=== PATIENT | female | born 1955 | race Hispanic/Latino ===

== ENCOUNTER → 2018-11-07 | Day surgery (SDC) | payer MEDICARE, OTHER ==
[~2018-11-07] MED LIST: CYCLOBENZAPRINE10 MG PO; CYMBALTA30 MG PO; FENTANYL CITRATE/PF 100MCG/2 ML INJ ONE; LEVEMIR100 UNIT/1 SQ; LOSARTAN POTASS25 MG PO; LOSARTAN-HCTZ1 EAC1 PO; MIDAZOLAM HCL 2 MG/2 ML VIAL ONE; NOVOLOG MI100 UNIT/1 SQ; OR PHACO EYE KIT ONE; PREOP PHACO EYE KIT ONE; PROVENTIL HFA6.7 GM INH; ULTRAM 50MG50 MG PO; magnesium PO; tri PO; vitamin d3 PO
--- OUTSIDE RECORDS SUMMARY | 2018-11-07 11:51 | XMS REPORT | CCD ---
Author Author Auto Generated Organization [facility] Address Unknown Phone Unavailable Care Team Providers Care Winding Machine Operator Name Role Phone Soy Brooks RP Allergies, Adverse Reactions, Alerts Substance Reaction Status penicillin Active Problem List Condition Effective Dates Status DM - Diabetes mellitus Active HTN - Hypertension Resolved Hyperlipemia Resolved Hypothyroidism Resolved Medications Medication Instructions Start Date End Date Status pneumococcal 0.5 ml, Route: IM, Drug Form: INJ, 08/15/2013 08/15/2013 Completed 23-valent vaccine Start date: 08/15/13 9:00:00, Stop date: 08/15/13 9:00:00 glucagon 1 mg, Route: IM, Drug form: 08/15/2013 08/17/2013 Discontinued PDR/INJ, PRN, PRN Blood Glucose Results, Start date: 08/15/13 2:10:00, Duration: 30 day, Stop date: 09/14/13 1:09:00 Dextrose 50% in 50 mL, Route: IVP, Start date: 08/15/2013 08/17/2013 Discontinued Water IV 08/15/13 2:10:00, Duration: 30 day, Stop date: 09/14/13 1:09:00, PRN Blood Glucose Results NovoLog FlexPen 6 unit, 0.06 mL, Route: SUB-Q, Drug 08/15/2013 08/15/2013 Discontinued form: SOLN, Sliding Scale, PRN Blood Glucose Results, Start date: 08/15/13 2:10:00, Duration: 30 day, Stop date: 09/14/13 1:09:00Roll in palms of hands gently; Do not shake vigorously. (Same as: NovoLog)"single patient use only" Stable for 28 days at room temperature.Expires in days from Date NovoLog FlexPen 3 unit, 0.03 mL, Route: SUB-Q, Drug 08/15/2013 08/15/2013 Discontinued form: SOLN, Sliding Scale, PRN Blood Glucose Results, Start date: 08/15/13 2:10:00, Duration: 30 day, Stop date: 09/14/13 1:09:00Roll in palms of hands gently; Do not shake vigorously. (Same as: NovoLog)"single patient use only" Stable for 28 days at room temperature.Expires in days from Date NovoLog FlexPen 2 unit, 0.02 mL, Route: SUB-Q, Drug 08/15/2013 08/15/2013 Discontinued form: SOLN, Sliding Scale, PRN Blood Glucose Results, Start date: 08/15/13 2:10:00, Duration: 30 day, Stop date: 09/14/13 1:09:00Roll in palms of hands gently; Do not shake vigorously. (Same as: NovoLog)"single patient use only" Stable for 28 days at room temperature.Expires in days from Date NovoLog FlexPen 5 unit, 0.05 mL, Route: SUB-Q, Drug 08/15/2013 08/15/2013 Discontinued form: SOLN, Sliding Scale, PRN Blood Glucose Results, Start date: 08/15/13 2:10:00, Duration: 30 day, Stop date: 09/14/13 1:09:00Roll in palms of hands gently; Do not shake vigorously. (Same as: NovoLog)"single patient use only" Stable for 28 days at room temperature.Expires in days from Date NovoLog FlexPen 4 unit, 0.04 mL, Route: SUB-Q, Drug 08/15/2013 08/15/2013 Discontinued form: SOLN, Sliding Scale, PRN Blood Glucose Results, Start date: 08/15/13 2:10:00, Duration: 30 day, Stop date: 09/14/13 1:09:00Roll in palms of hands gently; Do not shake vigorously. (Same as: NovoLog)"single patient use only" Stable for 28 days at room temperature.Expires in days from Date glucagon 1 mg, Route: IM, PRN, Dosing Weight 08/15/2013 08/15/2013 Deleted 70.455, kg, PRN Blood Glucose Results, Start date: 08/15/13 8:46:00, Duration: 30 day, Stop date: 09/14/13 7:45:00 insulin aspart 2 unit, 0.02 mL, Route: SUB-Q, Drug 08/15/2013 08/17/2013 Discontinued form: SOLN, TID-Before Meals, Dosing Weight 70.455, kg, PRN Blood Glucose Results, Start date: 08/15/13 8:46:00, Duration: 30 day, Stop date: 09/14/13 8:45:00Roll in palms of hands gently; Do not shake vigorously. (Same as: NovoLog)"single patient use only" Stable for 28 days at room temperature.Expires in days from Date insulin aspart 4 unit, 0.04 mL, Route: SUB-Q, Drug 08/15/2013 08/17/2013 Discontinued form: SOLN, Bedtime, Dosing Weight 70.455, kg, PRN Blood Glucose Results, Start date: 08/15/13 8:46:00, Duration: 30 day, Stop date: 09/14/13 8:45:00Roll in palms of hands gently; Do not shake vigorously. (Same as: NovoLog)"single patient use only" Stable for 28 days at room temperature.Expires in days from Date insulin aspart 3 unit, 0.03 mL, Route: SUB-Q, Drug 08/15/2013 08/17/2013 Discontinued form: SOLN, Bedtime, Dosing Weight 70.455, kg, PRN Blood Glucose Results, Start date: 08/15/13 8:46:00, Duration: 30 day, Stop date: 09/14/13 8:45:00Roll in palms of hands gently; Do not shake vigorously. (Same as: NovoLog)"single patient use only" Stable for 28 days at room temperature.Expires in days from Date insulin aspart 2 unit, 0.02 mL, Route: SUB-Q, Drug 08/15/2013 08/17/2013 Discontinued form: SOLN, Bedtime, Dosing Weight 70.455, kg, PRN Blood Glucose Results, Start date: 08/15/13 8:46:00, Duration: 30 day, Stop date: 09/14/13 8:45:00Roll in palms of hands gently; Do not shake vigorously. (Same as: NovoLog)"single patient use only" Stable for 28 days at room temperature.Expires in days from Date insulin aspart 1 unit, 0.01 mL, Route: SUB-Q, Drug 08/15/2013 08/17/2013 Discontinued form: SOLN, Bedtime, Dosing Weight 70.455, kg, PRN Blood Glucose Results, Start date: 08/15/13 8:46:00, Duration: 30 day, Stop date: 09/14/13 8:45:00Roll in palms of hands gently; Do not shake vigorously. (Same as: NovoLog)"single patient use only" Stable for 28 days at room temperature.Expires in days from Date Dextrose 50% Syringe 25 mL, Route: IVP, Dosing Weight 08/15/2013 08/15/2013 Deleted 70.455, kg, PRN, PRN Blood Glucose Results, Start date: 08/15/13 8:46:00, Duration: 30 day, Stop date: 09/14/13 7:45:00 Dextrose 50% Syringe 50 mL, Route: IVP, Dosing Weight 08/15/2013 08/15/2013 Deleted 70.455, kg, PRN, PRN Blood Glucose Results, Start date: 08/15/13 8:46:00, Duration: 30 day, Stop date: 09/14/13 7:45:00 insulin aspart 4 unit, 0.04 mL, Route: SUB-Q, Drug 08/15/2013 08/17/2013 Discontinued form: SOLN, TID-Before Meals, Dosing Weight 70.455, kg, PRN Blood Glucose Results, Start date: 08/15/13 8:46:00, Duration: 30 day, Stop date: 09/14/13 8:45:00Roll in palms of hands gently; Do not shake vigorously. (Same as: NovoLog)"single patient use only" Stable for 28 days at room temperature.Expires in days from Date insulin aspart 8 unit, 0.08 mL, Route: SUB-Q, Drug 08/15/2013 08/17/2013 Discontinued form: SOLN, TID-Before Meals, Dosing Weight 70.455, kg, PRN Blood Glucose Results, Start date: 08/15/13 8:46:00, Duration: 30 day, Stop date: 09/14/13 8:45:00Roll in palms of hands gently; Do not shake vigorously. (Same as: NovoLog)"single patient use only" Stable for 28 days at room temperature.Expires in days from Date insulin aspart 6 unit, 0.06 mL, Route: SUB-Q, Drug 08/15/2013 08/17/2013 Discontinued form: SOLN, TID-Before Meals, Dosing Weight 70.455, kg, PRN Blood Glucose Results, Start date: 08/15/13 8:46:00, Duration: 30 day, Stop date: 09/14/13 8:45:00Roll in palms of hands gently; Do not shake vigorously. (Same as: NovoLog)"single patient use only" Stable for 28 days at room temperature.Expires in days from Date insulin aspart 10 unit, 0.1 mL, Route: SUB-Q, Drug 08/15/2013 08/17/2013 Discontinued form: SOLN, TID-Before Meals, Dosing Weight 70.455, kg, PRN Blood Glucose Results, Start date: 08/15/13 8:46:00, Duration: 30 day, Stop date: 09/14/13 8:45:00Roll in palms of hands gently; Do not shake vigorously. (Same as: NovoLog)"single patient use only" Stable for 28 days at room temperature.Expires in days from Date NovoLog FlexPen 1 unit, 0.01 mL, Route: SUB-Q, Drug 08/15/2013 08/15/2013 Discontinued form: SOLN, Sliding Scale, PRN Blood Glucose Results, Start date: 08/15/13 2:10:00, Duration: 30 day, Stop date: 09/14/13 1:09:00Roll in palms of hands gently; Do not shake vigorously. (Same as: NovoLog)"single patient use only" Stable for 28 days at room temperature.Expires in days from Date NovoLog FlexPen 4 unit, 0.04 mL, Route: SUB-Q, Drug 08/15/2013 08/15/2013 Discontinued form: SOLN, Sliding Scale, PRN Blood Glucose Results, Start date: 08/15/13 2:09:00, Duration: 30 day, Stop date: 09/14/13 1:08:00Roll in palms of hands gently; Do not shake vigorously. (Same as: NovoLog)"single patient use only" Stable for 28 days at room temperature.Expires in days from Date NovoLog FlexPen 3 unit, 0.03 mL, Route: SUB-Q, Drug 08/15/2013 08/15/2013 Discontinued form: SOLN, Sliding Scale, PRN Blood Glucose Results, Start date: 08/15/13 2:09:00, Duration: 30 day, Stop date: 09/14/13 1:08:00Roll in palms of hands gently; Do not shake vigorously. (Same as: NovoLog)"single patient use only" Stable for 28 days at room temperature.Expires in days from Date NovoLog FlexPen 2 unit, 0.02 mL, Route: SUB-Q, Drug 08/15/2013 08/15/2013 Discontinued form: SOLN, Sliding Scale, PRN Blood Glucose Results, Start date: 08/15/13 2:09:00, Duration: 30 day, Stop date: 09/14/13 1:08:00Roll in palms of hands gently; Do not shake vigorously. (Same as: NovoLog)"single patient use only" Stable for 28 days at room temperature.Expires in days from Date NovoLog FlexPen 1 unit, 0.01 mL, Route: SUB-Q, Drug 08/15/2013 08/15/2013 Discontinued form: SOLN, Sliding Scale, PRN Blood Glucose Results, Start date: 08/15/13 2:09:00, Duration: 30 day, Stop date: 09/14/13 1:08:00Roll in palms of hands gently; Do not shake vigorously. (Same as: NovoLog)"single patient use only" Stable for 28 days at room temperature.Expires in days from Date pneumococcal 0.5 ml, Route: IM, Drug Form: INJ, 08/15/2013 08/15/2013 Completed 23-valent vaccine Daily, Start date: 08/15/13 9:00:00, Duration: 1 doses or times, Stop date: 08/15/13 9:00:00(Same as: Pneumovax 23) Refrigerate citalopram 20 mg 20 mg, 1 tab, PO, Daily, 30 tab, 08/16/2013 Ordered oral tablet Substitution Allowed, TAB levothyroxine 25 mcg 25 microgram, 1 tab, PO, Q630AM, 30 08/16/2013 Ordered (0.025 mg) oral tab, Substitution Allowed, TAB tablet omeprazole 40 mg 40 mg, 1 cap, PO, Daily, 30 cap, 08/16/2013 Ordered oral delayed release Substitution Allowed, DRC capsule atorvastatin 10 mg, 1 tab, Route: PO, Drug form: 08/16/2013 08/17/2013 Discontinued TAB, Daily, Dosing Weight 70.455, kg, Start date: 08/16/13 9:00:00, Duration: 30 day, Stop date: 09/14/13 9:00:00(Same As: Lipitor) SoluMedrol 40 mg, 1 mL, Route: IV, Drug form: 08/14/2013 08/14/2013 Completed INJ, ONCE, Dosing Weight 70.455, kg, Priority: STAT, Start date: 08/14/13 19:31:00, Stop date: 08/14/13 19:31:00(Same as:Solu-Medrol, A-Methapred) Protonix 40 mg, 1 tab, Route: PO, Drug form: 08/15/2013 08/17/2013 Discontinued ECTAB, Q12H, Start date: 08/15/13 21:00:00, Duration: 30 day, Stop date: 09/14/13 9:00:00Tablet should not be chewed or crushed.(Same as: Protonix) Benadryl 50 mg, 1 mL, Route: IV, Drug form: 08/14/2013 08/14/2013 Completed INJ, ONCE, Dosing Weight 70.455, kg, Priority: STAT, Start date: 08/14/13 19:31:00, Stop date: 08/14/13 19:31:00(Same as: Benadryl) nitroglycerin 0.4 mg 0.4 mg, 1 tab, Route: SL, Drug 08/14/2013 08/17/2013 Discontinued sublingual tablet form: TAB, Q5Min, PRN Chest Pain, Start date: 08/14/13 16:04:00, Duration: 30 day, Stop date: 09/13/13 15:03:00(Same as:Nitroquick, Nitrostat)"Do Not Crush" Sublingual tablet atropine 0.5 mg, 5 mL, Route: IVP, Drug 08/14/2013 08/17/2013 Discontinued form: INJ, PRN, PRN Bradycardia, Start date: 08/14/13 16:03:00, Duration: 30 day, Stop date: 09/13/13 15:02:00 atorvastatin 10 mg 10 mg, 1 tab, PO, Daily, 30 tab, 08/14/2013 Ordered oral tablet Substitution Allowed, TAB Zofran 4 mg, 2 mL, Route: IVP, Drug form: 08/14/2013 08/17/2013 Discontinued INJ, Q6H, PRN Nausea & Vomiting, Start date: 08/14/13 16:03:00, Duration: 30 day, Stop date: 09/13/13 16:02:00(Same as: Zofran) metFORmin 1,000 mg, PO, Daily, Substitution 08/14/2013 08/17/2013 Discontinued Allowed Protonix 40 mg, Route: IVP, Drug form: INJ, 08/14/2013 08/15/2013 Discontinued Q12H, Start date: 08/14/13 21:00:00, Duration: 30 day, Stop date: 09/13/13 9:00:00For IV push reconstitute with 10 ml 0.9% sodium chloride and push over 2 minutes. (Same as: Protonix) Sodium Chloride 0.9% 1,000 mL, Rate: 25 ml/hr, Infuse 08/16/2013 08/16/2013 Discontinued IV 1,000 mL over: 40 hr, Route: IV, Dosing Weight 70.455 kg, Total Volume: 1,000, Start date: 08/16/13 11:25:00, Duration: 1 day, Stop date: 08/17/13 11:24:00 Levothroid 25 microgram, 1 tab, Route: PO, 08/15/2013 08/17/2013 Discontinued Drug form: TAB, Q630AM, Start date: 08/15/13 14:00:00, Duration: 30 day, Stop date: 09/14/13 6:30:00Take 1 hour before or 2 hours after meal; Enteral feeds may interefere with the absorption of this medication. (Same as:Levothroid) NS 1,000 mL 1,000 mL, Rate: 125 ml/hr, Infuse 08/14/2013 08/17/2013 Discontinued over: 8 hr, Route: IV, Dosing Weight 70.455 kg, Total Volume: 1,000, Start date: 08/14/13 21:05:00, Duration: 30 day, Stop date: 09/13/13 21:04:00 Celexa 20 mg, 1 tab, Route: PO, Drug form: 08/15/2013 08/17/2013 Discontinued TAB, Daily, Start date: 08/15/13 14:00:00, Duration: 30 day, Stop date: 09/14/13 9:00:00(Same As: Celexa) Tylenol 650 mg, 2 tab, Route: PO, Drug 08/14/2013 08/17/2013 Discontinued form: TAB, Q4H, Dosing Weight 70.455, kg, PRN Pain, Start date: 08/14/13 21:05:00, Duration: 30 day, Stop date: 09/13/13 21:04:00Do not exceed 4 gm/day. (Same as: Tylenol) pneumococcal 0.5 ml, Route: IM, Drug Form: INJ, 12/19/2006 12/19/2006 Completed 23-valent vaccine ONCE, Start date: 12/19/06 7:20:00, Stop date: 12/19/06 7:20:00LOT#: Mfg: (Same as: Pneumovax 23) Immunizations Vaccine Date Status pneumococcal 23-valent vaccine 12/19/2006 Auth (Verified) pneumococcal 23-valent vaccine 08/15/2013 Auth (Verified) Vital Signs Most recent to oldest [Reference Range]: 1 2 3 Height 165.1 cm (08/14/2013 15:49:00) Temperature Oral [96.4-99.1 DegF] 97.7 DegF (08/17/2013 12:00:00) 98.0 DegF (08/17/2013 08:00:00) 97.9 DegF (08/17/2013 04:47:00) Systolic Blood Pressure [90-140 mmHg] 128 mmHg (08/17/2013 12:00:00) 118 mmHg (08/17/2013 08:00:00) 106 mmHg (08/17/2013 04:47:00) Diastolic Blood Pressure [60-90 mmHg] 77 mmHg (08/17/2013 12:00:00) 68 mmHg (08/17/2013 08:00:00) 66 mmHg (08/17/2013 04:47:00) Respiratory Rate [14-20 BRMIN] 16 BRMIN (08/17/2013 12:00:00) 16 BRMIN (08/17/2013 08:00:00) 15 BRMIN (08/17/2013 04:47:00) Peripheral Pulse Rate [60-100 bpm] 71 bpm (08/17/2013 12:00:00) 69 bpm (08/17/2013 08:00:00) 73 bpm (08/17/2013 04:47:00) Weight 70.455 kg (08/14/2013 15:49:00) Results BEDSIDE GLUCOSE TESTING Most recent to oldest [Reference Range]: 1 2 3 Glucose POC [70-99 mg/dL] 254 mg/dL 1 *HI* (08/17/2013 10:57:00) 185 mg/dL 2 *HI* (08/17/2013 06:21:00) 237 mg/dL 3 *HI* (08/16/2013 21:14:00) Gluc POC Comment 1 Notified RN/MD *NA* (08/17/2013 10:57:00) Notified RN/MD *NA* (08/15/2013 12:04:00) Notified RN/MD *NA* (08/15/2013 06:01:00) 1Interpretive Data: Upper Reportable Limit: 200 mg/dL. 2Interpretive Data: Upper Reportable Limit: 200 mg/dL. 3Interpretive Data: Upper Reportable Limit: 200 mg/dL. URINALYSIS Most recent to oldest [Reference Range]: 1 2 3 UA Turbidity [Clear] Clear (08/14/2013 19:44:00) UA Color Ltyellow *NA* (08/14/2013 19:44:00) UA pH [5.0-8.0] 5.0 (08/14/2013 19:44:00) UA Spec Grav [<=1.030] 1.031 *HI* (08/14/2013 19:44:00) UA Glucose [Negative mg/dL] Negative mg/dL *NA* (08/14/2013 19:44:00) UA Blood [Negative] Negative (08/14/2013 19:44:00) UA Ketones [Negative mg/dL] Negative mg/dL *NA* (08/14/2013 19:44:00) UA Protein [Negative mg/dL] Negative mg/dL (08/14/2013 19:44:00) UA Urobilinogen [0.1-1.0 mg/dL] <=1.0 mg/dL *NA* (08/14/2013 19:44:00) UA Bili [Negative] Negative *NA* (08/14/2013 19:44:00) UA Leuk Est [Negative] Negative (08/14/2013 19:44:00) UA Nitrite [Negative] Negative (08/14/2013 19:44:00) UA WBC [0-5 /HPF] 1 /HPF (08/14/2013 19:44:00) UA RBC [0-2 /HPF] 1 /HPF (08/14/2013 19:44:00) UA Bacteria [None Seen /HPF] Occasional /HPF *NA* (08/14/2013 19:44:00) UA Sq Epi [Few /LPF] Occasional /LPF *NA* (08/14/2013 19:44:00) CHEMISTRY Most recent to oldest [Reference Range]: 1 2 3 Sodium Lvl [135-145 mEq/L] 144 mEq/L (08/16/2013 04:29:00) 135 mEq/L (08/14/2013 16:00:00) Potassium Lvl [3.5-5.1 mEq/L] 4.0 mEq/L (08/16/2013 04:29:00) 3.6 mEq/L (08/14/2013 16:00:00) Chloride Lvl [95-109 mEq/L] 108 mEq/L (08/16/2013 04:29:00) 100 mEq/L (08/14/2013 16:00:00) CO2 [24-32 mEq/L] 29 mEq/L (08/16/2013 04:29:00) 26 mEq/L (08/14/2013 16:00:00) AGAP [10.0-20.0 mEq/L] 11.0 mEq/L (08/16/2013:29:00) 12.6 mEq/L (08/14/2013 16:00:00) Creatinine Lvl [0.5-1.4 mg/dL] 0.7 mg/dL (08/16/2013:29:00) 0.7 mg/dL (08/14/2013 16:00:00) eGFR 95 mL/min/1.73m2 4 *NA* (08/16/2013 04:29:00) 95 mL/min/1.73m2 5 *NA* (08/14/2013 16:00:00) BUN [7-22 mg/dL] 11 mg/dL (08/16/2013 04:29:00) 13 mg/dL (08/14/2013 16:00:00) B/C Ratio [6-25] 19 (08/14/2013 16:00:00) Glucose Lvl [70-99 mg/dL] 166 mg/dL 6 *HI* (08/16/2013 04:29:00) 216 mg/dL 7 *HI* (08/14/2013 16:00:00) Total Protein [6.4-8.4 g/dL] 8.1 g/dL (08/14/2013 16:00:00) Albumin Lvl [3.5-5.0 g/dL] 4.1 g/dL (08/14/2013 16:00:00) Globulin [2.0-4.0 g/dL] 4.0 g/dL (08/14/2013 16:00:00) A/G Ratio [0.7-1.6] 1.0 (08/14/2013 16:00:00) Calcium Lvl [8.5-10.5 mg/dL] 8.0 mg/dL *LOW* (08/16/2013 04:29:00) 9.3 mg/dL (08/14/2013 16:00:00) ALT [0-65 unit/L] 40 unit/L (08/14/2013 16:00:00) AST [0-37 unit/L] 14 unit/L (08/14/2013 16:00:00) Alk Phos [39-136 unit/L] 101 unit/L (08/14/2013 16:00:00) Bili Total [0.2-1.3 mg/dL] 0.9 mg/dL (08/14/2013 16:00:00) Amylase Lvl [25-115 unit/L] 23 unit/L *LOW* (08/14/2013 16:00:00) Lipase Lvl [73-393 unit/L] 100 unit/L (08/14/2013 16:00:00) Total CK [12-191 unit/L] 46 unit/L (08/17/2013 10:28:00) 65 unit/L (08/14/2013 16:00:00) CK MB [0.5-3.6 ng/mL] <0.5 ng/mL (08/14/2013 16:00:00) CK MB Index [0.0-2.5] <0.8 (08/14/2013 16:00:00) Troponin-I [0.00-0.40 ng/mL] <0.02 ng/mL (08/17/2013 10:28:00) <0.02 ng/mL (08/14/2013 16:00:00) 4Result Comment: The eGFR is calculated using the CKD-EPI formula. In most young, healthy individuals the eGFR will be >90 mL/min/1.73m2. The eGFR declines with age. An eGFR of 60-89 may be normal in some populations, particularly the elderly, for whom the CKD-EPI formula has not been extensively validated. Use of the eGFR is not recommended in the following populations: Individuals with unstable creatinine concentrations, including patients and those with serious co-morbid conditions. Patients with extremes in muscle mass or diet. The data above are obtained from the National [employer] Education Program ( [employer]) which additionally recommends that when the eGFR is used in patients with extremes of body mass index for purposes of drug dosing, the eGFR should be mul tiplied by the estimated BMI. 5Result Comment: The eGFR is calculated using the CKD-EPI formula. In most young, healthy individuals the eGFR will be >90 mL/min/1.73m2. The eGFR declines with age. An eGFR of 60-89 may be normal in some populations, particularly the elderly, for whom the CKD-EPI formula has not been extensively validated. Use of the eGFR is not recommended in the following populations: Individuals with unstable creatinine concentrations, including patients and those with serious co-morbid conditions. Patients with extremes in muscle mass or diet. The data above are obtained from the National Kid[employer] Education Program ( NKDEP) which additionally recommends that when the eGFR is used in patients with extremes of body mass index for purposes of drug dosing, the eGFR should be mul tiplied by the estimated BMI. 6Interpretive Data: Adult reference range values reflect the clinical guidelines of the [place] [employer]. 7Interpretive Data: Adult reference range values reflect the clinical guidelines of the [place] [employer]. HEMATOLOGY Most recent to oldest [Reference Range]: 1 2 3 WBC [3.7-10.4 K/CMM] 10.2 K/CMM (08/14/2013 16:00:00) RBC [4.20-5.40 M/CMM] 4.50 M/CMM (08/14/2013 16:00:00) Hgb [12.0-16.0 g/dL] 13.9 g/dL (08/14/2013 16:00:00) Hct [36.0-48.0 %] 40.9 % (08/14/2013 16:00:00) MCV [81.0-99.0 fL] 90.9 fL (08/14/2013 16:00:00) MCH [27.0-31.0 pg] 30.8 pg (08/14/2013 16:00:00) MCHC [32.0-36.0 g/dL] 33.9 g/dL (08/14/2013 16:00:00) RDW [11.5-14.5 %] 12.4 % (08/14/2013 16:00:00) Platelet [133-450 K/CMM] 241 K/CMM (08/14/2013 16:00:00) MPV [7.4-10.4 fL] 9.2 fL (08/14/2013 16:00:00) Segs [45.0-75.0 %] 59.0 % (08/14/2013 16:00:00) Lymphocytes [20.0-40.0 %] 31.5 % (08/14/2013 16:00:00) Monocytes [2.0-12.0 %] 7.8 % (08/14/2013 16:00:00) Eosinophils [0.0-4.0 %] 1.3 % (08/14/2013 16:00:00) Basophils [0.0-1.0 %] 0.4 % (08/14/2013 16:00:00) Segs-Bands # [1.5-8.1 K/CMM] 6.0 K/CMM (08/14/2013 16:00:00) Lymphocytes # [1.0-5.5 K/CMM] 3.2 K/CMM (08/14/2013 16:00:00) Monocytes # [0.0-0.8 K/CMM] 0.8 K/CMM (08/14/2013 16:00:00) Eosinophils # [0.0-0.5 K/CMM] 0.1 K/CMM (08/14/2013 16:00:00) Basophils # [0.0-0.2 K/CMM] 0.0 K/CMM (08/14/2013 16:00:00) PT [12.0-14.7 seconds] 12.6 seconds (08/14/2013 16:00:00) INR [0.85-1.17] 0.95 8 (08/14/2013 16:00:00) D-Dimer 0.22 ug/mL FEU 9 *NA* (08/14/2013 16:00:00) PTT [22.9-35.8 seconds] 29.0 seconds 10 (08/14/2013 16:00:00) 8Interpretive Data: RECOMMENDED RANGES FOR PROTIME INR: 2.0-3.0 for most medical and surgical thromboembolic states. 2.5-3.5 for artificial heart valves and recurrent embolism. INR SHOULD BE USED ONLY FOR PATIENTS ON STABLE ANTICOAGULANT THERAPY. 9Interpretive Data: In DIC, quantitative D-Dimer is generally greater than 0.66 ug/mL FEU. Values of quantitative D-Dimer less than 0.40 ug/mL FEU have been reported to be associated with a low probability of deep vein thrombosis/pulmonary embolism. This test alone should not be used to rule out DVT/PE. 10Interpretive Data: Heparin Therapeutic Range: 57 - 92 Seconds Procedures Procedures Date Related Diagnosis Cholecystectomy Hysterectomy
--- OUTSIDE RECORDS SUMMARY | 2018-11-07 11:51 | XMS REPORT | Continuity of Care Document ---
Author Author Taiwo [facility] Interface Address Unknown Phone Unavailable Problems Problem Status Onset Date Classification Date Reported Comments Source PAIN Active 09/07/2018 [facility] HEADACHE/BODY PAIN Active 08/08/2018 [facility] Dehydration 11/26/2017 02/28/2018 [facility] Acute bronchitis due to other specified organisms 11/23/2017 02/23/2018 [facility] FLU Active 11/21/2017 [facility] Acute bronchitis, viral 11/17/2017 02/23/2018 [facility] Myalgia 11/17/2017 02/23/2018 [facility] FLU LIKE SYMPTOMS Active 11/17/2017 [facility] Discharge Diagnosis: Acute pyelonephritis 06/22/2017 06/25/2017 [facility] Discharge Diagnosis: Noncompliance with diabetes treatment 06/22/2017 06/25/2017 [facility] Discharge Diagnosis: Fall from ground level 06/22/2017 06/25/2017 [facility] Discharge Diagnosis: Acute left-sided low back pain without sciatica 06/22/2017 06/25/2017 [facility] Discharge Diagnosis: Type 2 diabetes mellitus with hyperglycemia, with long-term current use of insulin 06/22/2017 06/25/2017 [facility] FALL Active 06/22/2017 [facility] Discharge Diagnosis: Low back pain 02/07/2016 02/10/2016 [facility] Discharge Diagnosis: Hematuria, unspecified 02/07/2016 02/10/2016 [facility] BACK PAIN Active 02/03/2016 [facility] ROUTINE Active 11/10/2015 [facility] Discharge Diagnosis: Acute URI 10/14/2015 10/17/2015 [facility] SCREENING Active 05/21/2015 [facility] Discharge Diagnosis: Hyperglycemia 05/05/2015 05/08/2015 [facility] Discharge Diagnosis: Bartholin's gland abscess 05/05/2015 05/08/2015 [facility] VAGINAL PAIN Active 05/05/2015 [facility] UNK Active 05/15/2014 [facility] ICD 782.2 / CPT 17900 Active 05/15/2014 [facility] CHEST PAIN Active 11/08/2013 [facility] NAUSEA, VOMITING Active 08/14/2013 [facility] ABD PAIN Active 02/20/2013 [facility] DM - Diabetes mellitus Active Problem 02/22/2013 [facility] DM - Diabetes mellitus Active Problem 02/28/2018 [facility] HTN - Hypertension Resolved Problem 08/23/2013 [facility] Hyperlipemia Active Problem 11/22/2015 [facility] Hypothyroidism Active Problem 02/28/2018 [facility] HTN - Hypertension Resolved Problem 11/12/2013 [facility] Hyperlipemia Resolved Problem 11/12/2013 [facility] Depression Active Problem 02/28/2018 [facility] Hyperlipemia Active Problem 02/28/2018 [facility] Type 2 diabetes mellitus without complications 02/28/2018 [facility] Major depressive disorder, single episode, unspecified 02/23/2018 [facility] Hyperlipidemia, unspecified 02/23/2018 [facility] Nicotine dependence, cigarettes, uncomplicated 02/23/2018 [facility] Influenza due to other identified influenza virus with other respiratory manifestations 02/28/2018 [facility] Anorexia 02/28/2018 [facility] Hypothyroidism, unspecified 02/28/2018 [facility] Pure hypercholesterolemia, unspecified 02/28/2018 [facility] vermin exterminator use of insulin 02/28/2018 [facility] Gastroesophageal reflux disease without esophagitis Active Problem 10/18/2018 Enayet Rahim Hypothyroidism, unspecified type Active Problem 10/18/2018 Enayet Rahim Uncontrolled hypertension Active Problem 10/18/2018 Enayet Rahim Uncontrolled type 2 diabetes mellitus without complication, without long-term current use of insulin Active Problem 10/18/2018 Enmonaet Rahim Severe episode of recurrent major depressive disorder, without psychotic features Active Problem 10/18/2018 Enayet Rahim Pure hypercholesterolemia Active Problem 10/18/2018 Enayet Rahim Influenza A Active Diagnosis 03/16/2018 Mauricio Olearyhim Acute bronchitis, unspecified organism Active Diagnosis 12/01/2017 Enaymartha Rahim Arthritis Active Problem 10/18/2018 Enmonaet Rahim Viral syndrome Active Diagnosis 08/16/2018 Mauricio Parkm Encounter to establish care Active Diagnosis 12/16/2016 Mauricio Parkm Acute non intractable tension-type headache Active Diagnosis 12/16/2016 Mauricio aPrkm Bilateral incipient cataracts Active Problem 10/18/2018 Enayet Rahim SLE Active Problem 10/18/2018 Mauricio Johns Preoperative general physical examination Active Diagnosis 10/18/2018 Mauricio Johns Diabetes mellitus without mention of complication, type II or unspecified type, uncontrolled Active Diagnosis 12/18/2016 Mauricio Johns LOCAL SUPRFICIAL SWELLNG Active [facility] ENCNTR SCREEN MAMMOGRAM FOR MALIGNANT NE Active [facility] LUMBAR DD Active [facility] Medications Medication Details Route Status Patient Instructions Ordering Provider Order Date Source Duloxetine HCl 1 capsule Orally Active 30 MG Orally Once a day [facility] 09/11/2018 Mauricio Johns Humalog KwikPen 5 units Subcutaneous Active 200 UNIT/ML Subcutaneous tid [facility] 09/11/2018 Mauricio Johns Levemir Flex touch 30 units intradermal Active 100 units intradermal bid [facility] 08/14/2018 Mauricio Johns NovoLog Flexpen 5 units Subcutaneous Active 100 UNIT/ML Subcutaneous tid [facility] 08/14/2018 Mauricio Johns Albuterol Sulfate HFA 2 puffs as needed Inhalation Active 108 (90 Base) MCG/ACT Inhalation every 4 hrs as needed [facility] 11/25/2017 Mauricio Johns PredniSONE 1 tablet Orally Active 20 mg Orally Once a day [facility] 11/25/2017 Mauricio Johns Promethazine-Codeine 5 ml as needed Orally Active 6.25-10 MG/5ML Orally every 8 hrs as needed [facility] 11/25/2017 Mauricio Johns Tessalon Perles 1 capsule as needed Orally Active 100 mg Orally Three times a day [facility] 11/23/2017 Mauricio Johns azithromycin 250 mg oral tablet See Instructions, Take 2 tablets by mouth the first day then 1 tablet by mouth daily on days 2-5., X 5 day, # 6 tab, 0 Refill(s), other No Longer Active 11/22/2017 [facility] predniSONE 20 mg oral tablet 40 mg=2 tab, PO, Daily, 0 Refill(s) Active 11/22/2017 [facility] oseltamivir 75 mg oral capsule 75 mg=1 cap, PO, [id number], 0 Refill(s) Active 11/22/2017 [facility] Prednisone 40 mg, 2 tab, Route: PO, Drug form: TAB, Daily, Dosing Weight 65.909, kg, Start date: 11/22/17 9:00:00 [employer], Duration: 30 day, Stop date: 12/21/17 9:00:00 CSTNotes: Take with food. Inactive 11/22/2017 [facility] Sodium Chloride 0.9% IV 1,000 mL 1,000 mL, Rate: 75 ml/hr, Infuse over: 13.3 hr, Route: IV, Dosing Weight 67 kg, Total Volume: 1,000, Start date: 11/22/17 8:43:00 [employer], Duration: 30 day, Stop date: 12/22/17 8:42:00 [employer], 1.76, m2 Inactive 11/22/2017 [facility] Robitussin 200 mg, 10 mL, Route: PO, Drug Form: LIQ, Dosing Weight 67, kg, Q6H, PRN Cough, Start date: 11/21/17 21:49:00 [employer], Duration: 30 day, Stop date: 12/21/17 21:48:00 CSTNotes: (Same as: Robitussin) No Longer Active 11/22/2017 [facility] atorvastatin 80 mg oral tablet 40 mg=0.5 tab, PO, Daily, 0 Refill(s) Active 11/22/2017 [facility] Sertraline 50 mg, PO, Daily, 0 Refill(s) Active 11/22/2017 [facility] losartan 25 mg oral tablet 25 mg=1 tab, PO, Daily, 0 Refill(s) Active 11/22/2017 [facility] insulin detemir 10 unit, SUB-Q, BID, 0 Refill(s) Active 11/22/2017 [facility] Aspirin 81 mg, PO, Daily, 0 Refill(s) Active 11/22/2017 [facility] Glipizide 5 MG Oral Tablet 5 mg=1 tab, PO, BID, 0 Refill(s) Active 11/22/2017 [facility] Azithromycin 500 mg, Route: IVPB, [id number], Dosing Weight 65.909, kg, Start date: 11/21/17 19:00:00 [employer], Duration: 5 day, Stop date: 11/25/17 19:00:00 [employer], ABX Indication: Non-PNA Respiratory Tract InfectionNotes: (Same As: Zithromax IV) No Longer Active 11/22/2017 [facility] Tamiflu 75 mg, 1 cap, Route: PO, Drug form: CAP, [id number], Dosing Weight 65.909, kg, CrCl > 60 ml/min, Start date: 11/21/17 19:00:00 [employer], Duration: 5 day, Stop date: 11/26/17 7:00:00 CSTNotes: Take with food. Same as: Tamiflu) No Longer Active 11/22/2017 [facility] Enoxaparin 40 mg, 0.4 mL, Route: SUB-Q, Drug form: INJ, [id number], Dosing Weight 65.909, kg, Start date: 11/21/17 19:00:00 [employer], Stop date: 12/20/17 19:00:00 CSTNotes: (Same as: Lovenox) No Longer Active 11/22/2017 [facility] Insulin Lispro 3 unit, 0.03 mL, Route: SUB-Q, Drug form: SOLN, Bedtime, Dosing Weight 65.909, kg, PRN Blood Glucose Results, Start date: 11/21/17 18:42:00 [employer], Duration: 30 day, Stop date: 12/21/17 18:41:00 CSTNotes: Roll in palms of hands gently; Do not shake `vigorously. (Same as: Humalog ) "Single Patient Use Only " WASTE: F/P - Black; E - Municipal Trash Bin Stable for 28 days at room temperature. Expires in days from Date No Longer Active 11/22/2017 [facility] Dextrose 50% Syringe 12.5 gm, 25 mL, Route: IVP, Drug Form: INJ, Dosing Weight 65.909, kg, PRN, PRN Blood Glucose Results, Start date: 11/21/17 18:42:00 [employer], Duration: 30 day, Stop date: 12/21/17 18:41:00 [employer] No Longer Active 11/22/2017 [facility] Glucagon 1 mg, Route: IM, Drug form: PDR/INJ, PRN, Dosing Weight 65.909, kg, PRN Blood Glucose Results, Start date: 11/21/17 18:42:00 [employer], Duration: 30 day, Stop date: 12/21/17 18:41:00 [employer] No Longer Active 11/22/2017 [facility] Acetaminophen 650 mg, 2 tab, Route: PO, Drug form: TAB, Q4H, Dosing Weight 65.909, kg, PRN Pain 1-3/Temp > 100.4 F, Start date: 11/21/17 18:40:00 [employer], Duration: 30 day, Stop date: 12/21/17 18:39:00 CSTNotes: Do not exceed 4 gm/day. (Same as: Tylenol) No Longer Active 11/22/2017 [facility] Ondansetron 4 mg, 2 mL, Route: IVP, Drug form: INJ, Q6H, Dosing Weight 65.909, kg, PRN Nausea & Vomiting, Start date: 11/21/17 18:40:00 [employer], Duration: 30 day, Stop date: 12/21/17 18:39:00 CSTNotes: (Same as: Zofran) MEDICATION WASTE Product Size: 4 mg Product Wasted: ___ mg No Longer Active 11/22/2017 [facility] Saline Flush 0.9% 10 ml, Route: IVP, Drug Form: INJ, Dosing Weight 65.909, kg, PRN, PRN Line Flush, Start date: 11/21/17 18:40:00 [employer], Duration: 30 day, Stop date: 12/21/17 18:39:00 CSTNotes: (Same as: BD Posiflush) No Longer Active 11/22/2017 [facility] Sodium Chloride 0.9% IV 1,000 mL 1,000 mL, Rate: 125 ml/hr, Infuse over: 8 hr, Route: IV, Dosing Weight 65.909 kg, Total Volume: 1,000, Start date: 11/21/17 18:40:00 [employer], Duration: 30 day, Stop date: 12/21/17 18:39:00 [employer], 1.74, m2 No Longer Active 11/22/2017 [facility] Azithromycin 2 tablets on the first day, then 1 tablet daily for 4 days Orally Active 250 MG Orally Once a day [facility] 11/22/2017 Mauricio Johns Sodium Chloride 0.9% (Bolus) IV 1,000 mL, Infuse Over: 1 hr, Route: IV, ONCE, Priority: STAT, Dosing Weight 65.909 kg, Start date: 11/17/17 2:45:00 [employer], Stop date: 11/17/17 2:45:00 [employer] Inactive 11/17/2017 [facility] Cephalexin 500 MG Oral Capsule [Keflex] 500 mg=1 cap, PO, TID, X 10 day, # 30 cap, 0 Refill(s) Active 06/23/2017 [facility] ibuprofen 600 mg oral tablet 600 mg=1 tab, PO, Q6H, PRN Pain, take with food, X 7 day, # 28 tab, 0 Refill(s) Active 06/23/2017 [facility] 3 ML Insulin, Aspart Protamine, Human 70 UNT/ML / Insulin, Aspart, Human 30 UNT/ML Prefilled Syringe [NovoLog Mix 70/30] 15 unit, SUB-Q, BID, # 1 pen(s), 0 Refill(s) Active 06/23/2017 [facility] Insulin regular 10 unit, 0.1 mL, Route: SUB-Q, Drug form: INJ, ONCE, Dosing Weight 70, kg, Priority: STAT, Start date: 06/22/17 16:27:00 CDT, Stop date: 06/22/17 16:27:00 CDTNotes: (Same as: Humulin R and NovoLIN R) WASTE: F/P - Black; E - [place] Trash Bin (Do not shake) Inactive 06/22/2017 [facility] Flexeril 10 mg, 1 tab, Route: PO, Drug form: TAB, ONCE, Dosing Weight 70, kg, Priority: STAT, Start date: 06/22/17 16:26:00 CDT, Stop date: 06/22/17 16:26:00 CDTNotes: (Same As: Flexeril) Inactive 06/22/2017 [facility] Acetaminophen 325 MG / Hydrocodone Bitartrate 10 MG Oral Tablet [Vance 10/325] 1 tab, Route: PO, Drug Form: TAB, Dosing Weight 70, kg, ONCE, Start date: 06/22/17 16:26:00 CDT, Stop date: 06/22/17 16:26:00 CDTNotes: Do not exceed 4gm/day of acetaminophen. (Same as: Vance 325/10) Inactive 06/22/2017 [facility] Ketorolac 60 mg, 2 mL, Route: IM, Drug form: INJ, ONCE, Dosing Weight 70, kg, Priority: STAT, Start date: 06/22/17 16:26:00 CDT, Stop date: 06/22/17 16:26:00 CDTNotes: (Same as:Toradol) IV bolus must be given >15 seconds. Give IM administration slowly and deeply into the muscle. Not for use > 4 days MEDICATION WASTE Product Size: 60 mg Product Wasted: ___ mg Inactive 06/22/2017 [facility] Januvia 1 tablet Orally Active 50 MG Orally Once a day [facility] 12/17/2016 Enayet Ramtallie Lisinopril 1 tablet Orally Active 10 MG Orally Once a day [facility] 7 unit, 0.07 mL, Route: IVP, Drug form: INJ, ONCE, Dosing Weight 70, kg, Priority: STAT, Start date: 02/07/16 12:18:00 CDT, Stop date: 02/07/16 12:18:00 CDTNotes: (Same as: Humulin R and NovoLIN R) WASTE: F/P - Black; E - Municipal Trash Bin (Do not shake) Inactive 02/07/2016 [facility] Sodium Chloride 0.154 MEQ/ML Injectable Solution 1,000 mL, 1,000 ml/hr, Infuse Over: 1 hr, Route: IV, 1,000, Drug form: INJ, ONCE, Priority: STAT, Dosing Weight 70 kg, Start date: 02/07/16 12:18:00 CDT, Duration: 1 doses or times, Stop date: 02/07/16 12:18:00 CDT Inactive 02/07/2016 [facility] Morphine 4 mg, 2 mL, Route: IVP, Drug form: INJ, ONCE, Dosing Weight 68.182, kg, Priority: STAT, Start date: 02/07/16 12:00:00 CDT, Stop date: 02/07/16 12:00:00 CDTNotes: (Same as:MORPhine Sulfate) Inactive 02/07/2016 [facility] Ondansetron 4 mg, 2 mL, Route: IVP, Drug form: INJ, ONCE, Dosing Weight 68.182, kg, Priority: STAT, Start date: 02/07/16 12:00:00 CDT, Stop date: 02/07/16 12:00:00 CDTNotes: (Same as: Zofran) MEDICATION WASTE Product Size: 4 mg Product Wasted: ___ mg Inactive 02/07/2016 [facility] Saline Flush 0.9% 10 mL, Route: IVP, Drug Form: INJ, Dosing Weight 68.182, kg, PRN, PRN Line Flush, Start date: 02/07/16 12:00:00 CDT, Duration: 30 day, Stop date: 03/08/16 11:59:00 CDTNotes: (Same as: BD Posiflush) Inactive 02/07/2016 [facility] Sodium Chloride 0.154 MEQ/ML Injectable Solution 1,000 mL, 1000 ml/hr, Infuse Over: 1 hr, Route: IV, 1,000, Drug form: INJ, ONCE, Priority: STAT, Dosing Weight 68.182 kg, Start date: 02/07/16 12:00:00 CDT, Duration: 1 doses or times, Stop date: 02/07/16 12:00:00 CDT Inactive 02/07/2016 [facility] Acetaminophen 300 MG / Codeine Phosphate 30 MG Oral Tablet [Tylenol with Codeine #3] 1 - 2 tab, PO, Q4H, PRN Pain, X 5 day, # 24 tab, 0 Refill(s) Active 02/03/2016 [facility] Naproxen 500 MG Oral Tablet [Naprosyn] 500 mg=1 tab, PO, BID, PRN Pain, # 28 tab, 0 Refill(s) Active 02/03/2016 [facility] Cyclobenzaprine hydrochloride 10 MG Oral Tablet [Flexeril] 10 mg, PO, TID, PRN Muscle Spasm, X 5 day, # 20 tab, 0 Refill(s) Active 02/03/2016 [facility] Dexamethasone 10 mg, 1 mL, Route: IM, Drug form: INJ, ONCE, Dosing Weight 68.182, kg, Priority: STAT, Start date: 02/03/16 18:31:00 CDT, Stop date: 02/03/16 18:31:00 CDTNotes: MEDICATION WASTE Product Size: 10 mg Product Wasted: ___ mg Inactive 02/03/2016 [facility] Ketorolac 60 mg, 2 mL, Route: IM, Drug form: INJ, ONCE, Dosing Weight 68.182, kg, Priority: STAT, Start date: 02/03/16 18:31:00 CDT, Stop date: 02/03/16 18:31:00 CDTNotes: (Same as:Toradol) IV bolus must be given >15 seconds. Give IM administration slowly and deeply into the muscle. Not for use > 4 days MEDICATION WASTE Product Size: 60 mg Product Wasted: ___ mg Inactive 02/03/2016 [facility] Flexeril 10 mg, 1 tab, Route: PO, Drug form: TAB, ONCE, Dosing Weight 68.182, kg, Priority: STAT, Start date: 02/03/16 18:31:00 CDT, Stop date: 02/03/16 18:31:00 CDTNotes: (Same As: Flexeril) Inactive 02/03/2016 [facility] Zofran ODT 4 mg, 1 tab, Route: PO, Drug form: TABDIS, ONCE, Dosing Weight 68.182, kg, Priority: STAT, Start date: 02/03/16 18:31:00 CDT, Stop date: 02/03/16 18:31:00 CDTNotes: (Same as: Zofran ODT) Inactive 02/03/2016 [facility] Morphine 4 mg, 2 mL, Route: IVP, Drug form: INJ, ONCE, Dosing Weight 68.182, kg, Start date: 02/03/16 18:31:00 CDT, Stop date: 02/03/16 18:31:00 CDTNotes: (Same as:MORPhine Sulfate) Inactive 02/03/2016 [facility] Guiatussin with Codeine 10 mL, Route: PO, Drug Form: LIQ, Dosing Weight 67.273, kg, Q4H, Start date: 10/14/15 4:00:00, Duration: 1 doses or times, Stop date: 10/14/15 4:00:00Notes: (Same As: Robitussin AC) Inactive 10/14/2015 [facility] Codeine Phosphate 2 MG/ML / Guaifenesin 20 MG/ML Oral Solution 5 mL, PO, Q6H, # 100 mL, 0 Refill(s) Active 10/14/2015 [facility] acetaminophen 325 mg oral tablet 650 mg, Route: PO, Drug form: TAB, ONCE, Dosing Weight 67.273, kg, Priority: STAT, Start date: 10/14/15 3:11:00, Stop date: 10/14/15 3:11:00 Inactive 10/14/2015 [facility] Albuterol 0.833 MG/ML / Ipratropium [place] 0.167 MG/ML Inhalant Solution [DuoNeb] 3 ml, Route: NEB, Drug Form: SOLN, Dosing Weight 67.273, kg, ONCE, PRN Respiratory Protocol, Start date: 10/14/15 1:13:00, Stop date: 11/13/15 1:12:00 Inactive 10/14/2015 [facility] tramadol hydrochloride 50 MG Oral Tablet 50 mg, Route: PO, Drug form: TAB, ONCE, Dosing Weight 67.727, kg, Priority: STAT, Start date: 05/05/15 10:05:00, Stop date: 05/05/15 10:05:00 Inactive 05/05/2015 [facility] Insulin regular 3 unit, Route: SUB-Q, ONCE, Dosing Weight 67.727, kg, Priority: STAT, Start date: 05/05/15 9:56:00, Stop date: 05/05/15 9:56:00 Inactive 05/05/2015 [facility] Sulfamethoxazole 800 MG / Trimethoprim 160 MG Oral Tablet [Bactrim] 1 tab, PO, BID, X 7 day, # 14 tab, 0 Refill(s) Active 05/05/2015 [facility] tramadol hydrochloride 50 MG Oral Tablet [Ultram] 50 mg=1 tab, PO, Q4H, PRN pain, X 3 day, # 20 tab, 0 Refill(s) Active 05/05/2015 [facility] Westcort 1 application to affected area Externally Active 0.2 % Externally Once a day [facility] 04/02/2015 Mauricio Johns Wellbutrin 1 tablet Orally Active 100 mg Orally Twice a day [facility] 03/19/2015 Mauricio Johns Nexium 1 capsule Orally Active 20 MG Orally Once a day [facility] 03/19/2015 Mauricio Johns Synthroid 1 tablet Orally Active 50 MCG Orally Once a day [facility] 10/02/2014 Mauricio Johns GlipiZIDE 1 tablet Orally Active 10 MG Orally twice a day (bid) [facility] 08/14/2014 Mauricio Johns Lipitor 1 tablet Orally Active 40 MG Orally Once a day [facility] 08/14/2014 Mauricio Johns GlipiZIDE 1 tablet Orally Active 5 MG Orally twice a day (bid) [facility] 08/14/2014 Mauricio oJhns Synthroid 1 tablet on an empty stomach in the morning Orally Active 25 MCG Orally Once a day [facility] 05/29/2014 Mauricio Johns Ondansetron 4 mg, Route: IVP, ONCE, Dosing Weight 70.455, kg, PRN Nausea & Vomiting, Start date: 05/23/14 10:39:00 Inactive 05/23/2014 [facility] Acetaminophen 325 MG / Hydrocodone Bitartrate 10 MG Oral Tablet [Vance 10/325] 1 tab, Route: PO, Drug Form: TAB, Dosing Weight 70.455, kg, Q4H, PRN Pain, Start date: 05/23/14 10:39:00, Duration: 30 day, Stop date: 06/22/14 10:38:00 Inactive 05/23/2014 [facility] Ofirmev 1,000 mg, Route: IV, Drug form: INJ, ONCE, Dosing Weight 70.455, kg, PRN Pain, for > or=50 kg, Start date: 05/23/14 10:39:00 Inactive 05/23/2014 [facility] Meperidine 12.5 mg, Route: IVP, Q30Min, Dosing Weight 70.455, kg, PRN Other -See Comment, For shivering, Start date: 05/23/14 10:39:00, Duration: 2 doses or times, Stop date: Limited # of times Inactive 05/23/2014 [facility] Flumazenil 0.2 mg, Route: IVP, PRN, Dosing Weight 70.455, kg, PRN Benzodiazepine Reversal, Initial dose, Start date: 05/23/14 10:39:00, Duration: 30 day, Stop date: 06/22/14 10:38:00 Inactive 05/23/2014 [facility] Hydromorphone 0.5 mg, Route: IVP, Q5Min, Dosing Weight 70.455, kg, PRN Pain Score 7-10, Start date: 05/23/14 10:39:00, Duration: 4 doses or times, Stop date: Limited # of times Inactive 05/23/2014 [facility] Fentanyl 25 microgram, Route: IVP, Q5Min, Dosing Weight 70.455, kg, PRN Pain Score 4-6, Start date: 05/23/14 10:39:00, Duration: 4 doses or times, Stop date: Limited # of times Inactive 05/23/2014 [facility] Naloxone 0.04 mg, Route: IVP, Q2MIN, Dosing Weight 70.455, kg, PRN Narcotic Reversal, Start date: 05/23/14 10:39:00, Duration: 8 doses or times, Stop date: Limited # of times Inactive 05/23/2014 [facility] Oxycodone 5 mg, Route: PO, Drug form: TAB, Q4H, Dosing Weight 70.455, kg, PRN Pain Score 4-6, Start date: 05/23/14 10:39:00, Duration: 30 day, Stop date: 06/22/14 10:38:00 Inactive 05/23/2014 [facility] Acetaminophen 325 MG / Hydrocodone Bitartrate 5 MG Oral Tablet 1 tab, PO, Q6H, # 15 tab, 0 Refill(s) Active 05/23/2014 [facility] Insulin, Regular, Pork 4 unit, Route: IVP, PRE OP, Dosing Weight 70.455, kg, Start date: 05/23/14 9:00:00, Duration: 30 day, Stop date: 06/22/14 8:59:00 Inactive 05/23/2014 [facility] Clindamycin 600 mg, Route: IVPB, ONCE, Dosing Weight 70.455, kg, Start date: 05/23/14 8:53:00, Stop date: 05/23/14 8:53:00 Inactive 05/23/2014 [facility] Calcium Chloride 0.0014 MEQ/ML / Potassium Chloride 0.004 MEQ/ML / Sodium Chloride 0.103 MEQ/ML / Sodium Lactate 0.028 MEQ/ML Injectable Solution 1,000 mL, Rate: 25 ml/hr, Infuse over: 40 hr, Route: IV, Dosing Weight 70.455 kg, Total Volume: 1,000, Start date: 05/23/14 8:27:00, Duration: 30 day, Stop date: 06/22/14 8:26:00 Inactive 05/23/2014 [facility] Zantac 150 150 mg, PO, PRN, 0 Refill(s) Active 05/21/2014 [facility] citalopram 20 mg oral tablet 20 mg, 1 tab, PO, Daily, 30 tab, Substitution Allowed, TAB Active [facility] 08/16/2013 [facility] levothyroxine 25 mcg (0.025 mg) oral tablet 25 microgram, 1 tab, PO, Q630AM, 30 tab, Substitution Allowed, TAB Active [facility] 08/16/2013 [facility] omeprazole 40 mg oral delayed release capsule 40 mg, 1 cap, PO, Daily, 30 cap, Substitution Allowed, DRC Active [facility] 08/16/2013 [facility] Sodium Chloride 0.9% IV 1,000 mL 1,000 mL, Rate: 25 ml/hr, Infuse over: 40 hr, Route: IV, Dosing Weight 70.455 kg, Total Volume: 1,000, Start date: 08/16/13 11:25:00, Duration: 1 day, Stop date: 08/17/13 11:24:00 Inactive [facility] 08/16/2013 [facility] atorvastatin 10 mg, 1 tab, Route: PO, Drug form: TAB, Daily, Dosing Weight 70.455, kg, Start date: 08/16/13 9:00:00, Duration: 30 day, Stop date: 09/14/13 9:00:00(Same As: Lipitor) No Longer Active [facility] 08/16/2013 [facility] Protonix 40 mg, 1 tab, Route: PO, Drug form: ECTAB, Q12H, Start date: 08/15/13 21:00:00, Duration: 30 day, Stop date: 09/14/13 9:00:00Tablet should not be chewed or crushed. (Same as: Protonix) No Longer Active [facility] 08/16/2013 [facility] Levothroid 25 microgram, 1 tab, Route: PO, Drug form: TAB, Q630AM, Start date: 08/15/13 14:00:00, Duration: 30 day, Stop date: 09/14/13 6:30:00Take 1 hour before or 2 hours after meal; Enteral feeds may interefere with the absorption of this medication. (Same as:Levothroid) No Longer Active [facility] 08/15/2013 [facility] Celexa 20 mg, 1 tab, Route: PO, Drug form: TAB, Daily, Start date: 08/15/13 14:00:00, Duration: 30 day, Stop date: 09/14/13 9:00:00(Same As: Celexa) No Longer Active [facility] 08/15/2013 [facility] pneumococcal 23-valent vaccine 0.5 ml, Route: IM, Drug Form: INJ, Start date: 08/15/13 9:00:00, Stop date: 08/15/13 9:00:00 Inactive [facility] 08/15/2013 [facility] glucagon 1 mg, Route: IM, PRN, Dosing Weight 70.455, kg, PRN Blood Glucose Results, Start date: 08/15/13 8:46:00, Duration: 30 day, Stop date: 09/14/13 7:45:00 Inactive [facility] 08/15/2013 [facility] insulin aspart 2 unit, 0.02 mL, Route: SUB-Q, Drug form: SOLN, TID-Before Meals, Dosing Weight 70.455, kg, PRN Blood Glucose Results, Start date: 08/15/13 8:46:00, Duration: 30 day, Stop date: 09/14/13 8:45:00Roll in palms of hands gently; Do not shake vigorously. (Same as: NovoLog) "single patient use only" Stable for 28 days at room temperature. Expires in days from Date No Longer Active [facility] 08/15/2013 [facility] Dextrose 50% Syringe 25 mL, Route: IVP, Dosing Weight 70.455, kg, PRN, PRN Blood Glucose Results, Start date: 08/15/13 8:46:00, Duration: 30 day, Stop date: 09/14/13 7:45:00 Inactive [facility] 08/15/2013 [facility] glucagon 1 mg, Route: IM, Drug form: PDR/INJ, PRN, PRN Blood Glucose Results, Start date: 08/15/13 2:10:00, Duration: 30 day, Stop date: 09/14/13 1:09:00 No Longer Active [facility] 08/15/2013 [facility] Dextrose 50% in Water IV 50 mL, Route: IVP, Start date: 08/15/13 2:10:00, Duration: 30 day, Stop date: 09/14/13 1:09:00, PRN Blood Glucose Results No Longer Active [facility] 08/15/2013 [facility] NovoLog FlexPen 6 unit, 0.06 mL, Route: SUB-Q, Drug form: SOLN, Sliding Scale, PRN Blood Glucose Results, Start date: 08/15/13 2:10:00, Duration: 30 day, Stop date: 09/14/13 1:09:00Roll in palms of hands gently; Do not shake vigorously. (Same as: NovoLog) "single patient use only" Stable for 28 days at room temperature. Expires in days from Date Inactive [facility] 08/15/2013 [facility] NovoLog FlexPen 4 unit, 0.04 mL, Route: SUB-Q, Drug form: SOLN, Sliding Scale, PRN Blood Glucose Results, Start date: 08/15/13 2:09:00, Duration: 30 day, Stop date: 09/14/13 1:08:00Roll in palms of hands gently; Do not shake vigorously. (Same as: NovoLog) "single patient use only" Stable for 28 days at room temperature. Expires in days from Date Inactive [facility] 08/15/2013 [facility] NS 1,000 mL 1,000 mL, Rate: 125 ml/hr, Infuse over: 8 hr, Route: IV, Dosing Weight 70.455 kg, Total Volume: 1,000, Start date: 08/14/13 21:05:00, Duration: 30 day, Stop date: 09/13/13 21:04:00 No Longer Active [facility] 08/15/2013 [facility] Tylenol 650 mg, 2 tab, Route: PO, Drug form: TAB, Q4H, Dosing Weight 70.455, kg, PRN Pain, Start date: 08/14/13 21:05:00, Duration: 30 day, Stop date: 09/13/13 21:04:00Do not exceed 4 gm/day. (Same as: Tylenol) No Longer Active [facility] 08/15/2013 [facility] Protonix 40 mg, Route: IVP, Drug form: INJ, Q12H, Start date: 08/14/13 21:00:00, Duration: 30 day, Stop date: 09/13/13 9:00:00For IV push reconstitute with 10 ml 0.9% sodium chloride and push over 2 minutes. (Same as: Protonix) No Longer Active [facility] 08/15/2013 [facility] SoluMedrol 40 mg, 1 mL, Route: IV, Drug form: INJ, ONCE, Dosing Weight 70.455, kg, Priority: STAT, Start date: 08/14/13 19:31:00, Stop date: 08/14/13 19:31:00(Same as:Solu-Medrol, A-Methapred) Inactive [facility] 08/15/2013 [facility] Benadryl 50 mg, 1 mL, Route: IV, Drug form: INJ, ONCE, Dosing Weight 70.455, kg, Priority: STAT, Start date: 08/14/13 19:31:00, Stop date: 08/14/13 19:31:00(Same as: Benadryl) Inactive [facility] 08/15/2013 [facility] atorvastatin 10 mg oral tablet 10 mg, 1 tab, PO, Daily, 30 tab, Substitution Allowed, TAB Active [facility] 08/14/2013 [facility] metFORmin 1,000 mg, PO, Daily, Substitution Allowed No Longer Active 08/14/2013 [facility] nitroglycerin 0.4 mg sublingual tablet 0.4 mg, 1 tab, Route: SL, Drug form: TAB, Q5Min, PRN Chest Pain, Start date: 08/14/13 16:04:00, Duration: 30 day, Stop date: 09/13/13 15:03:00(Same as:Nitroquick, Nitrostat) "Do Not Crush" Sublingual tablet No Longer Active [facility] 08/14/2013 [facility] atropine 0.5 mg, 5 mL, Route: IVP, Drug form: INJ, PRN, PRN Bradycardia, Start date: 08/14/13 16:03:00, Duration: 30 day, Stop date: 09/13/13 15:02:00 No Longer Active [facility] 08/14/2013 [facility] Zofran 4 mg, 2 mL, Route: IVP, Drug form: INJ, Q6H, PRN Nausea & Vomiting, Start date: 08/14/13 16:03:00, Duration: 30 day, Stop date: 09/13/13 16:02:00(Same as: Zofran) No Longer Active [facility] 08/14/2013 [facility] pneumococcal 23-valent vaccine 0.5 ml, Route: IM, Drug Form: INJ, ONCE, Start date: 12/19/06 7:20:00, Stop date: 12/19/06 7:20:00LOT#: Mfg: (Same as: Pneumovax 23) Inactive [facility] 12/19/2006 [facility] Levemir 20-25 units Subcutaneous Active 100 UNIT/ML Subcutaneous twice a day [facility] Tamiflu 1 capsule Orally Active 75 MG Orally Twice a day [facility] Losartan Potassium 1 tablet Orally Active 25 MG Orally Once a day [facility] Guaifenesin 1 tablet as needed Orally Active 400 MG Orally every 4 hrs [facility] Benzonatate 1 capsule as needed Orally Active 100 MG Orally Three times a day as needed [facility] Magnesium not defined NA Active [facility] Vitamin D3 not defined NA Active [facility] Cyclobenzaprine HCl 1 tablet as needed Orally Active 10 MG Orally Three times a day [facility] Levemir 20-25 units Subcutaneous Active 100 UNIT/ML Subcutaneous twice a day [facility] Tri-Chlor not defined NA Active [facility] Losartan Potassium 1 tablet Orally Active 25 MG Orally Once a day [facility] Tramadol HCl 1 tablet as needed Orally Active 50 MG Orally every 8 hrs [facility] Tramadol HCl 1 tablet as needed Orally Active 50 MG Orally every 8 hrs [facility] Allergies, Adverse Reactions, Alerts Substance Category Reaction Severity Reaction type Status Date Reported Comments Source pnc Adverse Reaction rash Adverse Reaction Active 10/04/2018 Mauricio Johns penicillin Assertion Drug allergy Active [facility] Immunizations Immunization Date Given Site Status Last Updated Comments Source pneumococcal 23-valent vaccine 08/15/2013 completed Barbara [facility] pneumococcal 23-valent vaccine 08/15/2013 Right deltoid completed Barbara [facility] pneumococcal 23-valent vaccine 12/19/2006 completed Javier [facility] pneumococcal 23-valent vaccine 12/19/2006 Left Arm completed [facility] Results Order Name Results Value Reference Range Date Interpretation Comments Source Brain wo contrast CT Brain wo contrast CT Clinical Indication: Headache and fatigue. Comparison: CT head 03/01/2008. TECHNIQUE: CT images were obtained from the foramen magnum to the vertex without the use of intravenous contrast on a multidetector CT. Coronal and sagittal reconstructions were obtained. CT imaging performed at this location utilizes radiation dose optimization techniques which include one or more of the following: -Automated exposure control -Adjustment of the mA and/or kV according to patient size -Use of iterative reconstruction technique CT Radiation Dose DLP 982.82 mGy-cm FINDINGS: BRAIN PARENCHYMA: Atherosclerotic calcifications are present within the carotid siphons and distal vertebral arteries. Nonspecific basal ganglia calcifications are again seen. There is no mass effect, midline shift or edema. There are no intra-axial or extra-axial fluid collections, intraventricular or intraparenchymal hemorrhage. The ramos-white differentiation is preserved without CT evidence of acute territorial infarction. VENTRICLES: There is no evidence of hydrocephalus. The basilar cisterns are within normal limits. ORBITS, MASTOIDS AND PARANASAL SINUSES: Mild bilateral ethmoid sinus mucosal thickening is seen. The visualized orbits are unremarkable. The mastoid air cells are clear. SKULL: There are no calvarial abnormalities seen. If there is further concern for intracranial pathology or acute stroke, MRI of the brain may be performed for complete assessment. IMPRESSION: No acute intracranial hemorrhage or mass effect. No CT evidence of acute territorial infarction. SL: KPATEL-M 08/08/2018 - - Read by: Jacek Mar MD Dictated Date/time: 08/09/18 00:22 Electronically Signed by: Jacek Mar MD 08/09/18 00:31 FINAL REPORT [facility] Chest 2 views DX Chest 2 views DX Clinical Indication: - body aches cp. Comparison: None. TECHNIQUE: PA and lateral chest radiographs were performed. (2 views) FINDINGS: LUNGS: Normal lung volumes. No interstitial or airspace opacities. No pleural effusions or pneumothorax. HEART AND MEDIASTINUM: The heart size is normal. The pulmonary vasculature is normal. The mediastinal contour is normal. The trachea is midline. OSSEOUS STRUCTURES: No acute abnormality seen. IMPRESSION: 1. No acute cardiopulmonary disease. SL: ATTILA 08/08/2018 - - Read by: Olu Gloria MD Dictated Date/time: 08/08/18 22:19 Electronically Signed by: Olu Gloria MD 08/08/18 22:20 FINAL REPORT [facility] CHEM PANEL B/C Ratio 17 6 - 25 11/22/2017 [facility] Globulin 3.9 g/dL 2.7 - 4.2 11/22/2017 [facility] CHEM PANEL A/G Ratio 0.8 0.7 - 1.6 11/22/2017 [facility] CHEM PANEL AGAP 8.9 meq/L 10.0 - 20.0 11/22/2017 [facility] CHEM PANEL eGFR 97 mL/min/1.73m2 11/22/2017 Result Comment: The eGFR is calculated using the [...] from the National Kidney Disease Education Program (NKDEP) which additionally recommends that when the eGFR is used in patients with extremes of body mass index for purposes of drug dosing, the eGFR should be multiplied by the estimated BMI. [facility] CHEM PANEL Glucose Lvl 193 mg/dL 70 - 99 11/22/2017 [facility]M PANEL BUN 10 mg/dL 7 - 22 11/22/2017 [facility] CHEM PANEL Calcium Lvl 8.3 mg/dL 8.5 - 10.5 11/22/2017 [facility] CHEM PANEL Albumin Lvl 3.3 g/dL 3.5 - 5.0 11/22/2017 [facility]M PANEL Alk Phos 79 unit/L 39 - 136 11/22/2017 [facility] CHEM PANEL AST 10 unit/L 0 - 37 11/22/2017 [facility]M PANEL ALT 20 unit/L 0 - 65 11/22/2017 [facility] PANEL Chloride Lvl 104 meq/L 95 - 109 11/22/2017 [facility] CHEM PANEL CO2 29 meq/L 24 - 32 11/22/2017 [facility] CHEM PANEL Sodium Lvl 138 meq/L 135 - 145 11/22/2017 [facility] CHEM PANEL Potassium Lvl 3.9 meq/L 3.5 - 5.1 11/22/2017 [facility] CHEM PANEL Total Protein 7.2 g/dL 6.4 - 8.4 11/22/2017 [facility] CHEM PANEL Creatinine Lvl 0.59 mg/dL 0.50 - 1.40 11/22/2017 [facility] CHEM PANEL Bili Total 0.5 mg/dL 0.2 - 1.3 11/22/2017 [facility] HEMATOLOGY Lymphocytes # 2.7 K/CMM 1.0 - 5.5 11/22/2017 [facility] HEMATOLOGY Segs-Bands # 4.2 K/CMM 1.5 - 8.1 11/22/2017 [facility] HEMATOLOGY Eosinophils # 0.1 K/CMM 0.0 - 0.5 11/22/2017 [facility] HEMATOLOGY Monocytes # 0.9 K/CMM 0.0 - 0.8 11/22/2017 [facility] HEMATOLOGY Monocytes 11.5 % 2.0 - 12.0 11/22/2017 [facility] HEMATOLOGY Basophils 0.6 % 0.0 - 1.0 11/22/2017 [facility] HEMATOLOGY Eosinophils 1.0 % 0.0 - 4.0 11/22/2017 [facility] HEMATOLOGY Lymphocytes 33.9 % 20.0 - 40.0 11/22/2017 [facility] HEMATOLOGY Segs 53.0 % 45.0 - 75.0 11/22/2017 [facility] HEMATOLOGY MPV 8.6 fL 7.4 - 10.4 11/22/2017 [facility] HEMATOLOGY Platelet 242 K/CMM 133 - 450 11/22/2017 [facility] RDW 12.5 % 11.5 - 14.5 11/22/2017 [facility] HEMATOLOGY MCHC 35.3 g/dL 32.0 - 36.0 11/22/2017 [facility] MCH 30.8 pg 27.0 - 31.0 11/22/2017 [facility] HEMATOLOGY Hct 35.4 % 36.0 - 48.0 11/22/2017 [facility] Hgb 12.5 g/dL 12.0 - 16.0 11/22/2017 [facility] HEMATOLOGY MCV 87.2 fL 80.0 - 98.0 11/22/2017 [facility] HEMATOLOGY WBC 7.8 K/CMM 3.7 - 10.4 11/22/2017 [facility] HEMATOLOGY RBC 4.06 M/CMM 4.20 - 5.40 11/22/2017 [facility] SPECIAL CHEMISTRY Hgb A1C 10.3 % <=5.6 % 11/22/2017 [facility] CARDIAC ENZYMES Total CK 129 unit/L 12 - 191 11/17/2017 [facility] CARDIAC ENZYMES CK MB null 0.5 - 3.6 11/17/2017 [facility] CARDIAC ENZYMES Troponin-I null 0.00 - 0.40 11/17/2017 [facility] CARDIAC ENZYMES CK MB Index null 0.0 - 2.5 11/17/2017 [facility] CHEM PANEL Lipase Lvl 72 unit/L 73 - 393 11/17/2017 [facility] CHEM PANEL eGFR 89 mL/min/1.73m2 11/17/2017 Result Comment: The eGFR is calculated using the [...] from the National Kidney Disease Education Program (NKDEP) which additionally recommends that when the eGFR is used in patients with extremes of body mass index for purposes of drug dosing, the eGFR should be multiplied by the estimated BMI. [facility] CHEM PANEL Albumin Lvl 3.5 g/dL 3.5 - 5.0 11/17/2017 [facility] CHEM PANEL ALT 30 unit/L 0 - 65 11/17/2017 [facility] CHEM PANEL AST 17 unit/L 0 - 37 11/17/2017 [facility] CHEM PANEL Alk Phos 80 unit/L 39 - 136 11/17/2017 [facility] CHEM PANEL Bili Total 0.8 mg/dL 0.2 - 1.3 11/17/2017 [facility] CHEM PANEL AGAP 12.1 meq/L 10.0 - 20.0 11/17/2017 [facility] CHEM PANEL B/C Ratio 18 6 - 25 11/17/2017 [facility]M PANEL Globulin 3.8 g/dL 2.7 - 4.2 11/17/2017 [facility] CHEM PANEL A/G Ratio 0.9 0.7 - 1.6 11/17/2017 [facility] CHEM PANEL CO2 26 meq/L 24 - 32 11/17/2017 [facility] CHEM PANEL Calcium Lvl 8.2 mg/dL 8.5 - 10.5 11/17/2017 [facility] CHEM PANEL Total Protein 7.3 g/dL 6.4 - 8.4 11/17/2017 [facility]M PANEL Sodium Lvl 132 meq/L 135 - 145 11/17/2017 [facility]M PANEL Glucose Lvl 282 mg/dL 70 - 99 11/17/2017 [facility] CHEM PANEL Creatinine Lvl 0.72 mg/dL 0.50 - 1.40 11/17/2017 [facility] CHEM PANEL BUN 13 mg/dL 7 - 22 11/17/2017 [facility]M PANEL Potassium Lvl 4.1 meq/L 3.5 - 5.1 11/17/2017 [facility]M PANEL Chloride Lvl 98 meq/L 95 - 109 11/17/2017 [facility] HEMATOLOGY Platelet 177 K/CMM 133 - 450 11/17/2017 [facility] HEMATOLOGY RDW 12.6 % 11.5 - 14.5 11/17/2017 [facility] HEMATOLOGY MPV 9.5 fL 7.4 - 10.4 11/17/2017 [facility] HEMATOLOGY Hct 37.0 % 36.0 - 48.0 11/17/2017 [facility] HEMATOLOGY MCHC 35.2 g/dL 32.0 - 36.0 11/17/2017 [facility] HEMATOLOGY MCH 30.6 pg 27.0 - 31.0 11/17/2017 [facility] HEMATOLOGY MCV 87.0 fL 80.0 - 98.0 11/17/2017 [facility] HEMATOLOGY WBC 7.4 K/CMM 3.7 - 10.4 11/17/2017 [facility] HEMATOLOGY Hgb 13.0 g/dL 12.0 - 16.0 11/17/2017 [facility] HEMATOLOGY RBC 4.25 M/CMM 4.20 - 5.40 11/17/2017 [facility] HEMATOLOGY Lymphocytes 13.2 % 20.0 - 40.0 11/17/2017 [facility] HEMATOLOGY Eosinophils 0.1 % 0.0 - 4.0 11/17/2017 [facility] HEMATOLOGY Monocytes 13.7 % 2.0 - 12.0 11/17/2017 [facility] HEMATOLOGY Monocytes # 1.0 K/CMM 0.0 - 0.8 11/17/2017 [facility] HEMATOLOGY Segs-Bands # 5.4 K/CMM 1.5 - 8.1 11/17/2017 [facility] HEMATOLOGY Basophils 0.4 % 0.0 - 1.0 11/17/2017 [facility] HEMATOLOGY Lymphocytes # 1.0 K/CMM 1.0 - 5.5 11/17/2017 [facility] HEMATOLOGY Segs 72.6 % 45.0 - 75.0 11/17/2017 [facility] URINE AND STOOL UA Urobilinogen <=1.0 mg/dL 0.1 - 1.0 11/17/2017 [facility] URINE AND STOOL UA Glucose 500 mg/dL Negative mg/dL 11/17/2017 [facility] URINE AND STOOL UA Ketones Trace mg/dL Negative mg/dL 11/17/2017 [facility] URINE AND STOOL UA Nitrite Positive *ABN* (11/17/17 2:55 AM) Negative 11/17/2017 [facility] URINE AND STOOL UA Blood Small *ABN* (11/17/17 2:55 AM) Negative 11/17/2017 [facility] URINE AND STOOL UA Bili Negative *NA* (11/17/17 2:55 AM) Negative 11/17/2017 [facility] URINE AND STOOL UA Color Yellow *NA* (11/17/17 2:55 AM) Yellow 11/17/2017 [facility] URINE AND STOOL UA Protein Negative mg/dL Negative mg/dL 11/17/2017 [facility] URINE AND STOOL UA pH 5.0 5.0 - 8.0 11/17/2017 [facility] URINE AND STOOL UA Spec Grav 1.015 <=1.030 11/17/2017 [facility] URINE AND STOOL UA Turbidity Clear (11/17/17 2:55 AM) Clear 11/17/2017 [facility] URINE AND STOOL UA Bacteria Moderate /HPF None Seen /HPF 11/17/2017 [facility] URINE AND STOOL UA RBC 2 /HPF 0 - 2 11/17/2017 [facility] URINE AND STOOL UA Sq Epi Occasional /LPF Few /LPF 11/17/2017 [facility] URINE AND STOOL UA Leuk Est Negative (11/17/17 2:55 AM) Negative 11/17/2017 [facility] URINE AND STOOL UA WBC 4 /HPF 0 - 5 11/17/2017 [facility] VIRAL - SEROLOGY Influ A Negative (11/17/17 2:55 AM) Negative 11/17/2017 [facility] VIRAL - SEROLOGY Influ B Negative (11/17/17 2:55 AM) Negative 11/17/2017 [facility] Chest 1view DX Chest 1view DX EXAM: Chest x-ray one view (frontal) HISTORY: - weakness. COMPARISON: 10/14/2015 FINDINGS: Mediastinum: The cardiomediastinal contours are unremarkable. Lungs and pleura: No focal consolidation, pleural effusion or pneumothorax. The pulmonary vascularity is normal. The right hemidiaphragm is mildly elevated, nonspecific. No acute osseous displaced abnormality is noted. IMPRESSION: No radiographic evidence of an acute cardiopulmonary process. SL: CURT 11/17/2017 - - Read by: Cristhian Ball MD Dictated Date/time: 11/17/17 03:21 Electronically Signed by: Cristhian Ball MD 11/17/17 03:23 FINAL REPORT [facility] URINE AND STOOL UA Protein Negative mg/dL Negative mg/dL 06/22/2017 [facility] URINE AND STOOL UA Glucose 500 mg/dL Negative mg/dL 06/22/2017 [facility] URINE AND STOOL UA Blood Small *ABN* (06/22/17 6:11 PM) Negative 06/22/2017 [facility] URINE AND STOOL UA Bili Negative *NA* (06/22/17 6:11 PM) Negative 06/22/2017 [facility] URINE AND STOOL UA Ketones Negative mg/dL Negative mg/dL 06/22/2017 [facility] URINE AND STOOL UA RBC 2 /HPF 0 - 2 06/22/2017 [facility] URINE AND STOOL UA WBC 5 /HPF 0 - 5 06/22/2017 [facility] URINE AND STOOL UA Sq Epi Occasional /LPF Few /LPF 06/22/2017 [facility] URINE AND STOOL UA Bacteria Many /HPF None Seen /HPF 06/22/2017 [facility] URINE AND STOOL UA Color Ltyellow 06/22/2017 [facility] URINE AND STOOL UA Leuk Est Trace *ABN* (06/22/17 6:11 PM) Negative 06/22/2017 [facility] URINE AND STOOL UA Nitrite Positive *ABN* (06/22/17 6:11 PM) Negative 06/22/2017 [facility] URINE AND STOOL UA Urobilinogen <=1.0 mg/dL 0.1 - 1.0 06/22/2017 [facility] URINE AND STOOL UA Spec Grav 1.009 <=1.030 06/22/2017 [facility] URINE AND STOOL UA Turbidity Clear (06/22/17 6:11 PM) Clear 06/22/2017 [facility] URINE AND STOOL UA pH 5.0 5.0 - 8.0 06/22/2017 [facility] Spine lumbar 2 or 3 views DX Spine lumbar 2 or 3 views DX Patient Name: NIKOLAY MENG : 1955; Age: 61 years Female MR: [id number] Study: Spine lumbar 2 or 3 views DX 06/22/2017 4:26 PM CDT CLINICAL INDICATION: Pain, Lumbar region - r/o fx COMPARISON: None FINDINGS: Views and laterality: Lumbar spine 3 views There are 5 nonrib-bearing lumbar type vertebral bodies. The lumbar vertebral bodies are of normal height without acute fracture. Mild grade 1 anterolisthesis of L3 on L4. Mild disc space narrowing with posterior endplate spurring at L4-L5 and L5-S1. Suspect prior laminectomies at L4-L5 and L5-S1. Cholecystectomy clips. Scattered vascular calcifications. Diffuse osseous demineralization. IMPRESSION: No acute lumbar spine abnormalities. SL: [id number] 06/22/2017 - - Read by: Willy Au MD Dictated Date/time: 06/22/17 17:04 Electronically Signed by: Willy Au MD 06/22/17 17:07 FINAL REPORT [facility] CHEM PANEL Ketone Quantitative 0.16 mmol/L <=0.27 mmol/L 02/07/2016 [facility] CHEM PANEL B/C Ratio 22 6 - 25 02/07/2016 [facility] CHEM PANEL AGAP 12.9 meq/L 10.0 - 20.0 02/07/2016 [facility] CHEM PANEL A/G Ratio 1.1 0.7 - 1.6 02/07/2016 [facility] CHEM PANEL Globulin 3.4 g/dL 2.0 - 4.0 02/07/2016 [facility] CHEM PANEL eGFR 94 mL/min/1.73m2 02/07/2016 Result Comment: The eGFR is calculated using the [...] from the National Kidney Disease Education Program (NKDEP) which additionally recommends that when the eGFR is used in patients with extremes of body mass index for purposes of drug dosing, the eGFR should be multiplied by the estimated BMI. [facility] CHEM PANEL ALT 28 unit/L 0 - 65 02/07/2016 [facility] CHEM PANEL Albumin Lvl 3.9 g/dL 3.5 - 5.0 02/07/2016 [facility] CHEM PANEL Total Protein 7.3 g/dL 6.4 - 8.4 02/07/2016 [facility] CHEM PANEL AST 8 unit/L 0 - 37 02/07/2016 [facility] CHEM PANEL Alk Phos 83 unit/L 39 - 136 02/07/2016 [facility] CHEM PANEL Bili Total 0.8 mg/dL 0.2 - 1.3 02/07/2016 [facility] CHEM PANEL Chloride Lvl 99 meq/L 95 - 109 02/07/2016 [facility] CHEM PANEL Potassium Lvl 3.9 meq/L 3.5 - 5.1 02/07/2016 [facility] CHEM PANEL Calcium Lvl 8.9 mg/dL 8.5 - 10.5 02/07/2016 [facility] CHEM PANEL CO2 27 meq/L 24 - 32 02/07/2016 [facility] CHEM PANEL Sodium Lvl 135 meq/L 135 - 145 02/07/2016 [facility] CHEM PANEL Glucose Lvl 210 mg/dL 70 - 99 02/07/2016 [facility] CHEM PANEL Creatinine Lvl 0.68 mg/dL 0.50 - 1.40 02/07/2016 [facility] CHEM PANEL BUN 15 mg/dL 7 - 22 02/07/2016 [facility] HEMATOLOGY Monocytes 7.9 % 2.0 - 12.0 02/07/2016 [facility] HEMATOLOGY Eosinophils # 0.1 K/CMM 0.0 - 0.5 02/07/2016 [facility] HEMATOLOGY Monocytes # 0.8 K/CMM 0.0 - 0.8 02/07/2016 [facility] HEMATOLOGY Basophils # 0.1 K/CMM 0.0 - 0.2 02/07/2016 [facility] HEMATOLOGY Basophils 0.5 % 0.0 - 1.0 02/07/2016 [facility] HEMATOLOGY Segs-Bands # 6.2 K/CMM 1.5 - 8.1 02/07/2016 [facility] HEMATOLOGY Eosinophils 1.0 % 0.0 - 4.0 02/07/2016 [facility] HEMATOLOGY Segs 61.3 % 45.0 - 75.0 02/07/2016 [facility] Lymphocytes # 3.0 K/CMM 1.0 - 5.5 02/07/2016 [facility] Lymphocytes 29.3 % 20.0 - 40.0 02/07/2016 [facility] MPV 9.5 fL 7.4 - 10.4 02/07/2016 [facility] Platelet 245 K/CMM 133 - 450 02/07/2016 [facility] RBC 4.78 M/CMM 4.20 - 5.40 02/07/2016 [facility] WBC 10.1 K/CMM 3.7 - 10.4 02/07/2016 [facility] Hgb 14.3 g/dL 12.0 - 16.0 02/07/2016 [facility] Hct 41.9 % 36.0 - 48.0 02/07/2016 [facility] MCH 30.0 pg 27.0 - 31.0 02/07/2016 [facility] MCV 87.6 fL 80.0 - 98.0 02/07/2016 [facility] RDW 13.1 % 11.5 - 14.5 02/07/2016 [facility] MCHC 34.2 g/dL 32.0 - 36.0 02/07/2016 [facility] URINE AND STOOL UA Urobilinogen <=1.0 mg/dL 0.1 - 1.0 02/07/2016 [facility] URINE AND STOOL UA Color Ltyellow 02/07/2016 [facility] URINE AND STOOL UA RBC null 0 - 2 02/07/2016 [facility] URINE AND STOOL UA Leuk Est Negative (02/07/16 12:07 PM) Negative 02/07/2016 [facility] URINE AND STOOL UA Sq Epi Occasional /LPF Few /LPF 02/07/2016 [facility] URINE AND STOOL UA Nitrite Negative (02/07/16 12:07 PM) Negative 02/07/2016 [facility] URINE AND STOOL UA Bili Negative *NA* (02/07/16 12:07 PM) Negative 02/07/2016 [facility] URINE AND STOOL UA Blood Small *ABN* (02/07/16 12:07 PM) Negative 02/07/2016 [facility] URINE AND STOOL UA Glucose Negative mg/dL Negative mg/dL 02/07/2016 [facility] URINE AND STOOL UA Ketones Negative mg/dL Negative mg/dL 02/07/2016 [facility] URINE AND STOOL UA Protein Negative mg/dL Negative mg/dL 02/07/2016 [facility] URINE AND STOOL UA pH 6.0 5.0 - 8.0 02/07/2016 [facility] URINE AND STOOL UA Turbidity Clear (02/07/16 12:07 PM) Clear 02/07/2016 [facility] URINE AND STOOL UA Spec Grav 1.004 <=1.030 02/07/2016 [facility] Renal Stone CT Renal Stone CT CT ABDOMEN PELVIS WITHOUT CONTRAST (RENAL STONE): HISTORY: Back pain for 3 days. TECHNIQUE: Multislice axial acquisition of the abdomen and pelvis targeted to the urinary tract was done without contrast. Sagittal and coronal reconstructions were also done. FINDINGS: There is no evidence of ureteral calculus or hydronephrosis. No other significant renal abnormalities are seen. The urinary bladder is unremarkable. There is moderate diverticulosis in the sigmoid colon without evidence of diverticulitis. The appendix is normal. The uterus is not visualized. The liver, spleen, pancreas and adrenal glands show no significant abnormalities. The gallbladder is been removed. There is no evidence of biliary dilatation. There is no intra-abdominal mass or free fluid. There are no significant retroperitoneal abnormalities. There is no acute osseous abnormality. Degenerative changes in the lower lumbar spine are noted. There is no significant change compared to the previous CT on 08/14/2013. IMPRESSION: 1. No evidence of ureteral calculus or hydronephrosis. 2. No other acute CT abnormalities in the abdomen or pelvis. [id number] 02/07/2016 - - Read by: Rolando Brown MD Dictated Date/time: 02/07/16 12:57 Electronically Signed by: Rolando Brown MD 02/07/16 13:02 FINAL REPORT [facility] URINE AND STOOL UA Turbidity Clear (02/03/16 8:07 PM) Clear 02/04/2016 [facility] URINE AND STOOL UA Spec Grav 1.012 <=1.030 02/04/2016 [facility] URINE AND STOOL UA Sq Epi Occasional /LPF Few /LPF 02/04/2016 [facility] URINE AND STOOL UA RBC 3 /HPF 0 - 2 02/04/2016 [facility] URINE AND STOOL UA Blood Small *ABN* (02/03/16 8:07 PM) Negative 02/04/2016 [facility] URINE AND STOOL UA Mucus Few /LPF None Seen /LPF 02/04/2016 [facility] URINE AND STOOL UA WBC 3 /HPF 0 - 5 02/04/2016 [facility] URINE AND STOOL UA Nitrite Negative (02/03/16 8:07 PM) Negative 02/04/2016 [facility] URINE AND STOOL UA Glucose Negative mg/dL Negative mg/dL 02/04/2016 [facility] URINE AND STOOL UA Leuk Est Negative (02/03/16 8:07 PM) Negative 02/04/2016 [facility] URINE AND STOOL UA Bili Negative *NA* (02/03/16 8:07 PM) Negative 02/04/2016 [facility] URINE AND STOOL UA Ketones Negative mg/dL Negative mg/dL 02/04/2016 [facility] URINE AND STOOL UA pH 5.0 5.0 - 8.0 02/04/2016 [facility] URINE AND STOOL UA Protein Negative mg/dL Negative mg/dL 02/04/2016 [facility] URINE AND STOOL UA Urobilinogen <=1.0 mg/dL 0.1 - 1.0 02/04/2016 [facility] URINE AND STOOL UA Color Ltyellow 02/04/2016 [facility] Spine lumbar 2 or 3 views DX Spine lumbar 2 or 3 views DX Spine lumbar 2 or 3 views DX COMPARISON: CT abdomen pelvis, 08/14/2013 CLINICAL HISTORY: Pain with radiculopathy; FINDINGS/IMPRESSION: 5 nonrib-bearing lumbar-type vertebra are visualized. Postsurgical changes related to laminectomy and paralumbar bony grafts are stable from previous CT of 08/14/2013. Minimal anterolisthesis of L3 relative to L4, unchanged. There is extensive generalized osteopenia. No evidence for compression fractures. Mild degenerative change Is present at the SI joints. Pelvic phleboliths. Surgical clips in the right upper abdomen suggest previous cholecystectomy. Mild atherosclerotic disease is present in the aorta anteriorly. SL: [id number] 02/03/2016 - - Read by: Gordon Polanco MD Dictated Date/time: 02/03/16 16:53 Electronically Signed by: Gordon Polanco MD 02/03/16 16:58 FINAL REPORT [facility] Digital Mammo Screening Osei MA Digital Mammo Screening Osei MA AMENDMENT: 12/15/2015 Erin Reddy M.D. The patient's prior mammograms dated 07/03/14 - 05/01/13 are made available and are compared to the most recent examination. There is no significant change in either breast, allowing for differences in technique/positioning. No mammographic evidence of malignancy. 1 year screening exam is recommended. Amended BI-RADS: 2 Benign letter sent: Comp Normal - DIGITAL MAMMO SCREENING OSEI MA BILATERAL DIGITAL SCREENING MAMMOGRAM WITH CAD: 11/19/2015 CLINICAL: Routine. Current study was evaluated with a Computer Aided Detection (CAD) system. Exam is read without the benefit of comparison films. Patient is unsure and/or cannot remember where and/or when her prior exam(s) was performed. There are scattered fibroglandular densities in both breasts. There are benign appearing calcifications in both breasts. There also are benign appearing densities in both breasts. Additionally there are benign appearing vascular calcifications in the right breast. No significant masses, calcifications, or other findings are seen in either breast. IMPRESSION: BENIGN There is no mammographic evidence of malignancy. A 1 year screening mammogram is recommended. 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 This aids in establishing benignity. The patient should make additional efforts to locate her prior exams. An addendum will be made if additional films are provided. Erin bowman/penrad:11/19/2015 13:52:48 Robotics Specialist: Ninfa Mnoteiro, [facility] This exam was dictated and interpreted by [id number] for [facility] [place]. letter sent: Bilateral Benign Mammogram BI-RADS: 2 Benign 11/19/2015 - - Read by: Erin Reddy MD Dictated Date/time: 12/15/15 14:54 Electronically Signed by: Erin Reddy MD 12/15/15 14:54 FINAL REPORT - - Read by: Erin Redyd MD Dictated Date/time: 11/19/15 13:52 Electronically Signed by: Erin Reddy MD 11/19/15 13:52 FINAL REPORT [facility] CARDIAC ENZYMES BNP 32 pg/mL <=100 pg/mL 10/14/2015 [facility] CHEM PANEL Globulin 3.7 g/dL 2.0 - 4.0 10/14/2015 [facility] CHEM PANEL A/G Ratio 0.9 0.7 - 1.6 10/14/2015 [facility] CHEM PANEL B/C Ratio 16 6 - 25 10/14/2015 [facility] CHEM PANEL AGAP 14.3 meq/L 10.0 - 20.0 10/14/2015 [facility] CHEM PANEL eGFR 93 mL/min/1.73m2 10/14/2015 Result Comment: The eGFR is calculated using the [...] from the National Kidney Disease Education Program (NKDEP) which additionally recommends that when the eGFR is used in patients with extremes of body mass index for purposes of drug dosing, the eGFR should be multiplied by the estimated BMI. [facility] CHEM PANEL Bili Total 0.6 mg/dL 0.2 - 1.3 10/14/2015 [facility] CHEM PANEL BUN 11 mg/dL 7 - 22 10/14/2015 [facility] CHEM PANEL Glucose Lvl 146 mg/dL 70 - 99 10/14/2015 [facility] CHEM PANEL Total Protein 7.2 g/dL 6.4 - 8.4 10/14/2015 [facility] CHEM PANEL AST 11 unit/L 0 - 37 10/14/2015 [facility] CHEM PANEL Alk Phos 88 unit/L 39 - 136 10/14/2015 [facility] CHEM PANEL Albumin Lvl 3.5 g/dL 3.5 - 5.0 10/14/2015 [facility] CHEM PANEL ALT 23 unit/L 0 - 65 10/14/2015 [facility] CHEM PANEL Calcium Lvl 8.5 mg/dL 8.5 - 10.5 10/14/2015 [facility] CHEM PANEL Creatinine Lvl 0.70 mg/dL 0.50 - 1.40 10/14/2015 [facility] CHEM PANEL CO2 23 meq/L 24 - 32 10/14/2015 [facility] CHEM PANEL Chloride Lvl 104 meq/L 95 - 109 10/14/2015 [facility] CHEM PANEL Sodium Lvl 138 meq/L 135 - 145 10/14/2015 [facility] CHEM PANEL Potassium Lvl 3.3 meq/L 3.5 - 5.1 10/14/2015 [facility] HEMATOLOGY Monocytes 8.7 % 2.0 - 12.0 10/14/2015 [facility] HEMATOLOGY Segs 72.0 % 45.0 - 75.0 10/14/2015 [facility] HEMATOLOGY Lymphocytes 16.4 % 20.0 - 40.0 10/14/2015 [facility] HEMATOLOGY Eosinophils 2.1 % 0.0 - 4.0 10/14/2015 [facility] HEMATOLOGY Basophils 0.8 % 0.0 - 1.0 10/14/2015 [facility] HEMATOLOGY Lymphocytes # 2.2 K/CMM 1.0 - 5.5 10/14/2015 [facility] HEMATOLOGY Monocytes # 1.2 K/CMM 0.0 - 0.8 10/14/2015 [facility] HEMATOLOGY Segs-Bands # 9.8 K/CMM 1.5 - 8.1 10/14/2015 [facility] HEMATOLOGY Eosinophils # 0.3 K/CMM 0.0 - 0.5 10/14/2015 [facility] HEMATOLOGY Basophils # 0.1 K/CMM 0.0 - 0.2 10/14/2015 [facility] HEMATOLOGY Platelet 198 K/CMM 133 - 450 10/14/2015 [facility] HEMATOLOGY RDW 12.5 % 11.5 - 14.5 10/14/2015 [facility] HEMATOLOGY MPV 9.5 fL 7.4 - 10.4 10/14/2015 [facility] HEMATOLOGY MCV 89.0 fL 80.0 - 98.0 10/14/2015 [facility] HEMATOLOGY Hct 39.2 % 36.0 - 48.0 10/14/2015 [facility] MCH 29.0 pg 27.0 - 31.0 10/14/2015 [facility] HEMATOLOGY MCHC 32.6 g/dL 32.0 - 36.0 10/14/2015 [facility] HEMATOLOGY Hgb 12.8 g/dL 12.0 - 16.0 10/14/2015 [facility] HEMATOLOGY RBC 4.41 M/CMM 4.20 - 5.40 10/14/2015 [facility] HEMATOLOGY WBC 13.6 K/CMM 3.7 - 10.4 10/14/2015 [facility] VIRAL - SEROLOGY Influ A Negative (10/14/15 2:08 AM) Negative 10/14/2015 [facility] VIRAL - SEROLOGY Influ B Negative (10/14/15 2:08 AM) Negative 10/14/2015 [facility] Chest 2 views DX Chest 2 views DX Chest 2 views, Oct 14, 2015 01:26:39 AM CLINICAL HISTORY: Chest pain ; upper back pain; coughing TECHNIQUE: Routine PA and lateral views of the chest were obtained. COMPARISON: July 2013 FINDINGS: Lungs are hyperinflated, but clear. No pleural effusion or pneumothorax is present. Cardiomediastinal silhouette is normal. Bones are unremarkable. IMPRESSION: No acute abnormality of chest. Emphysematous changes SL: 14 10/14/2015 - - Read by: Christy Randolph MD Dictated Date/time: 10/14/15 01:32 Electronically Signed by: Christy Randolph MD 10/14/15 01:33 FINAL REPORT [facility] CHEM PANEL eGFR 94 mL/min/1.73m2 05/21/2014 1Result Comment: The eGFR is calculated using the [...] from the National Kidney Disease Education Program (NKDEP) which additionally recommends that when the eGFR is used in patients with extremes of body mass index for purposes of drug dosing, the eGFR should be multiplied by the estimated BMI. [facility] CHEM PANEL Calcium Lvl 8.6 mg/dL 8.5 - 10.5 05/21/2014 [facility] CHEM PANEL Sodium Lvl 137 meq/L 135 - 145 05/21/2014 [facility] CHEM PANEL Potassium Lvl 3.6 meq/L 3.5 - 5.1 05/21/2014 [facility] CHEM PANEL CO2 25 meq/L 24 - 32 05/21/2014 [facility] CHEM PANEL Chloride Lvl 101 meq/L 95 - 109 05/21/2014 [facility] CHEM PANEL Glucose Lvl 264 mg/dL 70 - 99 05/21/2014 2Interpretive Data: Adult reference range values reflect the clinical guidelines of the [place] [employer]. [facility] CHEM PANEL BUN 13 mg/dL 7 - 22 05/21/2014 [facility] CHEM PANEL Creatinine Lvl 0.7 mg/dL 0.5 - 1.4 05/21/2014 [facility] CHEM PANEL AGAP 14.6 meq/L 10.0 - 20.0 05/21/2014 [facility] HEMATOLOGY Hct 38.3 % 36.0 - 48.0 05/21/2014 [facility] HEMATOLOGY Hgb 13.2 g/dL 12.0 - 16.0 05/21/2014 [facility] BEDSIDE GLUCOSE TESTING Glucose POC 254 mg/dL 70 - 99 08/17/2013 [place] 1Interpretive Data: Upper Reportable Limit: 200 mg/dL. [facility] GLUCOSE TESTING Gluc POC Comment 1 Notified RN/ 08/17/2013 [facility] CHEMISTRY Troponin-I null 0.00 - 0.40 08/17/2013 Normal [facility] CHEMISTRY Total CK 46 unit/L 12 - 191 08/17/2013 Normal [facility] BEDSIDE GLUCOSE TESTING Glucose POC 185 mg/dL 70 - 99 08/17/2013 [place] 2Interpretive Data: Upper Reportable Limit: 200 mg/dL. [facility] Chest 2 views Chest 2 views HISTORY: Abnormal chest sounds. Chest one view. Lungs are clear. Heart size normal. There is no pleural effusion or pneumothorax. IMPRESSION: No acute findings SL:13 08/17/2013 - - Read by: Ki Nathan Dictated Date/time: 08/17/13 10:14 Electronically Signed by: Ki Nathan MD 08/17/13 10:14 FINAL REPORT [facility] GLUCOSE TESTING Glucose POC 237 mg/dL 70 - 99 08/17/2013 [place] 3Interpretive Data: Upper Reportable Limit: 200 mg/dL. [facility] CHEMISTRY Calcium Lvl 8.0 mg/dL 8.5 - 10.5 08/16/2013 LOW [facility] CHEMISTRY AGAP 11.0 meq/L 10.0 - 20.0 08/16/2013 Normal [facility] CHEMISTRY Glucose Lvl 166 mg/dL 70 - 99 08/16/2013 [place] 6Interpretive Data: Adult reference range values reflect the clinical guidelines of the [place] [employer]. [facility] CHEMISTRY BUN 11 mg/dL 7 - 22 08/16/2013 Normal [facility] CHEMISTRY eGFR 95 mL/min/1.73m2 08/16/2013 4Result Comment: The eGFR is calculated using [...] from the National Kidney Disease Education Program (NKDEP) which additionally recommends that when the eGFR is used in patients with extremes of body mass index for purposes of drug dosing, the eGFR should be multiplied by the estimated BMI. [facility] CHEMISTRY CO2 29 meq/L 24 - 32 08/16/2013 Normal [facility] CHEMISTRY Creatinine Lvl 0.7 mg/dL 0.5 - 1.4 08/16/2013 Normal [facility] CHEMISTRY Sodium Lvl 144 meq/L 135 - 145 08/16/2013 Normal [facility] CHEMISTRY Potassium Lvl 4.0 meq/L 3.5 - 5.1 08/16/2013 Normal [facility] CHEMISTRY Chloride Lvl 108 meq/L 95 - 109 08/16/2013 Normal [facility] BEDSIDE GLUCOSE TESTING Gluc POC Comment 1 Notified RN/MD 08/15/2013 [facility] BEDSIDE GLUCOSE TESTING Gluc POC Comment 1 Notified RN/MD 08/15/2013 [facility] URINALYSIS UA Bacteria Occasional /HPF None Seen 08/15/2013 [facility] URINALYSIS UA WBC 1 /HPF 0 - 5 08/15/2013 Normal [facility] URINALYSIS UA RBC 1 /HPF 0 - 2 08/15/2013 Normal [facility] URINALYSIS UA Color Ltyellow 08/15/2013 [facility] URINALYSIS UA Nitrite Negative (08/14/2013 19:44:00) Negative 08/15/2013 Normal [facility] URINALYSIS UA Blood Negative (08/14/2013 19:44:00) Negative 08/15/2013 Normal [facility] URINALYSIS UA Bili Negative *NA* (08/14/2013 19:44:00) Negative 08/15/2013 [facility] URINALYSIS UA Ketones Negative mg/dL Negative 08/15/2013 [facility] URINALYSIS UA Sq Epi Occasional /LPF Few 08/15/2013 [facility] URINALYSIS UA Leuk Est Negative (08/14/2013 19:44:00) Negative 08/15/2013 Normal [facility] URINALYSIS UA Urobilinogen <=1.0 mg/dL 0.1 - 1.0 08/15/2013 [facility] URINALYSIS UA Protein Negative mg/dL Negative 08/15/2013 Normal [facility] URINALYSIS UA Glucose Negative mg/dL Negative 08/15/2013 [facility] URINALYSIS UA pH 5.0 5.0 - 8.0 08/15/2013 Normal [facility] URINALYSIS UA Spec Grav 1.031 <=1.030 08/15/2013 HI [facility] URINALYSIS UA Turbidity Clear (08/14/2013 19:44:00) Clear 08/15/2013 Normal [facility] CHEMISTRY CK-MB INDEX null 0.0 - 2.5 08/14/2013 Normal [facility] CHEMISTRY Troponin-I null 0.00 - 0.40 08/14/2013 Normal [facility] CHEMISTRY Total CK 65 unit/L 12 - 191 08/14/2013 Normal [facility] CHEMISTRY CK MB null 0.5 - 3.6 08/14/2013 Normal [facility] CHEMISTRY Lipase Lvl 100 unit/L 73 - 393 08/14/2013 Normal [facility] CHEMISTRY Amylase Lvl 23 unit/L 25 - 115 08/14/2013 LOW [facility] CHEMISTRY eGFR 95 mL/min/1.73m2 08/14/2013 5Result Comment: The eGFR is calculated using [...] from the National Kidney Disease Education Program (NKDEP) which additionally recommends that when the eGFR is used in patients with extremes of body mass index for purposes of drug dosing, the eGFR should be multiplied by the estimated BMI. [facility] CHEMISTRY ASPARTATE TRANSAMINASE 14 unit/L 0 - 37 08/14/2013 Normal [facility] CHEMISTRY AGAP 12.6 meq/L 10.0 - 20.0 08/14/2013 Normal [facility] CHEMISTRY Bili Total 0.9 mg/dL 0.2 - 1.3 08/14/2013 Normal [facility] CHEMISTRY ALANINE AMINOTRANSFERASE 40 unit/L 0 - 65 08/14/2013 Normal [facility] CHEMISTRY Alk Phos 101 unit/L 39 - 136 08/14/2013 Normal [facility] CHEMISTRY Total Protein 8.1 g/dL 6.4 - 8.4 08/14/2013 Normal [facility] CHEMISTRY Albumin Lvl 4.1 g/dL 3.5 - 5.0 08/14/2013 Normal [facility] CHEMISTRY Chloride Lvl 100 meq/L 95 - 109 08/14/2013 Normal [facility] CHEMISTRY Potassium Lvl 3.6 meq/L 3.5 - 5.1 08/14/2013 Normal [facility] CHEMISTRY CO2 26 meq/L 24 - 32 08/14/2013 Normal [facility] CHEMISTRY Sodium Lvl 135 meq/L 135 - 145 08/14/2013 Normal [facility] CHEMISTRY BUN 13 mg/dL 7 - 22 08/14/2013 Normal [facility] CHEMISTRY Creatinine Lvl 0.7 mg/dL 0.5 - 1.4 08/14/2013 Normal [facility] CHEMISTRY B/C Ratio 19 6 - 25 08/14/2013 Normal [facility] CHEMISTRY Calcium Lvl 9.3 mg/dL 8.5 - 10.5 08/14/2013 Normal [facility] CHEMISTRY Glucose Lvl 216 mg/dL 70 - 99 08/14/2013 [place] 7Interpretive Data: Adult reference range values reflect the clinical guidelines of the [place] [employer]. [facility] CHEMISTRY Globulin 4.0 g/dL 2.0 - 4.0 08/14/2013 Normal [facility] CHEMISTRY A/G Ratio 1.0 0.7 - 1.6 08/14/2013 Normal [facility] HEMATOLOGY Monocytes # 0.8 K/CMM 0.0 - 0.8 08/14/2013 Normal [facility] HEMATOLOGY Lymphocytes # 3.2 K/CMM 1.0 - 5.5 08/14/2013 Normal [facility] HEMATOLOGY Eosinophils # 0.1 K/CMM 0.0 - 0.5 08/14/2013 Normal [facility] HEMATOLOGY Basophils # 0.0 K/CMM 0.0 - 0.2 08/14/2013 Normal [facility] HEMATOLOGY Segs 59.0 % 45.0 - 75.0 08/14/2013 Normal [facility] HEMATOLOGY Basophils 0.4 % 0.0 - 1.0 08/14/2013 Normal [facility] Segs-Bands # 6.0 K/CMM 1.5 - 8.1 08/14/2013 Normal [facility] Lymphocytes 31.5 % 20.0 - 40.0 08/14/2013 Normal [facility] Eosinophils 1.3 % 0.0 - 4.0 08/14/2013 Normal [facility] Monocytes 7.8 % 2.0 - 12.0 08/14/2013 Normal [facility] D-Dimer 0.22 ug/mL FEU 08/14/2013 9Interpretive Data: In DIC, quantitative D-Dimer is generally greater than 0.66 ug/mL FEU. Values of quantitative D-Dimer less than 0.40 ug/mL FEU have been reported to be associated with a low probability of deep vein thrombosis/pulmonary embolism. This test alone should not be used to rule out DVT/PE. [facility] aPTT 29.0 s 22.9 - 35.8 08/14/2013 Normal 10Interpretive Data: Heparin Therapeutic Range: 57 - 92 Seconds [facility] PROTIME 12.6 s 12.0 - 14.7 08/14/2013 Normal [facility] INR 0.95 0.85 - 1.17 08/14/2013 Normal 8Interpretive Data: RECOMMENDED RANGES FOR PROTIME INR: 2.0-3.0 for most medical and surgical thromboembolic states. 2.5-3.5 for artificial heart valves and recurrent embolism. INR SHOULD BE USED ONLY FOR PATIENTS ON STABLE ANTICOAGULANT THERAPY. [facility] RBC X 10x6 4.50 M/CMM 4.20 - 5.40 08/14/2013 Normal [facility] Hct 40.9 % 36.0 - 48.0 08/14/2013 Normal [facility] Hgb 13.9 g/dL 12.0 - 16.0 08/14/2013 Normal [facility] WBC X 10x3 10.2 K/CMM 3.7 - 10.4 08/14/2013 Normal [facility] MPV 9.2 fL 7.4 - 10.4 08/14/2013 Normal [facility] Platelet 241 K/CMM 133 - 450 08/14/2013 Normal [facility] MCHC 33.9 g/dL 32.0 - 36.0 08/14/2013 Normal [facility] RDW 12.4 % 11.5 - 14.5 08/14/2013 Normal [facility] HEMATOLOGY MCH 30.8 pg 27.0 - 31.0 08/14/2013 Normal [facility] HEMATOLOGY MCV 90.9 fL 81.0 - 99.0 08/14/2013 Normal [facility] Abdomen/Pelvis w contrast CT Abdomen/Pelvis w contrast CT EXAM: CT abdomen and pelvis HISTORY: Abdominal pain, nausea and vomiting. TECHNIQUE: Axial images obtained through the abdomen and pelvis with IV and oral contrast. Sagittal and coronal reformations obtained. FINDINGS: Abdomen and pelvis: 1. No acute findings in the abdomen and pelvis. 2. Cholecystectomy. 3. Fatty liver. 4. Nonspecific bowel pattern, no bowel obstruction. Sigmoid diverticula without diverticulitis. Normal appendix. 5. Few tiny hypodense probable cysts in both kidneys. The adrenals, spleen and pancreas are unremarkable. No mass, bulky adenopathy or free fluid is seen. Hysterectomy. Bladder is unremarkable. The visualized lungs are clear. SL:13 08/14/2013 - - Read by: Kendall Vazquez Dictated Date/time: 08/15/13 09:53 Electronically Signed by: Kendlal Vazquez MD 08/15/13 10:16 FINAL REPORT [facility] CHEMISTRY Globulin 4.1 g/dL 2.0 - 4.0 02/20/2013 HI [facility] CHEMISTRY A/G Ratio 1.0 0.7 - 1.6 02/20/2013 Normal [facility] CHEMISTRY B/C Ratio 17 6 - 25 02/20/2013 Normal [facility] CHEMISTRY AGAP 12.0 meq/L 10.0 - 20.0 02/20/2013 Normal [facility] CHEMISTRY Sodium Lvl 139 meq/L 135 - 145 02/20/2013 Normal [facility] CHEMISTRY Potassium Lvl 4.0 meq/L 3.5 - 5.1 02/20/2013 Normal [facility] CHEMISTRY Chloride Lvl 102 meq/L 95 - 109 02/20/2013 Normal [facility] CHEMISTRY eGFR 95 mL/min/1.73m2 02/20/2013 NA 2Result Comment: The eGFR is calculated using the [...] from the National Kidney Disease Education Program (NKDEP) which additionally recommends that when the eGFR is used in patients with extremes of body mass index for purposes of drug dosing, the eGFR should be multiplied by the estimated BMI. [facility] CHEMISTRY Glucose Lvl 107 mg/dL 70 - 99 02/20/2013 [place] 3Interpretive Data: Adult reference range values reflect the clinical guidelines of the [place] [employer]. [facility] CHEMISTRY Creatinine Lvl 0.7 mg/dL 0.5 - 1.4 02/20/2013 Normal [facility] CHEMISTRY BUN 12 mg/dL 7 - 22 02/20/2013 Normal [facility] CHEMISTRY CO2 29 meq/L 24 - 32 02/20/2013 Normal [facility] CHEMISTRY Calcium Lvl 9.2 mg/dL 8.5 - 10.5 02/20/2013 Normal [facility] CHEMISTRY Albumin Lvl 4.3 g/dL 3.5 - 5.0 02/20/2013 Normal [facility] CHEMISTRY Total Protein 8.4 g/dL 6.4 - 8.4 02/20/2013 Normal [facility] CHEMISTRY Alk Phos 102 unit/L 39 - 136 02/20/2013 Normal [facility] CHEMISTRY ALT 37 unit/L 0 - 65 02/20/2013 Normal [facility] CHEMISTRY Bili Total 0.6 mg/dL 0.2 - 1.3 02/20/2013 Normal [facility] CHEMISTRY AST 17 unit/L 0 - 37 02/20/2013 Normal [facility] HEMATOLOGY Platelet 241 K/CMM 133 - 450 02/20/2013 Normal [facility] HEMATOLOGY MPV 9.0 fL 7.4 - 10.4 02/20/2013 Normal [facility] HEMATOLOGY RDW 12.4 % 11.5 - 14.5 02/20/2013 Normal [facility] HEMATOLOGY MCV 91.1 fL 81.0 - 99.0 02/20/2013 Normal [facility] HEMATOLOGY MCH 30.8 pg 27.0 - 31.0 02/20/2013 Normal [facility] HEMATOLOGY MCHC 33.9 g/dL 32.0 - 36.0 02/20/2013 Normal [facility] HEMATOLOGY Hct 42.0 % 36.0 - 48.0 02/20/2013 Normal [facility] HEMATOLOGY RBC 4.62 M/CMM 4.20 - 5.40 02/20/2013 Normal [facility] HEMATOLOGY Hgb 14.2 g/dL 12.0 - 16.0 02/20/2013 Normal [facility] HEMATOLOGY WBC 12.4 K/CMM 3.7 - 10.4 02/20/2013 [facility] HEMATOLOGY Basophils # 0.1 K/CMM 0.0 - 0.2 02/20/2013 Normal [facility] HEMATOLOGY Segs-Bands # 6.9 K/CMM 1.5 - 8.1 02/20/2013 Normal [facility] HEMATOLOGY Lymphocytes # 4.2 K/CMM 1.0 - 5.5 02/20/2013 Normal [facility] HEMATOLOGY Monocytes # 1.0 K/CMM 0.0 - 0.8 02/20/2013 [facility] HEMATOLOGY Eosinophils # 0.2 K/CMM 0.0 - 0.5 02/20/2013 Normal [facility] HEMATOLOGY Basophils 0.6 % 0.0 - 1.0 02/20/2013 Normal [facility] HEMATOLOGY Lymphocytes 34.0 % 20.0 - 40.0 02/20/2013 Normal [facility] HEMATOLOGY Monocytes 7.8 % 2.0 - 12.0 02/20/2013 Normal [facility] HEMATOLOGY Eosinophils 1.6 % 0.0 - 4.0 02/20/2013 Normal [facility] HEMATOLOGY Segs 56.0 % 45.0 - 75.0 02/20/2013 Normal [facility] URINALYSIS UA Urobilinogen <=1.0 mg/dL
*NA*
(02/20/2013 18:39:00) <sup> </sup> 0.1 - 1.0 02/20/2013 NA [facility] URINALYSIS UA Color Ltyellow 02/20/2013 NA [facility] URINALYSIS UA Sq Epi Occasional /LPF *NA* (02/20/2013 18:39:00) Few 02/20/2013 NA [facility] URINALYSIS UA Leuk Est Negative (02/20/2013 18:39:00) Negative 02/20/2013 Normal [facility] URINALYSIS UA Nitrite Negative (02/20/2013 18:39:00) Negative 02/20/2013 Normal [facility] URINALYSIS UA Blood Negative (02/20/2013 18:39:00) Negative 02/20/2013 Normal [facility] URINALYSIS UA pH 5.0 5.0 - 8.0 02/20/2013 Normal [facility] URINALYSIS UA Spec Grav 1.005 <=1.030 02/20/2013 Normal [facility] URINALYSIS UA Protein Negative mg/dL (02/20/2013 18:39:00) Negative 02/20/2013 Normal [facility] URINALYSIS UA Glucose Negative mg/dL *NA* (02/20/2013 18:39:00) Negative 02/20/2013 NA [facility] URINALYSIS UA Bili Negative *NA* (02/20/2013 18:39:00) Negative 02/20/2013 NA [facility] URINALYSIS UA Ketones Negative mg/dL *NA* (02/20/2013 18:39:00) Negative 02/20/2013 NA [facility] URINALYSIS UA Turbidity Clear (02/20/2013 18:39:00) Clear 02/20/2013 Normal [facility] URINALYSIS UA WBC null 0 - 5 02/20/2013 Normal [facility] URINALYSIS UA RBC null 0 - 2 02/20/2013 Normal [facility] BEDSIDE GLUCOSE TESTING Gluc POC Lifscn 159 mg/dL 70 - 99 02/20/2013 HI 1Interpretive Data: Upper Reportable Limit: 200 mg/dL. [facility] Vital Signs Vital Sign Value Date Comments Source Weight 152 10/04/2018 Enayet Rahim Height 64 10/04/2018 Enayet Rahim Temperature Oral (F) 97.7 F 10/04/2018 Enayet Rahim Diastolic (mm Hg) 74 10/04/2018 Enayet Rahim Systolic (mm Hg) 121 10/04/2018 Enayet Rahim Weight 153 09/11/2018 Enayet Rahim Height 64 09/11/2018 Enayet Rahim Temperature Oral (F) 98.3 F 09/11/2018 Enayet Rahim Diastolic (mm Hg) 69 09/11/2018 Enayet Rahim Systolic (mm Hg) 115 09/11/2018 Enayet Rahim Weight 151 08/14/2018 Enayet Rahim Height 64 08/14/2018 Enayet Rahim Temperature Oral (F) 97.3 F 08/14/2018 Enayet Rahim Diastolic (mm Hg) 77 08/14/2018 Enayet Rahim Systolic (mm Hg) 153 08/14/2018 Enayet Rahim Weight 150 08/10/2018 Enayet Rahim Height 64 08/10/2018 Enayet Rahim Temperature Oral (F) 98.5 F 08/10/2018 Enayet Rahim Diastolic (mm Hg) 82 08/10/2018 Enayet Rahim Systolic (mm Hg) 152 08/10/2018 Enayet Rahim Weight 155 11/25/2017 Enayet Rahim Height 64 11/25/2017 Enayet Rahim Temperature Oral (F) 99.0 F 11/25/2017 Enayet Rahim Diastolic (mm Hg) 88 11/25/2017 Enayet Rahim Systolic (mm Hg) 138 11/25/2017 Enayet Rahim Respitory Rate 16 11/22/2017 [facility] Systolic (mm Hg) 120 11/22/2017 [facility] Diastolic (mm Hg) 73 11/22/2017 [facility] Heart Rate 66 11/22/2017 [facility] Temperature Oral (F) 97.9 F 11/22/2017 [facility] Respitory Rate 18 11/22/2017 [facility] Heart Rate 66 11/22/2017 [facility] Systolic (mm Hg) 125 11/22/2017 [facility] Diastolic (mm Hg) 71 11/22/2017 [facility] Temperature Oral (F) 97.9 F 11/22/2017 [facility] Respitory Rate 18 11/22/2017 [facility] Heart Rate 65 11/22/2017 [facility] Systolic (mm Hg) 117 11/22/2017 [facility] Diastolic (mm Hg) 64 11/22/2017 [facility] Temperature Oral (F) 98.6 F 11/22/2017 [facility] Weight 67 11/22/2017 [facility] BMI Calculated 25.35 11/22/2017 [facility] Height 162.56 cm 11/22/2017 [facility] Weight 147 11/21/2017 Enayet Rahim Height 64 11/21/2017 Enayet Rahim Temperature Oral (F) 98.2 F 11/21/2017 Enayet Rahim Diastolic (mm Hg) 75 11/21/2017 Enayet Rahim Systolic (mm Hg) 128 11/21/2017 Enayet Rahim Heart Rate 94 11/17/2017 [facility] Respitory Rate 22 11/17/2017 [facility] Systolic (mm Hg) 107 11/17/2017 [facility] Diastolic (mm Hg) 45 11/17/2017 [facility] Respitory Rate 20 11/17/2017 [facility] Heart Rate 105 11/17/2017 [facility] Systolic (mm Hg) 124 11/17/2017 [facility] Diastolic (mm Hg) 48 11/17/2017 [facility] Weight 65.909 11/17/2017 [facility] Temperature Oral (F) 99.4 F 11/17/2017 [facility] Respitory Rate 20 11/17/2017 [facility] Heart Rate 109 11/17/2017 [facility] Systolic (mm Hg) 126 11/17/2017 [facility] Diastolic (mm Hg) 70 11/17/2017 [facility] BMI Calculated 24.94 11/17/2017 [facility] Height 162.56 cm 11/17/2017 [facility] Temperature Oral (F) 97.9 F 06/23/2017 [facility] Heart Rate 75 06/23/2017 [facility] Respitory Rate 18 06/23/2017 [facility] Systolic (mm Hg) 106 06/23/2017 [facility] Diastolic (mm Hg) 63 06/23/2017 [facility] Temperature Oral (F) 97.8 F 06/23/2017 [facility] Heart Rate 74 06/23/2017 [facility] Respitory Rate 18 06/23/2017 [facility] Systolic (mm Hg) 126 06/23/2017 [facility] Diastolic (mm Hg) 69 06/23/2017 [facility] BMI Calculated 26.49 06/22/2017 [facility] Height 162.56 cm 06/22/2017 [facility] Weight 70 06/22/2017 [facility] Temperature Oral (F) 97.8 F 06/22/2017 [facility] Systolic (mm Hg) 158 06/22/2017 [facility] Diastolic (mm Hg) 71 06/22/2017 [facility] Respitory Rate 18 06/22/2017 [facility] Heart Rate 105 06/22/2017 [facility] Weight 147 12/14/2016 Enayet Rahim Height 64 12/14/2016 Enayet Rahi Temperature Oral (F) 96.7 F 12/14/2016 Enayet Rahim Diastolic (mm Hg) 89 12/14/2016 Enayet Rahim Systolic (mm Hg) 150 12/14/2016 Enayet Rahim Heart Rate 87 02/07/2016 [facility] Temperature Oral (F) 98.1 F 02/07/2016 [facility] Respitory Rate 20 02/07/2016 [facility] Systolic (mm Hg) 136 02/07/2016 [facility] Diastolic (mm Hg) 70 02/07/2016 [facility] Height 162.56 cm 02/07/2016 [facility] BMI Calculated 26.49 02/07/2016 [facility] Weight 70 02/07/2016 [facility] Systolic (mm Hg) 139 02/07/2016 [facility] Diastolic (mm Hg) 74 02/07/2016 [facility] Respitory Rate 18 02/07/2016 [facility] Heart Rate 96 02/07/2016 [facility] Temperature Oral (F) 98.1 F 02/07/2016 [facility] Systolic (mm Hg) 149 02/04/2016 [facility] Diastolic (mm Hg) 79 02/04/2016 [facility] Respitory Rate 18 02/04/2016 [facility] Temperature Oral (F) 98.1 F 02/04/2016 [facility] Heart Rate 99 02/04/2016 [facility] BMI Calculated 25.8 02/03/2016 [facility] Weight 68.182 02/03/2016 [facility] Height 162.56 cm 02/03/2016 [facility] Systolic (mm Hg) 180 02/03/2016 [facility] Diastolic (mm Hg) 82 02/03/2016 [facility] Heart Rate 112 02/03/2016 [facility] Respitory Rate 20 02/03/2016 [facility] Systolic (mm Hg) 96 10/14/2015 [facility] Diastolic (mm Hg) 49 10/14/2015 [facility] Heart Rate 89 10/14/2015 [facility] Respitory Rate 20 10/14/2015 [facility] Temperature Oral (F) 98.4 F 10/14/2015 [facility] Systolic (mm Hg) 126 10/14/2015 [facility] Diastolic (mm Hg) 75 10/14/2015 [facility] Respitory Rate 20 10/14/2015 [facility] Weight 67.273 10/14/2015 [facility] BMI Calculated 26.27 10/14/2015 [facility] Height 160.02 cm 10/14/2015 [facility] Temperature Oral (F) 98.2 F 10/14/2015 [facility] Respitory Rate 24 10/14/2015 [facility] Heart Rate 112 10/14/2015 [facility] Systolic (mm Hg) 173 10/14/2015 [facility] Diastolic (mm Hg) 78 10/14/2015 [facility] Temperature Oral (F) 97.7 F 05/05/2015 [facility] Heart Rate 87 05/05/2015 [facility] Respitory Rate 18 05/05/2015 [facility] Systolic (mm Hg) 125 05/05/2015 [facility] Diastolic (mm Hg) 80 05/05/2015 [facility] Temperature Oral (F) 97.7 F 05/05/2015 [facility] Heart Rate 90 05/05/2015 [facility] Respitory Rate 18 05/05/2015 [facility] Diastolic (mm Hg) 77 05/05/2015 [facility] Systolic (mm Hg) 160 05/05/2015 [facility] Weight 67.727 05/05/2015 [facility] BMI Calculated 26.45 05/05/2015 [facility] Height 160.02 cm 05/05/2015 [facility] Heart Rate 91 05/05/2015 [facility] Temperature Oral (F) 97.7 F 05/05/2015 [facility] Systolic (mm Hg) 156 05/05/2015 [facility] Diastolic (mm Hg) 79 05/05/2015 [facility] Respitory Rate 18 05/05/2015 [facility] Diastolic (mm Hg) 54 05/23/2014 [facility] Systolic (mm Hg) 104 05/23/2014 [facility] Diastolic (mm Hg) 60 05/23/2014 [facility] Systolic (mm Hg) 110 05/23/2014 [facility] Respitory Rate 13 05/23/2014 [facility] Diastolic (mm Hg) 60 05/23/2014 [facility] Systolic (mm Hg) 111 05/23/2014 [facility] Respitory Rate 13 05/23/2014 [facility] Respitory Rate 11 05/23/2014 [facility] Heart Rate 72 05/23/2014 [facility] BMI Calculated 27.51 05/21/2014 [facility] Height 160.02 cm 05/21/2014 [facility] Weight 70.455 05/21/2014 [facility] Temperature Oral (F) 97.9 F 05/21/2014 [facility] Heart Rate 74 05/21/2014 [facility] Weight 68.182 11/09/2013 [facility] Height 162.56 cm 11/09/2013 [facility] Respitory Rate 18 11/09/2013 [facility] Temperature Oral (F) 97.8 F 11/09/2013 [facility] Systolic (mm Hg) 151 11/09/2013 [facility] Heart Rate 95 11/09/2013 [facility] Diastolic (mm Hg) 91 11/09/2013 [facility] Respitory Rate 16 08/17/2013 [facility] Diastolic (mm Hg) 77 08/17/2013 [facility] Systolic (mm Hg) 128 08/17/2013 [facility] Heart Rate 71 08/17/2013 [facility] Temperature Oral (F) 97.7 F 08/17/2013 [facility] Respitory Rate 16 08/17/2013 [facility] Diastolic (mm Hg) 68 08/17/2013 [facility] Systolic (mm Hg) 118 08/17/2013 [facility] Heart Rate 69 08/17/2013 [facility] Temperature Oral (F) 98.0 F 08/17/2013 [facility] Diastolic (mm Hg) 66 08/17/2013 [facility] Systolic (mm Hg) 106 08/17/2013 [facility] Heart Rate 73 08/17/2013 [facility] Respitory Rate 15 08/17/2013 [facility] Temperature Oral (F) 97.9 F 08/17/2013 [facility] Height 165.1 cm 08/14/2013 [facility] Weight 70.455 08/14/2013 [facility] Weight 69.091 02/20/2013 [facility] Height 154.94 cm 02/20/2013 [facility] Encounters Location Location Details Encounter Type Encounter Number Reason For Visit Attending Provider ADM Date DC Date Status Source [facility] Emergency [id number] ABD PAIN JAYDON JAMISONE 02/20/2013 02/20/2013 Active [facility] OU [id number] TRISTAN VIRK 08/14/2013 08/17/2013 Active [facility] Emergency [id number] DALLAS CAMPBELL 11/08/2013 11/09/2013 Active [facility] OBS Day Surgery [id number] Delgado Salazar 05/23/2014 05/23/2014 [facility] [id number] Ethan RodriguezEzequiel 05/05/2015 05/05/2015 [facility] [id number] Oliver Maldonado 10/14/2015 10/14/2015 [facility] Outpatient [id number] Clayton Lagos 11/19/2015 11/20/2015 [facility] [id number] Maci Akujokayla 02/03/2016 02/04/2016 [facility] [id number] Maci Akujobi 02/07/2016 02/07/2016 [facility] [place] OP Therapy Patients [id number] Wang Aaron 02/20/2016 03/21/2016 [facility] Mauricio Johns MD, PA new pt /walk in [id number] 12/14/2016 12/14/2016 Mauricio Johns MD, PA new pt /walk in [id number] 12/14/2016 12/14/2016 Mauricio Johns MD, PA new pt /walk in [id number] 12/14/2016 12/14/2016 Mauricio Johns MD, PA Unknown [id number] 12/17/2016 12/17/2016 Mauricio Johns MD, [place] Unknown [id number] 12/17/2016 12/17/2016 Mauricio Johns MD, PA Refills [id number] 12/17/2016 12/17/2016 Mauricio Johns [facility] Emergency [id number] Roman Dave 06/22/2017 06/23/2017 [facility] Emergency [id number] Mirta Virk 11/17/2017 11/17/2017 [facility] Observation [id number] Barb Levin 11/22/2017 11/23/2017 [facility] Procedures Procedure Code Date Perfomer Comments Source Upper gastrointestinal endoscopy including esophagus, stomach, and either the duodenum and/or jejunum as appropriate; with biopsy, single or multiple [id number] 08/16/2013 [facility] Cholecystectomy [id number] [facility] Hysterectomy [id number] [facility] Cholecystectomy [id number] [facility] Hysterectomy [id number] [facility] Operation on neck [id number] [facility] Operative procedure on wrist<sup>1</sup> [id number] cyst removal - left [facility] Procedure on back<sup>2</sup> [id number] "bulging disc" [facility] Transposition of ulnar nerve at elbow<sup>3</sup> [id number] [facility] Operation on neck [id number] [facility] Operative procedure on wrist<sup>1</sup> 21405502 cyst removal - left [facility] Procedure on back<sup>2</sup> [id number] "bulging disc" [facility] Transposition of ulnar nerve at elbow<sup>3</sup> [id number] [facility]
--- OUTSIDE RECORDS SUMMARY | 2018-11-07 11:51 | XMS REPORT | CCD ---
Author Author Auto Generated Organization [facility] Address Unknown Phone Unavailable Care Team Providers Care Shuttle Operator Name Role Phone [employer] RP Delgado Chavez [employer] CP Allergies, Adverse Reactions, Alerts Substance Reaction Status penicillin Active Problem List Condition Effective Dates Status DM - Diabetes mellitus Active Medications Medication Instructions Start Date End Date Status pneumococcal 0.5 ml, Route: IM, Drug Form: INJ, 12/19/2006 12/19/2006 Completed 23-valent vaccine ONCE, Start date: 12/19/06 7:20:00, Stop date: 12/19/06 7:20:00 Immunizations Vaccine Date Status pneumococcal 23-valent vaccine 12/19/2006 Auth (Verified) Vital Signs Most recent to oldest [Reference Range]: 1 Height 154.94 cm (02/20/2013 16:50:00) Weight 69.091 kg (02/20/2013 16:50:00) Results BEDSIDE GLUCOSE TESTING Most recent to oldest [Reference Range]: 1 Gluc POC Lifscn [70-99 mg/dL] 159 mg/dL 1 *HI* (02/20/2013 16:50:00) 1Interpretive Data: Upper Reportable Limit: 200 mg/dL. URINALYSIS Most recent to oldest [Reference Range]: 1 UA Turbidity [Clear] Clear (02/20/2013 18:39:00) UA Color Ltyellow *NA* (02/20/2013 18:39:00) UA pH [5.0-8.0] 5.0 (02/20/2013 18:39:00) UA Spec Grav [<=1.030] 1.005 (02/20/2013 18:39:00) UA Glucose [Negative mg/dL] Negative mg/dL *NA* (02/20/2013 18:39:00) UA Blood [Negative] Negative (02/20/2013 18:39:00) UA Ketones [Negative mg/dL] Negative mg/dL *NA* (02/20/2013 18:39:00) UA Protein [Negative mg/dL] Negative mg/dL (02/20/2013 18:39:00) UA Urobilinogen [0.1-1.0 mg/dL] <=1.0 mg/dL *NA* (02/20/2013 18:39:00) UA Bili [Negative] Negative *NA* (02/20/2013 18:39:00) UA Leuk Est [Negative] Negative (02/20/2013 18:39:00) UA Nitrite [Negative] Negative (02/20/2013 18:39:00) UA WBC [0-5 /HPF] <1 /HPF (02/20/2013 18:39:00) UA RBC [0-2 /HPF] <1 /HPF (02/20/2013 18:39:00) UA Sq Epi [Few /LPF] Occasional /LPF *NA* (02/20/2013 18:39:00) CHEMISTRY Most recent to oldest [Reference Range]: 1 Sodium Lvl [135-145 mEq/L] 139 mEq/L (02/20/2013 18:39:00) Potassium Lvl [3.5-5.1 mEq/L] 4.0 mEq/L (02/20/2013 18:39:00) Chloride Lvl [95-109 mEq/L] 102 mEq/L (02/20/2013 18:39:00) CO2 [24-32 mEq/L] 29 mEq/L (02/20/2013 18:39:00) AGAP [10.0-20.0 mEq/L] 12.0 mEq/L (02/20/2013 18:39:00) Creatinine Lvl [0.5-1.4 mg/dL] 0.7 mg/dL (02/20/2013 18:39:00) eGFR 95 mL/min/1.73m2 2 *NA* (02/20/2013 18:39:00) BUN [7-22 mg/dL] 12 mg/dL (02/20/2013 18:39:00) B/C Ratio [6-25] 17 (02/20/2013 18:39:00) Glucose Lvl [70-99 mg/dL] 107 mg/dL 3 *HI* (02/20/2013 18:39:00) Total Protein [6.4-8.4 g/dL] 8.4 g/dL (02/20/2013 18:39:00) Albumin Lvl [3.5-5.0 g/dL] 4.3 g/dL (02/20/2013 18:39:00) Globulin [2.0-4.0 g/dL] 4.1 g/dL *HI* (02/20/2013 18:39:00) A/G Ratio [0.7-1.6] 1.0 (02/20/2013 18:39:00) Calcium Lvl [8.5-10.5 mg/dL] 9.2 mg/dL (02/20/2013 18:39:00) ALT [0-65 unit/L] 37 unit/L (02/20/2013 18:39:00) AST [0-37 unit/L] 17 unit/L (02/20/2013 18:39:00) Alk Phos [39-136 unit/L] 102 unit/L (02/20/2013 18:39:00) Bili Total [0.2-1.3 mg/dL] 0.6 mg/dL (02/20/2013 18:39:00) 2Result Comment: The eGFR is calculated using [...] be mul tiplied by the estimated BMI. 3Interpretive Data: Adult reference range values reflect the clinical guidelines of the [place] [employer]. HEMATOLOGY Most recent to oldest [Reference Range]: 1 WBC [3.7-10.4 K/CMM] 12.4 K/CMM *HI* (02/20/2013 18:39:00) RBC [4.20-5.40 M/CMM] 4.62 M/CMM (02/20/2013 18:39:00) Hgb [12.0-16.0 g/dL] 14.2 g/dL (02/20/2013 18:39:00) Hct [36.0-48.0 %] 42.0 % (02/20/2013 18:39:00) MCV [81.0-99.0 fL] 91.1 fL (02/20/2013 18:39:00) MCH [27.0-31.0 pg] 30.8 pg (02/20/2013 18:39:00) MCHC [32.0-36.0 g/dL] 33.9 g/dL (02/20/2013 18:39:00) RDW [11.5-14.5 %] 12.4 % (02/20/2013 18:39:00) Platelet [133-450 K/CMM] 241 K/CMM (02/20/2013 18:39:00) MPV [7.4-10.4 fL] 9.0 fL (02/20/2013 18:39:00) Segs [45.0-75.0 %] 56.0 % (02/20/2013 18:39:00) Lymphocytes [20.0-40.0 %] 34.0 % (02/20/2013 18:39:00) Monocytes [2.0-12.0 %] 7.8 % (02/20/2013 18:39:00) Eosinophils [0.0-4.0 %] 1.6 % (02/20/2013 18:39:00) Basophils [0.0-1.0 %] 0.6 % (02/20/2013 18:39:00) Segs-Bands # [1.5-8.1 K/CMM] 6.9 K/CMM (02/20/2013 18:39:00) Lymphocytes # [1.0-5.5 K/CMM] 4.2 K/CMM (02/20/2013 18:39:00) Monocytes # [0.0-0.8 K/CMM] 1.0 K/CMM *HI* (02/20/2013 18:39:00) Eosinophils # [0.0-0.5 K/CMM] 0.2 K/CMM (02/20/2013 18:39:00) Basophils # [0.0-0.2 K/CMM] 0.1 K/CMM (02/20/2013 18:39:00)
--- OUTSIDE RECORDS SUMMARY | 2018-11-07 11:51 | XMS REPORT | CCD ---
Author Author Auto Generated Organization [facility] Address Unknown Phone Unavailable Care Team Providers Care Ride Mechanic Name Role Phone Soy Brooks RP Allergies, [...] values reflect the clinical guidelines of the [place] [employer]. 7Interpretive Data: Adult reference range values reflect the clinical guidelines of the [place] [employer]. HEMATOLOGY Most recent to oldest [...]
--- OUTSIDE RECORDS SUMMARY | 2018-11-07 11:52 | XMS REPORT | CCD ---
Author Author Auto Generated Organization [facility] Address Unknown Phone Unavailable Care Team Providers Care Supervisor Belt And Link Assembly Name Role Phone Soy Brooks RP Allergies, [...] values reflect the clinical guidelines of the [place] [employer]. 7Interpretive Data: Adult reference range values reflect the clinical guidelines of the [place] [employer]. HEMATOLOGY Most recent to oldest [...]
--- OUTSIDE RECORDS SUMMARY | 2018-11-07 11:52 | XMS REPORT | CCD ---
Author Author Auto Generated Organization [facility] Address Unknown Phone Unavailable Care Team Providers Care Lot Attendant Name Role Phone Soy Brooks RP Allergies, [...] values reflect the clinical guidelines of the [place] [employer]. 7Interpretive Data: Adult reference range values reflect the clinical guidelines of the [place] [employer]. HEMATOLOGY Most recent to oldest [...] Procedures Procedures Date Related Diagnosis Cholecystectomy Hysterectomy Upper gastrointestinal endoscopy including esophagus, 08/16/2013 00:00:00 stomach, and either the duodenum and/or jejunum as appropriate; with biopsy, single or multiple
--- OUTSIDE RECORDS SUMMARY | 2018-11-07 11:52 | XMS REPORT | CCD ---
Author Author Auto Generated Organization [facility] Address Unknown Phone Unavailable Care Team Providers Care As400 Analyst Name Role Phone Soy Brooks RP Allergies, [...]
--- OUTSIDE RECORDS SUMMARY | 2018-11-07 11:52 | XMS REPORT | Summary of Care ---
Author Organization Unknown Address Unknown Phone Unavailable Encounter HQ Ace(TOMAS) [id number] Date(s): 05/23/14 - 05/23/14 [facility] [address] Discharge Disposition: Home Physician Attending: Delgado Salazar MD Physician_Referring: Delgado Salazar MD Reason for Visit ICD 782.2 / CPT 29769 Vital Signs 1 2 3 Most recent to oldest [Reference Range]: 160.02 cm (05/21/14 8:58 AM) Height 97.9 DegF (05/21/14 8:55 AM) Temperature Oral [96.4-99.1 DegF] 104 mmHg (05/23/14 11:30 AM) 110 mmHg (05/23/14 10:45 AM) 111 mmHg (05/23/14 10:35 AM) Systolic Blood Pressure [90-140 mmHg] 54 mmHg *LOW* (05/23/14 11:30 AM) 60 mmHg (05/23/14 10:45 AM) 60 mmHg (05/23/14 10:35 AM) Diastolic Blood Pressure [60-90 mmHg] 13 BRMIN *LOW* (05/23/14 10:45 AM) 13 BRMIN *LOW* (05/23/14 10:35 AM) 11 BRMIN *LOW* (05/23/14 10:20 AM) Respiratory Rate [14-20 BRMIN] 72 bpm (05/23/14 8:34 AM) 74 bpm (05/21/14 8:55 AM) Peripheral Pulse Rate [60-100 bpm] 70.455 kg (05/21/14 8:58 AM) Weight 27.51 m2 (05/21/14 8:58 AM) Body Mass Index Problem List Condition Effective Dates Status Health Status Informant Depression(Confirmed Active ) DM - Diabetes Active mellitus(Confirmed) Hyperlipemia(Confirm Active ed) Hypothyroidism(Confi Active rmed) Allergies, Adverse Reactions, Alerts Substance Reaction Severity Status penicillin Active Medications acetaminophen-hydrocodone 325 mg-5 mg oral tablet 1 tab, PO, Q6H, # 15 tab, 0 Refill(s) Start Date: 05/23/14 Status: Ordered clindamycin 600 mg, Route: IVPB, ONCE, Dosing Weight 70.455, kg, Start date: 05/23/14 8:53:0 0, Stop date: 05/23/14 8:53:00 Start Date: 05/23/14 Stop Date: 05/23/14 Status: Completed fentaNYL 25 microgram, Route: IVP, Q5Min, Dosing Weight 70.455, kg, PRN Pain Score 4-6, S tart date: 05/23/14 10:39:00, Duration: 4 doses or times, Stop date: Limited # o f times Start Date: 05/23/14 Stop Date: 05/23/14 Status: Discontinued flumazenil 0.2 mg, Route: IVP, PRN, Dosing Weight 70.455, kg, PRN Benzodiazepine Reversal, Initial dose, Start date: 05/23/14 10:39:00, Duration: 30 day, Stop date: 10:38:00 Start Date: 05/23/14 Stop Date: 05/23/14 Status: Discontinued hydromorphone 0.5 mg, Route: IVP, Q5Min, Dosing Weight 70.455, kg, PRN Pain Score 7-10, Start date: 05/23/14 10:39:00, Duration: 4 doses or times, Stop date: Limited # of antoine es Start Date: 05/23/14 Stop Date: 05/23/14 Status: Discontinued Insulin regular 4 unit, Route: IVP, PRE OP, Dosing Weight 70.455, kg, Start date: 05/23/14 9:00: 00, Duration: 30 day, Stop date: 06/22/14 8:59:00 Start Date: 05/23/14 Stop Date: 05/23/14 Status: Completed Lactated Ringers Injection IV 1000 mL 1,000 mL, Rate: 25 ml/hr, Infuse over: 40 hr, Route: IV, Dosing Weight 70.455 kg , Total Volume: 1,000, Start date: 05/23/14 8:27:00, Duration: 30 day, Stop date : 06/22/14 8:26:00 Start Date: 05/23/14 Stop Date: 05/23/14 Status: Discontinued meperidine 12.5 mg, Route: IVP, Q30Min, Dosing Weight 70.455, kg, PRN Other -See Comment, F or shivering, Start date: 05/23/14 10:39:00, Duration: 2 doses or times, Stop da te: Limited # of times Start Date: 05/23/14 Stop Date: 05/23/14 Status: Discontinued naloxone 0.04 mg, Route: IVP, Q2MIN, Dosing Weight 70.455, kg, PRN Narcotic Reversal, Sta rt date: 05/23/14 10:39:00, Duration: 8 doses or times, Stop date: Limited # of times Start Date: 05/23/14 Stop Date: 05/23/14 Status: Discontinued Jackson 10/325 oral tablet 1 tab, Route: PO, Drug Form: TAB, Dosing Weight 70.455, kg, Q4H, PRN Pain, Start date: 05/23/14 10:39:00, Duration: 30 day, Stop date: 06/22/14 10:38:00 Start Date: 05/23/14 Stop Date: 05/23/14 Status: Discontinued Ofirmev 1,000 mg, Route: IV, Drug form: INJ, ONCE, Dosing Weight 70.455, kg, PRN Pain, f or > or=50 kg, Start date: 05/23/14 10:39:00 Start Date: 05/23/14 Stop Date: 05/23/14 Status: Discontinued ondansetron 4 mg, Route: IVP, ONCE, Dosing Weight 70.455, kg, PRN Nausea & Vomiting, Start date: 05/23/14 10:39:00 Start Date: 05/23/14 Stop Date: 05/23/14 Status: Discontinued oxyCODONE 5 mg, Route: PO, Drug form: TAB, Q4H, Dosing Weight 70.455, kg, PRN Pain Score 4 -6, Start date: 05/23/14 10:39:00, Duration: 30 day, Stop date: 06/22/14 10:38:0 0 Start Date: 05/23/14 Stop Date: 05/23/14 Status: Discontinued Zantac 150 150 mg, PO, PRN, 0 Refill(s) Start Date: 05/21/14 Status: Ordered Results ELECTROLYTES Most recent to 1 oldest [Reference Range]: Sodium Lvl [135-145 137 mEq/L mEq/L] (05/21/14 9:15 AM) Potassium Lvl 3.6 mEq/L [3.5-5.1 mEq/L] (05/21/14 9:15 AM) Chloride Lvl [95-109 101 mEq/L mEq/L] (05/21/14 9:15 AM) CO2 [24-32 mEq/L] 25 mEq/L (05/21/14 9:15 AM) AGAP [10.0-20.0 14.6 mEq/L mEq/L] (05/21/14 9:15 AM) CHEM PANEL Most recent to 1 oldest [Reference Range]: Creatinine Lvl 0.7 mg/dL [0.5-1.4 mg/dL] (05/21/14 9:15 AM) eGFR 94 mL/min/1.73m2 1 *NA* (05/21/14 9:15 AM) BUN [7-22 mg/dL] 13 mg/dL (05/21/14 9:15 AM) Glucose Lvl [70-99 264 mg/dL 2 mg/dL] *HI* (05/21/14 9:15 AM) Calcium Lvl 8.6 mg/dL [8.5-10.5 mg/dL] (05/21/14 9:15 AM) 1Result Comment: The eGFR is calculated using [...] be mul tiplied by the estimated BMI. 2Interpretive Data: Adult reference range values reflect the clinical guidelines of the [place] [employer]. HEMATOLOGY Most recent to 1 oldest [Reference Range]: Hgb [12.0-16.0 g/dL] 13.2 g/dL (05/21/14 9:15 AM) Hct [36.0-48.0 %] 38.3 % (05/21/14 9:15 AM) Medications Administered During Your Visit No data available for this section Immunizations Vaccine Date Refusal Reason pneumococcal 23-valent vaccine 08/15/13 pneumococcal 23-valent vaccine 12/19/06 Procedures Procedure Type Body Site Date of Procedure Related Diagnosis Operation on neck Operative procedure on wrist1 Procedure on back2 Transposition of ulnar nerve at elbow3 1cyst removal - left 2"bulging disc" 3left Social History Social History Type Response Alcohol Use: Never Smoking Status Current every day smoker, Type: Cigarettes, Exposure to Tobacco Smoke None, Exposure to Tobacco Smoke patient smokes, Cigarette Smoking Last 365 Days Yes, Reg Smoking Cessation Counseling No
--- OUTSIDE RECORDS SUMMARY | 2018-11-07 11:52 | XMS REPORT | CCD ---
Author Author Auto Generated Organization [facility] Address Unknown Phone Unavailable Care Team Providers Care Manager City Name Role Phone Wilmar Strickland CP Allergies, Adverse Reactions, Alerts Substance Reaction Status penicillin Active Problem List Condition Effective Dates Status DM - Diabetes mellitus Active HTN - Hypertension Resolved Hyperlipemia Resolved Hypothyroidism Resolved Medications Medication Instructions Start Date End Date Status pneumococcal 0.5 ml, Route: IM, Drug Form: INJ, 08/15/2013 08/15/2013 Completed 23-valent vaccine Start date: 08/15/13 9:00:00, Stop date: 08/15/13 9:00:00 pneumococcal 0.5 ml, Route: IM, Drug Form: INJ, 12/19/2006 12/19/2006 Completed 23-valent vaccine ONCE, Start date: 12/19/06 7:20:00, Stop date: 12/19/06 7:20:00LOT#: Mfg: (Same as: Pneumovax 23) Immunizations Vaccine Date Status pneumococcal 23-valent vaccine 12/19/2006 Auth (Verified) pneumococcal 23-valent vaccine 08/15/2013 Auth (Verified) Vital Signs Most recent to oldest [Reference Range]: 1 Height 162.56 cm (11/08/2013 23:56:00) Temperature Oral [96.4-99.1 DegF] 97.8 DegF (11/08/2013 23:56:00) Systolic Blood Pressure [90-140 mmHg] 151 mmHg *HI* (11/08/2013 23:56:00) Diastolic Blood Pressure [60-90 mmHg] 91 mmHg *HI* (11/08/2013 23:56:00) Respiratory Rate [14-20 BRMIN] 18 BRMIN (11/08/2013 23:56:00) Peripheral Pulse Rate [60-100 bpm] 95 bpm (11/08/2013 23:56:00) Weight 68.182 kg (11/08/2013 23:56:00)
--- OUTSIDE RECORDS SUMMARY | 2018-11-07 11:52 | XMS REPORT | Summary of Care ---
Author Author [facility] Organization [facility] Address Unknown Phone Unavailable Encounter KAYLYN Bello(TOMAS) [id number] Date(s): 02/07/16 - 02/07/16 [facility] [address] [place] [address]- [phone] Discharge Diagnosis: Hematuria, unspecified Discharge Diagnosis: Low back pain Discharge Disposition: Home Attending Physician: Maci Nassar DO Vital Signs Most recent to 1 2 oldest [Reference Range]: Height 162.56 cm (02/07/16 11:52 AM) Temperature Oral 98.1 DegF 98.1 DegF [96.4-99.1 DegF] (02/07/16 1:50 PM) (02/07/16 11:52 AM) Blood Pressure 136/70 mmHg 139/74 mmHg [90-140/60-90 mmHg] (02/07/16 1:50 PM) (02/07/16 11:52 AM) Respiratory Rate 20 BRMIN 18 BRMIN [14-20 BRMIN] (02/07/16 1:50 PM) (02/07/16 11:52 AM) Peripheral Pulse 87 bpm 96 bpm Rate [60-100 bpm] (02/07/16 1:50 PM) (02/07/16 11:52 AM) Weight 70 kg (02/07/16 11:52 AM) Body Mass Index 26.49 m2 (02/07/16 11:52 AM) Problem List Condition Effective Dates Status Health Status Informant Depression(Confirmed Active ) DM - Diabetes Active mellitus(Confirmed) Hyperlipemia(Confirm Active ed) Hypothyroidism(Confi Active rmed) Allergies, Adverse Reactions, Alerts Substance Reaction Severity Status penicillin Active Medications Insulin regular 7 unit, 0.07 mL, Route: IVP, Drug form: INJ, ONCE, Dosing Weight 70, kg, Priorit y: STAT, Start date: 02/07/16 12:18:00 CDT, Stop date: 02/07/16 12:18:00 CDT Notes: (Same as: Humulin R and NovoLIN R)WASTE: F/P - Black; E - Municipal Trash Bin (Do not shake) Start Date: 02/07/16 Stop Date: 02/07/16 Status: Completed morphine Sulfate 4 mg, 2 mL, Route: IVP, Drug form: INJ, ONCE, Dosing Weight 68.182, kg, Priority : STAT, Start date: 02/07/16 12:00:00 CDT, Stop date: 02/07/16 12:00:00 CDT Notes: (Same as:MORPhine Sulfate) Start Date: 02/07/16 Stop Date: 02/07/16 Status: Completed ondansetron 4 mg, 2 mL, Route: IVP, Drug form: INJ, ONCE, Dosing Weight 68.182, kg, Priority : STAT, Start date: 02/07/16 12:00:00 CDT, Stop date: 02/07/16 12:00:00 CDT Notes: (Same as: Lorelei) MEDICATION WASTE Product Size: 4 mgProduct Was anna: ___ mg Start Date: 02/07/16 Stop Date: 02/07/16 Status: Completed Saline Flush 0.9% 10 mL, Route: IVP, Drug Form: INJ, Dosing Weight 68.182, kg, PRN, PRN Line Flush , Start date: 02/07/16 12:00:00 CDT, Duration: 30 day, Stop date: 03/08/16 11:59 :00 CDT Notes: (Same as: BD Posiflush) Start Date: 02/07/16 Stop Date: 02/07/16 Status: Discontinued Sodium Chloride 0.9% (Bolus) IV 1,000 mL, 1,000 ml/hr, Infuse Over: 1 hr, Route: IV, 1,000, Drug form: INJ, ONCE , Priority: STAT, Dosing Weight 70 kg, Start date: 02/07/16 12:18:00 CDT, Durati on: 1 doses or times, Stop date: 02/07/16 12:18:00 CDT Start Date: 02/07/16 Stop Date: 02/07/16 Status: Completed Sodium Chloride 0.9% (Bolus) IV 1,000 mL, 1000 ml/hr, Infuse Over: 1 hr, Route: IV, 1,000, Drug form: INJ, ONCE, Priority: STAT, Dosing Weight 68.182 kg, Start date: 02/07/16 12:00:00 CDT, Dur ation: 1 doses or times, Stop date: 02/07/16 12:00:00 CDT Start Date: 02/07/16 Stop Date: 02/07/16 Status: Completed Results ELECTROLYTES Most recent to 1 oldest [Reference Range]: Sodium Lvl [135-145 135 mEq/L mEq/L] (02/07/16 12:07 PM) Potassium Lvl 3.9 mEq/L [3.5-5.1 mEq/L] (02/07/16 12:07 PM) Chloride Lvl [95-109 99 mEq/L mEq/L] (02/07/16 12:07 PM) CO2 [24-32 mEq/L] 27 mEq/L (02/07/16 12:07 PM) AGAP [10.0-20.0 12.9 mEq/L mEq/L] (02/07/16 12:07 PM) CHEM PANEL Most recent to 1 oldest [Reference Range]: Creatinine Lvl 0.68 mg/dL [0.50-1.40 mg/dL] (02/07/16 12:07 PM) eGFR 94 mL/min/1.73m2 1 *NA* (02/07/16 12:07 PM) BUN [7-22 mg/dL] 15 mg/dL (02/07/16 12:07 PM) B/C Ratio [6-25] 22 (02/07/16 12:07 PM) Glucose Lvl [70-99 210 mg/dL mg/dL] *HI* (02/07/16 12:07 PM) Total Protein 7.3 g/dL [6.4-8.4 g/dL] (02/07/16 12:07 PM) Albumin Lvl [3.5-5.0 3.9 g/dL g/dL] (02/07/16 12:07 PM) Globulin [2.0-4.0 3.4 g/dL g/dL] (02/07/16 12:07 PM) A/G Ratio [0.7-1.6] 1.1 (02/07/16:07 PM) Calcium Lvl 8.9 mg/dL [8.5-10.5 mg/dL] (02/07/16 12:07 PM) ALT [0-65 unit/L] 28 unit/L (02/07/16 12:07 PM) AST [0-37 unit/L] 8 unit/L (02/07/16:07 PM) Alk Phos [39-136 83 unit/L unit/L] (02/07/16:07 PM) Bili Total [0.2-1.3 0.8 mg/dL mg/dL] (02/07/16: PM) Ketone Quantitative 0.16 mmol/L [<=0.27 mmol/L] (02/07/16:07 PM) 1Result Comment: The eGFR is calculated using [...] be mul tiplied by the estimated BMI. URINE AND STOOL Most recent to 1 oldest [Reference Range]: UA Turbidity [Clear] Clear (02/07/16 12:07 PM) UA Color Ltyellow *NA* (02/07/16:07 PM) UA pH [5.0-8.0] 6.0 (02/07/16 12:07 PM) UA Spec Grav 1.004 [<=1.030] (02/07/16 12:07 PM) UA Glucose [Negative Negative mg/dL mg/dL] *NA* (02/07/16:07 PM) UA Blood [Negative] Small *ABN* (02/07/16 12:07 PM) UA Ketones [Negative Negative mg/dL mg/dL] *NA* (02/07/16 12:07 PM) UA Protein [Negative Negative mg/dL mg/dL] (02/07/16 12:07 PM) UA Urobilinogen <=1.0 mg/dL [0.1-1.0 mg/dL] *NA* (02/07/16 12:07 PM) UA Bili [Negative] Negative *NA* (02/07/16 12:07 PM) UA Leuk Est Negative [Negative] (02/07/16 12:07 PM) UA Nitrite Negative [Negative] (02/07/16 12:07 PM) UA RBC [0-2 /HPF] <1 /HPF (02/07/16 12:07 PM) UA Sq Epi [Few /LPF] Occasional /LPF *NA* (02/07/16 12:07 PM) HEMATOLOGY Most recent to 1 oldest [Reference Range]: WBC [3.7-10.4 K/CMM] 10.1 K/CMM (02/07/16 12:07 PM) RBC [4.20-5.40 4.78 M/CMM M/CMM] (02/07/16 12:07 PM) Hgb [12.0-16.0 g/dL] 14.3 g/dL (02/07/16 12:07 PM) Hct [36.0-48.0 %] 41.9 % (02/07/16 12:07 PM) MCV [80.0-98.0 fL] 87.6 fL (02/07/16 12:07 PM) MCH [27.0-31.0 pg] 30.0 pg (02/07/16 12:07 PM) MCHC [32.0-36.0 34.2 g/dL g/dL] (02/07/16 12:07 PM) RDW [11.5-14.5 %] 13.1 % (02/07/16 12:07 PM) Platelet [133-450 245 K/CMM K/CMM] (02/07/16 12:07 PM) MPV [7.4-10.4 fL] 9.5 fL (02/07/16 12:07 PM) Segs [45.0-75.0 %] 61.3 % (02/07/16 12:07 PM) Lymphocytes 29.3 % [20.0-40.0 %] (02/07/16 12:07 PM) Monocytes [2.0-12.0 7.9 % %] (02/07/16 12:07 PM) Eosinophils [0.0-4.0 1.0 % %] (02/07/16 12:07 PM) Basophils [0.0-1.0 0.5 % %] (02/07/16 12:07 PM) Segs-Bands # 6.2 K/CMM [1.5-8.1 K/CMM] (02/07/16 12:07 PM) Lymphocytes # 3.0 K/CMM [1.0-5.5 K/CMM] (02/07/16 12:07 PM) Monocytes # [0.0-0.8 0.8 K/CMM K/CMM] (02/07/16 12:07 PM) Eosinophils # 0.1 K/CMM [0.0-0.5 K/CMM] (02/07/16 12:07 PM) Basophils # [0.0-0.2 0.1 K/CMM K/CMM] (02/07/16 12:07 PM) Immunizations Vaccine Date Refusal Reason pneumococcal 23-valent vaccine 08/15/13 pneumococcal 23-valent vaccine 12/19/06 Procedures Procedure Date Related Diagnosis Body Site Cholecystectomy Hysterectomy Operation on neck Operative procedure on wrist1 Procedure on back2 Transposition of ulnar nerve at elbow3 1cyst removal - left 2"bulging disc" 3left Social History Social History Type Response Alcohol Never Smoking Status Current every day smoker; Type: Cigarettes; Exposure to Tobacco Smoke None; Exposure to Tobacco Smoke patient smokes; Cigarette Smoking Last 365 Days Yes; Reg Smoking Cessation Counseling No Assessment and Plan No data available for this section
--- OUTSIDE RECORDS SUMMARY | 2018-11-07 11:52 | XMS REPORT | Summary of Care ---
Author Author [facility] Organization [facility] Address Unknown Phone Unavailable Encounter KAYLYN Bello(TOMAS) [id number] Date(s): 05/05/15 - 05/05/[address] [facility] [address] [place] [address]- Discharge Diagnosis: Hyperglycemia Discharge Diagnosis: Bartholin's gland abscess Discharge Disposition: Home Attending Physician: Ethan Nieves MD Vital Signs 1 2 3 Most recent to oldest [Reference Range]: 160.02 cm (05/05/15 9:03 AM) Height 1 2 3 Most recent to oldest [Reference Range]: 97.7 DegF (05/05/15 10:29 AM) 97.7 DegF (05/05/15 9:17 AM) 97.7 DegF (05/05/15 9:03 AM) Temperature Oral [96.4-99.1 DegF] 1 2 3 Most recent to oldest [Reference Range]: 125/80 mmHg (05/05/15 10:29 AM) 156/79 mmHg *HI* (05/05/15 9:03 AM) Blood Pressure [90-140/60-90 mmHg] 160 mmHg *HI* (05/05/15 9:17 AM) Systolic Blood Pressure [90-140 mmHg] 1 2 3 Most recent to oldest [Reference Range]: 77 mmHg (05/05/15 9:17 AM) Diastolic Blood Pressure [60-90 mmHg] 1 2 3 Most recent to oldest [Reference Range]: 18 BRMIN (05/05/15 10:29 AM) 18 BRMIN (05/05/15 9:17 AM) 18 BRMIN (05/05/15 9:03 AM) Respiratory Rate [14-20 BRMIN] 1 2 3 Most recent to oldest [Reference Range]: 87 bpm (05/05/15 10:29 AM) 90 bpm (05/05/15 9:17 AM) 91 bpm (05/05/15 9:03 AM) Peripheral Pulse Rate [60-100 bpm] 1 2 3 Most recent to oldest [Reference Range]: 67.727 kg (05/05/15 9:03 AM) Weight 1 2 3 Most recent to oldest [Reference Range]: 26.45 m2 (05/05/15 9:03 AM) Body Mass Index Problem List Condition Effective Dates Status Health Status Informant Depression(Confirmed Active ) DM - Diabetes Active mellitus(Confirmed) Hyperlipemia(Confirm Active ed) Hypothyroidism(Confi Active rmed) Allergies, Adverse Reactions, Alerts Substance Reaction Severity Status penicillin Active Medications Bactrim DS 800 mg- 160 mg oral tablet 1 tab, PO, BID, X 7 day, # 14 tab, 0 Refill(s) Start Date: 05/05/15 Stop Date: 05/12/15 Status: Ordered Insulin regular 3 unit, Route: SUB-Q, ONCE, Dosing Weight 67.727, kg, Priority: STAT, Start date : 05/05/15 9:56:00, Stop date: 05/05/15 9:56:00 Start Date: 05/05/15 Stop Date: 05/05/15 Status: Completed tramadol 50 mg oral tablet 50 mg, Route: PO, Drug form: TAB, ONCE, Dosing Weight 67.727, kg, Priority: STAT , Start date: 05/05/15 10:05:00, Stop date: 05/05/15 10:05:00 Start Date: 05/05/15 Stop Date: 05/05/15 Status: Completed Ultram 50 mg oral tablet 50 mg=1 tab, PO, Q4H, PRN pain, X 3 day, # 20 tab, 0 Refill(s) Start Date: 05/05/15 Stop Date: 05/08/15 Status: Ordered Results No data available for this section Immunizations [...]
--- OUTSIDE RECORDS SUMMARY | 2018-11-07 11:52 | XMS REPORT | Summary of Care ---
Author Author [facility] Organization [facility] Address Unknown Phone Unavailable Encounter HQ Ace(TOMAS) [id number] Date(s): 11/19/15 - 11/19/15 [facility] [address] [place] [address]- Discharge Disposition: Home Attending Physician: Clayton Lagos MD Referring Physician: Clayton Lagos MD Vital Signs No data available for this section Problem List Condition Effective Dates Status Health Status Informant Depression(Confirmed Active ) DM - Diabetes Active mellitus(Confirmed) Hyperlipemia(Confirm Active ed) Hypothyroidism(Confi Active rmed) Allergies, Adverse Reactions, Alerts Substance Reaction Severity Status penicillin Active Medications No data available for this section Results No data available for this section [...]
--- OUTSIDE RECORDS SUMMARY | 2018-11-07 11:52 | XMS REPORT | Summary of Care ---
Author Author [facility] Organization [facility] Address Unknown Phone Unavailable Encounter KAYLYN Bello(TOMAS) [id number] Date(s): 10/14/15 - 10/14/15 [facility] [address] [place] [address]- Discharge Diagnosis: Acute URI Discharge Disposition: Home Attending Physician: Oliver Maldonado MD Vital Signs 1 2 3 Most recent to oldest [Reference Range]: 160.02 cm (10/14/15 12:57 AM) Height 98.4 DegF (10/14/15 4:30 AM) 98.2 DegF (10/14/15 12:57 AM) Temperature Oral [96.4-99.1 DegF] 96/49 mmHg (10/14/15 4:30 AM) 126/75 mmHg (10/14/15 1:48 AM) 173/78 mmHg *HI* (10/14/15 12:57 AM) Blood Pressure [90-140/60-90 mmHg] 20 BRMIN (10/14/15 4:30 AM) 20 BRMIN (10/14/15 1:48 AM) 24 BRMIN *HI* (10/14/15 12:57 AM) Respiratory Rate [14-20 BRMIN] 89 bpm (10/14/15 4:30 AM) 112 bpm *HI* (10/14/15 12:57 AM) Peripheral Pulse Rate [60-100 bpm] 67.273 kg (10/14/15 12:57 AM) Weight 26.27 m2 (10/14/15 12:57 AM) Body Mass Index Problem List Condition Effective Dates Status Health Status Informant Depression(Confirmed Active ) DM - Diabetes Active mellitus(Confirmed) Hyperlipemia(Confirm Active ed) Hypothyroidism(Confi Active rmed) Allergies, Adverse Reactions, Alerts Substance Reaction Severity Status penicillin Active Medications acetaminophen 325 mg oral tablet 650 mg, Route: PO, Drug form: TAB, ONCE, Dosing Weight 67.273, kg, Priority: STA T, Start date: 10/14/15 3:11:00, Stop date: 10/14/15 3:11:00 Start Date: 10/14/15 Stop Date: 10/14/15 Status: Completed codeine-guaiFENesin 10 mg-100 mg/5 mL oral syrup 5 mL, PO, Q6H, # 100 mL, 0 Refill(s) Start Date: 10/14/15 Status: Ordered DuoNeb inhalation solution 3 ml, Route: NEB, Drug Form: SOLN, Dosing Weight 67.273, kg, ONCE, PRN Respirato ry Protocol, Start date: 10/14/15 1:13:00, Stop date: 11/13/15 1:12:00 Start Date: 10/14/15 Stop Date: 10/14/15 Status: Completed Guiatussin with Codeine 10 mL, Route: PO, Drug Form: LIQ, Dosing Weight 67.273, kg, Q4H, Start date: 4:00:00, Duration: 1 doses or times, Stop date: 10/14/15 4:00:00 Notes: (Same As: Jona WEEKS) Start Date: 10/14/15 Stop Date: 10/14/15 Status: Completed Results ELECTROLYTES Most recent to 1 oldest [Reference Range]: Sodium Lvl [135-145 138 mEq/L mEq/L] (10/14/15 2:08 AM) Potassium Lvl 3.3 mEq/L [3.5-5.1 mEq/L] *LOW* (10/14/15 2:08 AM) Chloride Lvl [95-109 104 mEq/L mEq/L] (10/14/15 2:08 AM) CO2 [24-32 mEq/L] 23 mEq/L *LOW* (10/14/15 2:08 AM) AGAP [10.0-20.0 14.3 mEq/L mEq/L] (10/14/15 2:08 AM) CHEM PANEL Most recent to 1 oldest [Reference Range]: Creatinine Lvl 0.70 mg/dL [0.50-1.40 mg/dL] (10/14/15 2:08 AM) eGFR 93 mL/min/1.73m2 1 *NA* (10/14/15 2:08 AM) BUN [7-22 mg/dL] 11 mg/dL (10/14/15 2:08 AM) B/C Ratio [6-25] 16 (10/14/15 2:08 AM) Glucose Lvl [70-99 146 mg/dL mg/dL] *HI* (10/14/15 2:08 AM) Total Protein 7.2 g/dL [6.4-8.4 g/dL] (10/14/15 2:08 AM) Albumin Lvl [3.5-5.0 3.5 g/dL g/dL] (10/14/15 2:08 AM) Globulin [2.0-4.0 3.7 g/dL g/dL] (10/14/15 2:08 AM) A/G Ratio [0.7-1.6] 0.9 (10/14/15 2:08 AM) Calcium Lvl 8.5 mg/dL [8.5-10.5 mg/dL] (10/14/15 2:08 AM) ALT [0-65 unit/L] 23 unit/L (10/14/15 2:08 AM) AST [0-37 unit/L] 11 unit/L (10/14/15 2:08 AM) Alk Phos [39-136 88 unit/L unit/L] (10/14/15 2:08 AM) Bili Total [0.2-1.3 0.6 mg/dL mg/dL] (10/14/15 2:08 AM) 1Result Comment: The eGFR is calculated [...] be mul tiplied by the estimated BMI. CARDIAC ENZYMES Most recent to 1 oldest [Reference Range]: BNP [<=100 pg/mL] 32 pg/mL (10/14/15 2:08 AM) HEMATOLOGY Most recent to 1 oldest [Reference Range]: WBC [3.7-10.4 K/CMM] 13.6 K/CMM *HI* (10/14/15 2:08 AM) RBC [4.20-5.40 4.41 M/CMM M/CMM] (10/14/15 2:08 AM) Hgb [12.0-16.0 g/dL] 12.8 g/dL (10/14/15 2:08 AM) Hct [36.0-48.0 %] 39.2 % (10/14/15 2:08 AM) MCV [80.0-98.0 fL] 89.0 fL (10/14/15 2:08 AM) MCH [27.0-31.0 pg] 29.0 pg (10/14/15 2:08 AM) MCHC [32.0-36.0 32.6 g/dL g/dL] (10/14/15 2:08 AM) RDW [11.5-14.5 %] 12.5 % (10/14/15 2:08 AM) Platelet [133-450 198 K/CMM K/CMM] (10/14/15 2:08 AM) MPV [7.4-10.4 fL] 9.5 fL (10/14/15 2:08 AM) Segs [45.0-75.0 %] 72.0 % (10/14/15 2:08 AM) Lymphocytes 16.4 % [20.0-40.0 %] *LOW* (10/14/15 2:08 AM) Monocytes [2.0-12.0 8.7 % %] (10/14/15 2:08 AM) Eosinophils [0.0-4.0 2.1 % %] (10/14/15 2:08 AM) Basophils [0.0-1.0 0.8 % %] (10/14/15 2:08 AM) Segs-Bands # 9.8 K/CMM [1.5-8.1 K/CMM] *HI* (10/14/15 2:08 AM) Lymphocytes # 2.2 K/CMM [1.0-5.5 K/CMM] (10/14/15 2:08 AM) Monocytes # [0.0-0.8 1.2 K/CMM K/CMM] *HI* (10/14/15 2:08 AM) Eosinophils # 0.3 K/CMM [0.0-0.5 K/CMM] (10/14/15 2:08 AM) Basophils # [0.0-0.2 0.1 K/CMM K/CMM] (10/14/15 2:08 AM) VIRAL - SEROLOGY Most recent to 1 oldest [Reference Range]: Influ A [Negative] Negative (10/14/15 2:08 AM) Influ B [Negative] Negative (10/14/15 2:08 AM) Immunizations Vaccine Date Refusal Reason pneumococcal 23-valent [...]
--- OUTSIDE RECORDS SUMMARY | 2018-11-07 11:53 | XMS REPORT ---
Author Author Barb Levin Organization [employer] Address Unknown Phone Unavailable Care Team Providers Care Driftman Name Role Phone Barb Levin CP Unavailable Allergies No Known Allergies Problems Problem Type Condition Code Onset Dates Condition Status Problem Gastroesophageal reflux disease without esophagitis K21.9 Active Problem Hypothyroidism, unspecified type E03.9 Active Problem Uncontrolled hypertension I10 Active Problem Uncontrolled type 2 diabetes mellitus without complication, without long- term current use of insulin E11.65 Active Problem Severe episode of recurrent major depressive disorder, without psychotic features F33.2 Active Problem Pure hypercholesterolemia E78.00 Active Medications Medication Code System Code Instructions Start Date End Date Status Dosage Aidecamille Damaris [facility] 52611602491 100 mg Orally Three times a day Nov 23, 2017 Dec 03, 2017 Active 1 capsule as needed Results No Known Results Summary Purpose eClinicalWorks Submission
--- OUTSIDE RECORDS SUMMARY | 2018-11-07 11:53 | XMS REPORT ---
Author Author Barb Levin Organization [employer] Address Unknown Phone Unavailable Care Team Providers Care Inspector Assemblies And Installations Name Role Phone Barb Levin CP Unavailable [...] Instructions Start Date End Date Status Dosage Azithromycin [facility] 80018222657 250 MG Orally Once a day Nov 22, 2017 Nov 27, 2017 Active 2 tablets on the first day, then 1 tablet daily for 4 days Results No Known Results Summary Purpose eClinicalWorks Submission
--- OUTSIDE RECORDS SUMMARY | 2018-11-07 11:53 | XMS REPORT | Summary of Care ---
Author Author [facility] Organization [facility] Address Unknown Phone Unavailable Encounter KAYLYN Bello(TOMAS) [id number] Date(s): 06/22/17 - 06/22/17 [facility] [address] [place] [address]- Discharge Diagnosis: Acute pyelonephritis Discharge Diagnosis: Noncompliance with diabetes treatment Discharge Diagnosis: Fall from ground level Discharge Diagnosis: Acute left-sided low back pain without sciatica Discharge Diagnosis: Type 2 diabetes mellitus with hyperglycemia, with long-term current use of insulin Discharge Disposition: Home or Self Care Attending Physician: Roman Acosta MD Vital Signs 1 2 3 Most recent to oldest [Reference Range]: 162.56 cm (06/22/17 3:27 PM) Height 97.9 DegF (06/22/17 9:45 PM) 97.8 DegF (06/22/17 7:15 PM) 97.8 DegF (06/22/17 3:27 PM) Temperature Oral [96.4-99.1 DegF] 106/63 mmHg (06/22/17 9:45 PM) 126/69 mmHg (06/22/17 7:15 PM) 158/71 mmHg *HI* (06/22/17 3:27 PM) Blood Pressure [90-140/60-90 mmHg] 18 BRMIN (06/22/17 9:45 PM) 18 BRMIN (06/22/17 7:15 PM) 18 BRMIN (06/22/17 3:27 PM) Respiratory Rate [14-20 BRMIN] 75 bpm (06/22/17 9:45 PM) 74 bpm (06/22/17 7:15 PM) 105 bpm *HI* (06/22/17 3:27 PM) Peripheral Pulse Rate [60-100 bpm] 70 kg (06/22/17 3:27 PM) Weight 26.49 m2 (06/22/17 3:27 PM) Body Mass Index Problem List Condition Effective Dates Status Health Status Informant Depression(Confirmed Active ) DM - Diabetes Active mellitus(Confirmed) Hyperlipemia(Confirm Active ed) Hypothyroidism(Confi Active rmed) Allergies, Adverse Reactions, Alerts Substance Reaction Severity Status penicillin Active Medications Flexeril 10 mg, 1 tab, Route: PO, Drug form: TAB, ONCE, Dosing Weight 70, kg, Priority: S TAT, Start date: 06/22/17 16:26:00 CDT, Stop date: 06/22/17 16:26:00 CDT Notes: (Same As: Flexeril) Start Date: 06/22/17 Stop Date: 06/22/17 Status: Completed ibuprofen 600 mg oral tablet 600 mg=1 tab, PO, Q6H, PRN Pain, take with food, X 7 day, # 28 tab, 0 Refill(s) Start Date: 06/22/17 Stop Date: 06/29/17 Status: Ordered Insulin regular 10 unit, 0.1 mL, Route: SUB-Q, Drug form: INJ, ONCE, Dosing Weight 70, kg, Prior ity: STAT, Start date: 06/22/17 16:27:00 CDT, Stop date: 06/22/17 16:27:00 CDT Notes: (Same as: Humulin R and NovoLIN R)WASTE: F/P - Black; E - Municipal Trash Bin (Do not shake) Start Date: 06/22/17 Stop Date: 06/22/17 Status: Completed Keflex 500 mg oral capsule 500 mg=1 cap, PO, TID, X 10 day, # 30 cap, 0 Refill(s) Start Date: 06/22/17 Stop Date: 07/02/17 Status: Ordered ketOROLAC 60 mg, 2 mL, Route: IM, Drug form: INJ, ONCE, Dosing Weight 70, kg, Priority: ST AT, Start date: 06/22/17 16:26:00 CDT, Stop date: 06/22/17 16:26:00 CDT Notes: (Same as:Toradol) IV bolus must be given >15 seconds. Give IM administration slowly and deeply into the muscle.Not for use > 4 days MEDICATION WASTE Product Size: 60 mgProduct Wasted: ___ mg Start Date: 06/22/17 Stop Date: 06/22/17 Status: Completed [place] 10/325 oral tablet 1 tab, Route: PO, Drug Form: TAB, Dosing Weight 70, kg, ONCE, Start date: 16:26:00 CDT, Stop date: 06/22/17 16:26:00 CDT Notes: Do not exceed 4gm/day of acetaminophen. (Same as: [place] 325/10) Start Date: 06/22/17 Stop Date: 06/22/17 Status: Completed NovoLOG Mix 70/30 FlexPen subcutaneous suspension 15 unit, SUB-Q, BID, # 1 pen(s), 0 Refill(s) Start Date: 06/22/17 Status: Ordered Results URINE AND STOOL Most recent to 1 oldest [Reference Range]: UA Turbidity [Clear] Clear (06/22/17 6:11 PM) UA Color Ltyellow *NA* (06/22/17 6:11 PM) UA pH [5.0-8.0] 5.0 (06/22/17 6:11 PM) UA Spec Grav 1.009 [<=1.030] (06/22/17 6:11 PM) UA Glucose [Negative 500 mg/dL mg/dL] *ABN* (06/22/17 6:11 PM) UA Blood [Negative] Small *ABN* (06/22/17 6:11 PM) UA Ketones [Negative Negative mg/dL mg/dL] *NA* (06/22/17 6:11 PM) UA Protein [Negative Negative mg/dL mg/dL] (06/22/17 6:11 PM) UA Urobilinogen <=1.0 mg/dL [0.1-1.0 mg/dL] *NA* (06/22/17 6:11 PM) UA Bili [Negative] Negative *NA* (06/22/17 6:11 PM) UA Leuk Est Trace [Negative] *ABN* (06/22/17 6:11 PM) UA Nitrite Positive [Negative] *ABN* (06/22/17 6:11 PM) UA WBC [0-5 /HPF] 5 /HPF (06/22/17 6:11 PM) UA RBC [0-2 /HPF] 2 /HPF (06/22/17 6:11 PM) UA Bacteria [None Many /HPF Seen /HPF] *ABN* (06/22/17 6:11 PM) UA Sq Epi [Few /LPF] Occasional /LPF *NA* (06/22/17 6:11 PM) Immunizations Given and Recorded Vaccine Date Status Refusal Reason pneumococcal 23-valent vaccine 08/15/13 Given pneumococcal 23-valent vaccine 12/19/06 Given Procedures Procedure Date Related Diagnosis Body Site [...]
--- OUTSIDE RECORDS SUMMARY | 2018-11-07 11:53 | XMS REPORT | Summary of Care ---
Author Author [facility] Organization [facility] Address Unknown Phone Unavailable Encounter KAYLYN Bello(TOMAS) [id number] Date(s): 02/03/16 - 02/03/[address] [facility] [address] [place] [address]- [phone] Discharge Diagnosis: Low back pain Discharge Disposition: Elopement Attending Physician: Maci Nassar DO Vital Signs Most recent to 1 2 oldest [Reference Range]: Height 162.56 cm (02/03/16 3:19 PM) Temperature Oral 98.1 DegF [96.4-99.1 DegF] (02/03/16 7:00 PM) Blood Pressure 149/79 mmHg 180/82 mmHg [90-140/60-90 mmHg] *HI* *HI* (02/03/16 7:00 PM) (02/03/16 3:19 PM) Respiratory Rate 18 BRMIN 20 BRMIN [14-20 BRMIN] (02/03/16 7:00 PM) (02/03/16 3:19 PM) Peripheral Pulse 99 bpm 112 bpm Rate [60-100 bpm] (02/03/16 7:00 PM) *HI* (02/03/16 3:19 PM) Weight 68.182 kg (02/03/16 3:19 PM) Body Mass Index 25.8 m2 (02/03/16 3:19 PM) Problem List Condition Effective Dates Status Health Status Informant Depression(Confirmed Active ) DM - Diabetes Active mellitus(Confirmed) Hyperlipemia(Confirm Active ed) Hypothyroidism(Confi Active rmed) Allergies, Adverse Reactions, Alerts Substance Reaction Severity Status penicillin Active Medications dexamethasone 10 mg, 1 mL, Route: IM, Drug form: INJ, ONCE, Dosing Weight 68.182, kg, Priority : STAT, Start date: 02/03/16 18:31:00 CDT, Stop date: 02/03/16 18:31:00 CDT Notes: MEDICATION WASTE Product Size: 10 mgProduct Wasted: ___ mg Start Date: 02/03/16 Stop Date: 02/03/16 Status: Completed Flexeril 10 mg, 1 tab, Route: PO, Drug form: TAB, ONCE, Dosing Weight 68.182, kg, Priorit y: STAT, Start date: 02/03/16 18:31:00 CDT, Stop date: 02/03/16 18:31:00 CDT Notes: (Same As: Flexeril) Start Date: 02/03/16 Stop Date: 02/03/16 Status: Completed Flexeril 10 mg oral tablet 10 mg, PO, TID, PRN Muscle Spasm, X 5 day, # 20 tab, 0 Refill(s) Start Date: 02/03/16 Stop Date: 02/08/16 Status: Ordered ketOROLAC 60 mg, 2 mL, Route: IM, Drug form: INJ, ONCE, Dosing Weight 68.182, kg, Priority : STAT, Start date: 02/03/16 18:31:00 CDT, Stop date: 02/03/16 18:31:00 CDT Notes: (Same as:Toradol) IV bolus must be given >15 seconds. Give IM administration slowly and deeply into the muscle.Not for use > 4 days MEDICATION WASTE Product Size: 60 mgProduct Wasted: ___ mg Start Date: 02/03/16 Stop Date: 02/03/16 Status: Completed morphine Sulfate 4 mg, 2 mL, Route: IVP, Drug form: INJ, ONCE, Dosing Weight 68.182, kg, Start da te: 02/03/16 18:31:00 CDT, Stop date: 02/03/16 18:31:00 CDT Notes: (Same as:MORPhine Sulfate) Start Date: 02/03/16 Stop Date: 02/03/16 Status: Completed Naprosyn 500 mg oral tablet 500 mg=1 tab, PO, BID, PRN Pain, # 28 tab, 0 Refill(s) Start Date: 02/03/16 Stop Date: 02/17/16 Status: Ordered Tylenol with Codeine #3 oral tablet 1 - 2 tab, PO, Q4H, PRN Pain, X 5 day, # 24 tab, 0 Refill(s) Start Date: 02/03/16 Stop Date: 02/08/16 Status: Ordered Zofran ODT 4 mg, 1 tab, Route: PO, Drug form: TABDIS, ONCE, Dosing Weight 68.182, kg, Prior ity: STAT, Start date: 02/03/16 18:31:00 CDT, Stop date: 02/03/16 18:31:00 CDT Notes: (Same as: Zofran ODT) Start Date: 02/03/16 Stop Date: 02/03/16 Status: Completed Results URINE AND STOOL Most recent to 1 oldest [Reference Range]: UA Turbidity [Clear] Clear (02/03/16 8:07 PM) UA Color Ltyellow *NA* (02/03/16 8:07 PM) UA pH [5.0-8.0] 5.0 (02/03/16 8:07 PM) UA Spec Grav 1.012 [<=1.030] (02/03/16 8:07 PM) UA Glucose [Negative Negative mg/dL mg/dL] *NA* (02/03/16 8:07 PM) UA Blood [Negative] Small *ABN* (02/03/16 8:07 PM) UA Ketones [Negative Negative mg/dL mg/dL] *NA* (02/03/16 8:07 PM) UA Protein [Negative Negative mg/dL mg/dL] (02/03/16 8:07 PM) UA Urobilinogen <=1.0 mg/dL [0.1-1.0 mg/dL] *NA* (02/03/16 8:07 PM) UA Bili [Negative] Negative *NA* (02/03/16 8:07 PM) UA Leuk Est Negative [Negative] (02/03/16 8:07 PM) UA Nitrite Negative [Negative] (02/03/16 8:07 PM) UA WBC [0-5 /HPF] 3 /HPF (02/03/16 8:07 PM) UA RBC [0-2 /HPF] 3 /HPF *HI* (02/03/16 8:07 PM) UA Sq Epi [Few /LPF] Occasional /LPF *NA* (02/03/16 8:07 PM) UA Mucus [None Seen Few /LPF /LPF] *NA* (02/03/16 8:07 PM) Immunizations Vaccine Date Refusal Reason pneumococcal [...]
--- OUTSIDE RECORDS SUMMARY | 2018-11-07 11:53 | XMS REPORT ---
Author Author Barb Levin Organization [employer] Address Unknown Phone Unavailable Care Team Providers Care Technical Project Lead Name Role Phone Barb Levin CP Unavailable Allergies, Adverse Reactions, Alerts Substance Reaction Event Type pnc rash Drug Allergy Problems Problem Type Condition Code Onset Dates Condition Status Problem Gastroesophageal reflux disease without esophagitis K21.9 Active Problem Hypothyroidism, unspecified type E03.9 Active Problem Uncontrolled hypertension I10 Active Problem Uncontrolled type 2 diabetes mellitus without complication, without long- term current use of insulin E11.65 Active Assessment Influenza A J10.1 Active Problem Severe episode of recurrent major depressive disorder, without psychotic features F33.2 Active Problem Pure hypercholesterolemia E78.00 Active Medications Medication Code System Code Instructions Start Date End Date Status Dosage GlipiZIDE [facility] 11300869239 10 MG Orally twice a day (bid) Aug 14, 2014 Active 1 tablet Levemir [facility] 47190415227 100 UNIT/ML Subcutaneous Active not defined Tamiflu [facility] 99034141162 75 MG Orally Twice a day Active 1 capsule Losartan Potassium [facility] 99026650063 25 MG Orally Once a day Active 1 tablet Guaifenesin [facility] 92478576065 400 MG Orally every 4 hrs Active 1 tablet as needed Vital Signs Date/Time: Nov 21, 2017 BMI 25.23 Index Weight 147 lbs Height 64 in Temperature 98.2 F Blood Pressure Diastolic 75 mm Hg Blood Pressure Systolic 128 mm Hg Results No Known Results Summary Purpose eClinicalWorks Submission
--- OUTSIDE RECORDS SUMMARY | 2018-11-07 11:53 | XMS REPORT ---
Author Author Barb Levin Organization [employer] Address Unknown Phone Unavailable Care Team Providers Care Laboratory Chemical Assistant Name Role Phone Barb Levin CP Unavailable Allergies, Adverse Reactions, Alerts Substance Reaction Event Type pnc rash Drug Allergy Problems Problem Type Condition Code Onset Dates Condition Status Assessment Arthritis M19.90 Active Assessment Severe episode of recurrent major depressive disorder, without psychotic features F33.2 Active Assessment Uncontrolled type 2 diabetes mellitus without complication, without long-term current use of insulin E11.65 Active Problem Uncontrolled hypertension I10 Active Problem Gastroesophageal reflux disease without esophagitis K21.9 Active Problem Arthritis M19.90 Active Problem Pure hypercholesterolemia E78.00 Active Problem Uncontrolled type 2 diabetes mellitus without complication, without long- term current use of insulin E11.65 Active Problem Hypothyroidism, unspecified type E03.9 Active Problem Severe episode of recurrent major depressive disorder, without psychotic features F33.2 Active Medications Medication Code System Code Instructions Start Date End Date Status Dosage Magnesium NDC 0 Active not defined Tri-Chlor [facility] [place] [address]-01 Active not defined Tramadol HCl [facility] [place] [address]-14 50 MG Orally every 8 hrs Active 1 tablet as needed Levemir Flex touch [facility] [place] 18882344875 100 units intradermal bid Aug 14, 2018 February 10, 2019 Active 30 units Losartan Potassium [facility] [place] 76242535050 25 MG Orally Once a day Active 1 tablet Vitamin D3 [facility] [place] [address] Active not defined Cyclobenzaprine HCl [facility] [place] 74243697361 10 MG Orally Three times a day Active 1 tablet as needed Duloxetine HCl ND 40953742633 30 MG Orally Once a day Sep 11, 2018 Active 1 capsule Humalog KwikPen [facility] [place] 97957252541 200 UNIT/ML Subcutaneous tid Sep 11, 2018 Active 5 units NovoLog Flexpen [facility] [place] 91099520108 100 UNIT/ML Subcutaneous tid Aug 14, 2018 Active 5 units Albuterol Sulfate HFA [facility] [place] [address]-79 108 (90 Base) MCG/ACT Inhalation every 4 hrs as needed Nov 25, 2017 Active 2 puffs as needed Levemir [facility] [place] 55854839649 100 UNIT/ML Subcutaneous twice a day Active 20- 25 units Vital Signs Date/Time: Sep 11, 2018 BMI 26.26 Index Weight 153 lbs Height 64 in Temperature 98.3 F Blood Pressure Diastolic 69 mm Hg Blood Pressure Systolic 115 mm Hg Results No Known Results Summary Purpose eClinicalWorks Submission
--- OUTSIDE RECORDS SUMMARY | 2018-11-07 11:53 | XMS REPORT | Summary of Care ---
Author Author [facility] Organization [facility] Address Unknown Phone Unavailable Encounter HQ Ace(FIN) [id number] Date(s): 11/17/17 - 11/17/17 [facility] [address] [place] [address]- [phone] Encounter Diagnosis Acute bronchitis, viral (Discharge Diagnosis) - 11/17/17 Myalgia (Discharge Diagnosis) - 11/17/17 Acute bronchitis due to other specified organisms (Final) - 11/22/17 Myalgia (Final) - Type 2 diabetes mellitus without complications (Final) - Major depressive disorder, single episode, unspecified (Final) - Hyperlipidemia, unspecified (Final) - Nicotine dependence, cigarettes, uncomplicated (Final) - Discharge Disposition: Home or Self Care Attending Physician: Mirta Brooks DO Vital Signs 1 2 3 Most recent to oldest [Reference Range]: 162.56 cm (11/17/17 1:12 AM) Height 99.4 DegF *HI* (11/17/17 1:12 AM) Temperature Oral [96.4-99.1 DegF] 107/45 mmHg (11/17/17 4:32 AM) 124/48 mmHg (11/17/17 3:04 AM) 126/70 mmHg (11/17/17 1:12 AM) Blood Pressure [90-140/60-90 mmHg] 22 BRMIN *HI* (11/17/17 4:32 AM) 20 BRMIN (11/17/17 3:04 AM) 20 BRMIN (11/17/17 1:12 AM) Respiratory Rate [14-20 BRMIN] 94 bpm (11/17/17 4:32 AM) 105 bpm *HI* (11/17/17 3:04 AM) 109 bpm *HI* (11/17/17 1:12 AM) Peripheral Pulse Rate [60-100 bpm] 65.909 kg (11/17/17 1:12 AM) Weight 24.94 m2 (11/17/17 1:12 AM) Body Mass Index Problem List Condition Effective Dates Status Health Status Informant Depression(Confirmed Active ) DM - Diabetes Active mellitus(Confirmed) Hyperlipemia(Confirm Active ed) Hypothyroidism(Confi Active rmed) Allergies, Adverse Reactions, Alerts Substance Reaction Severity Status penicillin Active Medications Sodium Chloride 0.9% (Bolus) IV 1,000 mL, Infuse Over: 1 hr, Route: IV, ONCE, Priority: STAT, Dosing Weight 65.9 09 kg, Start date: 11/17/17 2:45:00 DIRECTOR OF COUNSELING, Stop date: 11/17/17 2:45:00 DIRECTOR OF COUNSELING Start Date: 11/17/17 Stop Date: 11/17/17 Status: Completed Results ELECTROLYTES Most recent to 1 oldest [Reference Range]: Sodium Lvl [135-145 132 mEq/L mEq/L] *LOW* (11/17/17 2:55 AM) Potassium Lvl 4.1 mEq/L [3.5-5.1 mEq/L] (11/17/17 2:55 AM) Chloride Lvl [95-109 98 mEq/L mEq/L] (11/17/17 2:55 AM) CO2 [24-32 mEq/L] 26 mEq/L (11/17/17 2:55 AM) AGAP [10.0-20.0 12.1 mEq/L mEq/L] (11/17/17 2:55 AM) CHEM PANEL Most recent to 1 oldest [Reference Range]: Creatinine Lvl 0.72 mg/dL [0.50-1.40 mg/dL] (11/17/17 2:55 AM) eGFR 89 mL/min/1.73m2 1 *NA* (11/17/17 2:55 AM) BUN [7-22 mg/dL] 13 mg/dL (11/17/17 2:55 AM) B/C Ratio [6-25] 18 (11/17/17 2:55 AM) Glucose Lvl [70-99 282 mg/dL mg/dL] *HI* (11/17/17 2:55 AM) Total Protein 7.3 g/dL [6.4-8.4 g/dL] (11/17/17 2:55 AM) Albumin Lvl [3.5-5.0 3.5 g/dL g/dL] (11/17/17 2:55 AM) Globulin [2.7-4.2 3.8 g/dL g/dL] (11/17/17 2:55 AM) A/G Ratio [0.7-1.6] 0.9 (11/17/17 2:55 AM) Calcium Lvl 8.2 mg/dL [8.5-10.5 mg/dL] *LOW* (11/17/17 2:55 AM) ALT [0-65 unit/L] 30 unit/L (11/17/17 2:55 AM) AST [0-37 unit/L] 17 unit/L (11/17/17 2:55 AM) Alk Phos [39-136 80 unit/L unit/L] (11/17/17 2:55 AM) Bili Total [0.2-1.3 0.8 mg/dL mg/dL] (11/17/17 2:55 AM) Lipase Lvl [73-393 72 unit/L unit/L] *LOW* (11/17/17 2:55 AM) 1Result Comment: The eGFR is calculated [...] Most recent to 1 oldest [Reference Range]: Total CK [12-191 129 unit/L unit/L] (11/17/17 2:55 AM) CK MB [0.5-3.6 <0.5 ng/mL ng/mL] (11/17/17 2:55 AM) CK MB Index <0.4 [0.0-2.5] (11/17/17 2:55 AM) Troponin-I <0.02 ng/mL [0.00-0.40 ng/mL] (11/17/17 2:55 AM) URINE AND STOOL Most recent to 1 oldest [Reference Range]: UA Turbidity [Clear] Clear (11/17/17 2:55 AM) UA Color [Yellow] Yellow *NA* (11/17/17 2:55 AM) UA pH [5.0-8.0] 5.0 (11/17/17 2:55 AM) UA Spec Grav 1.015 [<=1.030] (11/17/17 2:55 AM) UA Glucose [Negative 500 mg/dL mg/dL] *ABN* (11/17/17 2:55 AM) UA Blood [Negative] Small *ABN* (11/17/17 2:55 AM) UA Ketones [Negative Trace mg/dL mg/dL] *ABN* (11/17/17 2:55 AM) UA Protein [Negative Negative mg/dL mg/dL] (11/17/17 2:55 AM) UA Urobilinogen <=1.0 mg/dL [0.1-1.0 mg/dL] *NA* (11/17/17 2:55 AM) UA Bili [Negative] Negative *NA* (11/17/17 2:55 AM) UA Leuk Est Negative [Negative] (11/17/17 2:55 AM) UA Nitrite Positive [Negative] *ABN* (11/17/17 2:55 AM) UA WBC [0-5 /HPF] 4 /HPF (11/17/17 2:55 AM) UA RBC [0-2 /HPF] 2 /HPF (11/17/17 2:55 AM) UA Bacteria [None Moderate /HPF Seen /HPF] *ABN* (11/17/17 2:55 AM) UA Sq Epi [Few /LPF] Occasional /LPF *NA* (11/17/17 2:55 AM) HEMATOLOGY Most recent to 1 oldest [Reference Range]: WBC [3.7-10.4 K/CMM] 7.4 K/CMM (11/17/17 2:55 AM) RBC [4.20-5.40 4.25 M/CMM M/CMM] (11/17/17 2:55 AM) Hgb [12.0-16.0 g/dL] 13.0 g/dL (11/17/17 2:55 AM) Hct [36.0-48.0 %] 37.0 % (11/17/17 2:55 AM) MCV [80.0-98.0 fL] 87.0 fL (11/17/17 2:55 AM) MCH [27.0-31.0 pg] 30.6 pg (11/17/17 2:55 AM) MCHC [32.0-36.0 35.2 g/dL g/dL] (11/17/17 2:55 AM) RDW [11.5-14.5 %] 12.6 % (11/17/17 2:55 AM) MPV [7.4-10.4 fL] 9.5 fL (11/17/17 2:55 AM) Platelet [133-450 177 K/CMM K/CMM] (11/17/17 2:55 AM) Segs [45.0-75.0 %] 72.6 % (11/17/17 2:55 AM) Lymphocytes 13.2 % [20.0-40.0 %] *LOW* (11/17/17 2:55 AM) Monocytes [2.0-12.0 13.7 % %] *HI* (11/17/17 2:55 AM) Eosinophils [0.0-4.0 0.1 % %] (11/17/17 2:55 AM) Basophils [0.0-1.0 0.4 % %] (11/17/17 2:55 AM) Segs-Bands # 5.4 K/CMM [1.5-8.1 K/CMM] (11/17/17 2:55 AM) Lymphocytes # 1.0 K/CMM [1.0-5.5 K/CMM] (11/17/17 2:55 AM) Monocytes # [0.0-0.8 1.0 K/CMM K/CMM] *HI* (11/17/17 2:55 AM) VIRAL - SEROLOGY Most recent to 1 oldest [Reference Range]: Influ A [Negative] Negative (11/17/17 2:55 AM) Influ B [Negative] Negative (11/17/17 2:55 AM) Immunizations Given and Recorded Vaccine Date Status Refusal Reason pneumococcal 23-valent vaccine 08/15/13 Given pneumococcal 23-valent vaccine 12/19/06 Given Procedures Procedure Date Related Diagnosis Body Site Status Cholecystectomy Completed Hysterectomy Completed Operation on neck Completed Operative procedure on wrist1 Completed Procedure on back2 Completed Transposition of ulnar nerve at elbow3 Completed 1cyst removal - left 2"bulging disc" 3left Social History Social History Type Response Alcohol Current, Frequency: 1-2 times per month. Smoking Status Current every day smoker; Exposure to Tobacco Smoke None; Cigarette Smoking Last 365 Days Yes; Reg Smoking Cessation Counseling No entered on: 11/21/17 Assessment and Plan No data available for this section
--- OUTSIDE RECORDS SUMMARY | 2018-11-07 11:53 | XMS REPORT ---
Author Author Barb Levin Organization [employer] Address Unknown Phone Unavailable Care Team Providers Care Museum Librarian Name Role Phone Barb Levin CP Unavailable [...] Start Date End Date Status Dosage Azithromycin [facility] 47161081899 250 MG Orally Once a day Nov 22, 2017 Active 2 tablets on the first day, then 1 tablet daily for 4 days Results No Known Results Summary Purpose eClinicalWorks Submission
--- OUTSIDE RECORDS SUMMARY | 2018-11-07 11:53 | XMS REPORT | Summary of Care ---
Author Author [facility] Address Unknown Phone Unavailable Encounter KAYLYN Bello(TOMAS) [id number] Date(s): 02/20/16 - 03/20/16 [facility] Discharge Disposition: Home Attending Physician: Wang Aaron Vital Signs No data available for this [...]
--- OUTSIDE RECORDS SUMMARY | 2018-11-07 11:53 | XMS REPORT | Summary of Care ---
Author Author [facility] Organization [facility] Address Unknown Phone Unavailable Encounter [employer] Ace(FIN) [phone] Date(s): 11/21/17 - 11/22/17 [facility] [address] [place] [address]- [phone] Encounter Diagnosis Dehydration (Final) - 11/25/17 Influenza due to other identified influenza virus with other respiratory manifes tations (Final) - Type 2 diabetes mellitus without complications (Final) - Anorexia (Final) - Hypothyroidism, unspecified (Final) - Pure hypercholesterolemia, unspecified (Final) - prison (current) use of insulin (Final) - Discharge Disposition: Home or Self Care Attending Physician: Barb Levin MD Admitting Physician: Barb Levin MD Vital Signs 1 2 3 Most recent to oldest [Reference Range]: 162.56 cm (11/21/17 6:47 PM) Height 97.9 DegF (11/22/17 4:32 PM) 97.9 DegF (11/22/17 1:31 PM) 98.6 DegF (11/22/17 7:15 AM) Temperature Oral [96.4-99.1 DegF] 120/73 mmHg (11/22/17 4:32 PM) 125/71 mmHg (11/22/17 1:31 PM) 117/64 mmHg (11/22/17 7:15 AM) Blood Pressure [90-140/60-90 mmHg] 16 BRMIN (11/22/17 4:32 PM) 18 BRMIN (11/22/17 1:31 PM) 18 BRMIN (11/22/17 7:15 AM) Respiratory Rate [14-20 BRMIN] 66 bpm (11/22/17 4:32 PM) 66 bpm (11/22/17 1:31 PM) 65 bpm (11/22/17 7:15 AM) Peripheral Pulse Rate [60-100 bpm] 67 kg (11/21/17 6:47 PM) Weight 25.35 m2 (11/21/17 6:47 PM) Body Mass Index Problem List Condition Effective Dates Status Health Status Informant Depression(Confirmed Active ) DM - Diabetes Active mellitus(Confirmed) Hyperlipemia(Confirm Active ed) Hypothyroidism(Confi Active rmed) Allergies, Adverse Reactions, Alerts Substance Reaction Severity Status penicillin Active Medications acetaminophen 650 mg, 2 tab, Route: PO, Drug form: TAB, Q4H, Dosing Weight 65.909, kg, PRN Lily n 1-3/Temp > 100.4 F, Start date: 11/21/17 18:40:00 TANK WORKER, Duration: 30 day, Stop date: 12/21/17 18:39:00 TANK WORKER Notes: Do not exceed 4 gm/day. (Same as: Tylenol) Start Date: 11/21/17 Stop Date: 11/22/17 Status: Discontinued aspirin 81 mg, PO, Daily, 0 Refill(s) Start Date: 11/21/17 Status: Ordered atorvastatin 80 mg oral tablet 40 mg=0.5 tab, PO, Daily, 0 Refill(s) Start Date: 11/21/17 Status: Ordered azithromycin + Sodium Chloride 0.9% IV 250 mL 500 mg, Route: IVPB, [id number], Dosing Weight 65.909, kg, Start date: 11/21/17 19: 00:00 TANK WORKER, Duration: 5 day, Stop date: 11/25/17 19:00:00 TANK WORKER, ABX Indication: No n-PNA Respiratory Tract Infection Notes: (Same As: Zithromax IV) Start Date: 11/21/17 Stop Date: 11/22/17 Status: Discontinued azithromycin 250 mg oral tablet See Instructions, Take 2 tablets by mouth the first day then 1 tablet by mouth d aily on days 2-5., X 5 day, # 6 tab, 0 Refill(s), other Start Date: 11/22/17 Stop Date: 11/27/17 Status: Completed Dextrose 50% Syringe 12.5 gm, 25 mL, Route: IVP, Drug Form: INJ, Dosing Weight 65.909, kg, PRN, PRN B lood Glucose Results, Start date: 11/21/17 18:42:00 TANK WORKER, Duration: 30 day, Stop date: 12/21/17 18:41:00 TANK WORKER Start Date: 11/21/17 Stop Date: 11/22/17 Status: Discontinued Dextrose 50% Syringe 25 gm, 50 mL, Route: IVP, Drug Form: INJ, Dosing Weight 65.909, kg, PRN, PRN Blo od Glucose Results, Start date: 11/21/17 18:42:00 TANK WORKER, Duration: 30 day, Stop da te: 12/21/17 18:41:00 TANK WORKER Start Date: 11/21/17 Stop Date: 11/22/17 Status: Discontinued enoxaparin 40 mg, 0.4 mL, Route: SUB-Q, Drug form: INJ, [id number], Dosing Weight 65.909, kg, Start date: 11/21/17 19:00:00 TANK WORKER, Stop date: 12/20/17 19:00:00 TANK WORKER Notes: (Same as: Lovenox) Start Date: 11/21/17 Stop Date: 11/22/17 Status: Discontinued glipiZIDE 5 mg oral tablet 5 mg=1 tab, PO, BID, 0 Refill(s) Start Date: 11/21/17 Status: Ordered glucagon 1 mg, Route: IM, Drug form: PDR/INJ, PRN, Dosing Weight 65.909, kg, PRN Blood Gl ucose Results, Start date: 11/21/17 18:42:00 TANK WORKER, Duration: 30 day, Stop date: 0 12/21/17 18:41:00 TANK WORKER Start Date: 11/21/17 Stop Date: 11/22/17 Status: Discontinued insulin detemir 10 unit, SUB-Q, BID, 0 Refill(s) Start Date: 11/21/17 Status: Ordered insulin lispro 3 unit, 0.03 mL, Route: SUB-Q, Drug form: SOLN, Bedtime, Dosing Weight 65.909, k g, PRN Blood Glucose Results, Start date: 11/21/17 18:42:00 TANK WORKER, Duration: 30 da y, Stop date: 12/21/17 18:41:00 TANK WORKER Notes: Roll in palms of hands gently; Do not shake `vigorously. (Same as: Frannie swan )"Single Patient Use Only "WASTE: F/P - Black; E - Municipal Trash Bin Stabl e for 28 days at room temperature.Expires in days from Date Start Date: 11/21/17 Stop Date: 11/22/17 Status: Discontinued insulin lispro 4 unit, 0.04 mL, Route: SUB-Q, Drug form: SOLN, Bedtime, Dosing Weight 65.909, k g, PRN Blood Glucose Results, Start date: 11/21/17 18:42:00 TANK WORKER, Duration: 30 da y, Stop date: 12/21/17 18:41:00 TANK WORKER Notes: Roll in palms of hands gently; Do not shake `vigorously. (Same as: Frannie swan )"Single Patient Use Only "WASTE: F/P - Black; E - Municipal Trash Bin Stabl e for 28 days at room temperature.Expires in days from Date Start Date: 11/21/17 Stop Date: 11/22/17 Status: Discontinued insulin lispro 2 unit, 0.02 mL, Route: SUB-Q, Drug form: SOLN, Bedtime, Dosing Weight 65.909, k g, PRN Blood Glucose Results, Start date: 11/21/17 18:42:00 TANK WORKER, Duration: 30 da y, Stop date: 12/21/17 18:41:00 TANK WORKER Notes: Roll in palms of hands gently; Do not shake `vigorously. (Same as: Frannie swan )"Single Patient Use Only "WASTE: F/P - Black; E - Municipal Trash Bin Stabl e for 28 days at room temperature.Expires in days from Date Start Date: 11/21/17 Stop Date: 11/22/17 Status: Discontinued insulin lispro 1 unit, 0.01 mL, Route: SUB-Q, Drug form: SOLN, Bedtime, Dosing Weight 65.909, k g, PRN Blood Glucose Results, Start date: 11/21/17 18:42:00 TANK WORKER, Duration: 30 da y, Stop date: 12/21/17 18:41:00 TANK WORKER Notes: Roll in palms of hands gently; Do not shake `vigorously. ([facility]: [facility] )"Single Patient Use Only "WASTE: F/P - Black; E - Municipal Trash Bin Stabl e for 28 days at room temperature.Expires in days from Date Start Date: 11/21/17 Stop Date: 11/22/17 Status: Discontinued insulin lispro 8 unit, 0.08 mL, Route: SUB-Q, Drug form: SOLN, TID-Before Meals, Dosing Weight 65.909, kg, PRN Blood Glucose Results, Start date: 11/21/17 18:42:00 TANK WORKER, Durati on: , Stop date: 12/21/17 18:41:00 TANK WORKER Notes: Roll in palms of hands gently; Do not shake `vigorously. (Same as: [facility] )"Single Patient Use Only "WASTE: F/P - Black; E - Municipal Trash Bin Stabl e for 28 days at room temperature.Expires in days from Date Start Date: 11/21/17 Stop Date: 11/22/17 Status: Discontinued insulin lispro 10 unit, 0.1 mL, Route: SUB-Q, Drug form: SOLN, TID-Before Meals, Dosing Weight 65.909, kg, PRN Blood Glucose Results, Start date: 11/21/17 18:42:00 TANK WORKER, Durati on: , Stop date: 12/21/17 18:41:00 TANK WORKER Notes: Roll in palms of hands gently; Do not shake `vigorously. (Same as: [facility] )"Single Patient Use Only "WASTE: F/P - Black; E - Municipal Trash Bin Stabl e for 28 days at room temperature.Expires in days from Date Start Date: 11/21/17 Stop Date: 11/22/17 Status: Discontinued insulin lispro 4 unit, 0.04 mL, Route: SUB-Q, Drug form: SOLN, TID-Before Meals, Dosing Weight 65.909, kg, PRN Blood Glucose Results, Start date: 11/21/17 18:42:00 TANK WORKER, Durati on: 30 day, Stop date: 12/21/17 18:41:00 TANK WORKER Notes: Roll in palms of hands gently; Do not shake `vigorously. (Same as: Frannie og )"Single Patient Use Only "WASTE: F/P - Black; E - Municipal Trash Bin Stabl e for 28 days at room temperature.Expires in days from Date Start Date: 11/21/17 Stop Date: 11/22/17 Status: Discontinued insulin lispro 6 unit, 0.06 mL, Route: SUB-Q, Drug form: SOLN, TID-Before Meals, Dosing Weight 65.909, kg, PRN Blood Glucose Results, Start date: 11/21/17 18:42:00 TANK WORKER, Durati on: 30 day, Stop date: 12/21/17 18:41:00 TANK WORKER Notes: Roll in palms of hands gently; Do not shake `vigorously. (Same as: [facility] )"Single Patient Use Only "WASTE: F/P - Black; E - Municipal Trash Bin Stabl e for 28 days at room temperature.Expires in days from Date Start Date: 11/21/17 Stop Date: 11/22/17 Status: Discontinued insulin lispro 2 unit, 0.02 mL, Route: SUB-Q, Drug form: SOLN, TID-Before Meals, Dosing Weight 65.909, kg, PRN Blood Glucose Results, Start date: 11/21/17 18:42:00 TANK WORKER, Durati on: 30 day, Stop date: 12/21/17 18:41:00 TANK WORKER Notes: Roll in palms of hands gently; Do not shake `vigorously. (Same as: [facility] )"Single Patient Use Only "WASTE: F/P - Black; E - Municipal Trash Bin Stabl e for 28 days at room temperature.Expires in days from Date Start Date: 11/21/17 Stop Date: 11/22/17 Status: Discontinued losartan 25 mg oral tablet 25 mg=1 tab, PO, Daily, 0 Refill(s) Start Date: 11/21/17 Status: Ordered ondansetron 4 mg, 2 mL, Route: IVP, Drug form: INJ, Q6H, Dosing Weight 65.909, kg, PRN Nause a & Vomiting, Start date: 11/21/17 18:40:00 TANK WORKER, Duration: 30 day, Stop date: 12/21/17 18:39:00 TANK WORKER Notes: (Same as: Lorelei) MEDICATION WASTE Product Size: 4 mgProduct Was anna: ___ mg Start Date: 11/21/17 Stop Date: 11/22/17 Status: Discontinued oseltamivir 75 mg oral capsule 75 mg=1 cap, PO, [id number], 0 Refill(s) Start Date: 11/22/17 Status: Ordered predniSONE 40 mg, 2 tab, Route: PO, Drug form: TAB, Daily, Dosing Weight 65.909, kg, Start date: 11/22/17 9:00:00 TANK WORKER, Duration: 30 day, Stop date: 12/21/17 9:00:00 TANK WORKER Notes: Take with food. Start Date: 11/22/17 Stop Date: 11/22/17 Status: Discontinued predniSONE 20 mg oral tablet 40 mg=2 tab, PO, Daily, 0 Refill(s) Start Date: 11/22/17 Status: Ordered Robitussin 200 mg, 10 mL, Route: PO, Drug Form: LIQ, Dosing Weight 67, kg, Q6H, PRN Cough, Start date: 11/21/17 21:49:00 TANK WORKER, Duration: 30 day, Stop date: 12/21/17 21:48:0 0 TANK WORKER Notes: (Same as: Robitussin) Start Date: 11/21/17 Stop Date: 11/22/17 Status: Discontinued Saline Flush 0.9% 10 ml, Route: IVP, Drug Form: INJ, Dosing Weight 65.909, kg, PRN, PRN Line Flush , Start date: 11/21/17 18:40:00 TANK WORKER, Duration: 30 day, Stop date: 12/21/17 18:39 :00 TANK WORKER Notes: (Same as: BD Posiflush) Start Date: 11/21/17 Stop Date: 11/22/17 Status: Discontinued sertraline 50 mg, PO, Daily, 0 Refill(s) Start Date: 11/21/17 Status: Ordered Sodium Chloride 0.9% IV 1,000 mL 1,000 mL, Rate: 125 ml/hr, Infuse over: 8 hr, Route: IV, Dosing Weight 65.909 kg , Total Volume: 1,000, Start date: 11/21/17 18:40:00 TANK WORKER, Duration: 30 day, Stop date: 12/21/17 18:39:00 TANK WORKER, 1.74, m2 Start Date: 11/21/17 Stop Date: 11/22/17 Status: Discontinued Sodium Chloride 0.9% IV 1,000 mL 1,000 mL, Rate: 75 ml/hr, Infuse over: 13.3 hr, Route: IV, Dosing Weight 67 kg, Total Volume: 1,000, Start date: 11/22/17 8:43:00 TANK WORKER, Duration: 30 day, Stop da te: 12/22/17 8:42:00 TANK WORKER, 1.76, m2 Start Date: 11/22/17 Stop Date: 11/22/17 Status: Discontinued TamiFLU 75 mg, 1 cap, Route: PO, Drug form: CAP, [id number], Dosing Weight 65.909, kg, CrCl > 60 ml/min, Start date: 11/21/17 19:00:00 TANK WORKER, Duration: 5 day, Stop date: 11/26/17 7:00:00 TANK WORKER Notes: Take with food.Same as: Tamiflu) Start Date: 11/21/17 Stop Date: 11/22/17 Status: Discontinued Results ELECTROLYTES Most recent to 1 oldest [Reference Range]: Sodium Lvl [135-145 138 mEq/L mEq/L] (11/21/17 6:48 PM) Potassium Lvl 3.9 mEq/L [3.5-5.1 mEq/L] (11/21/17 6:48 PM) Chloride Lvl [95-109 104 mEq/L mEq/L] (11/21/17 6:48 PM) CO2 [24-32 mEq/L] 29 mEq/L (11/21/17 6:48 PM) AGAP [10.0-20.0 8.9 mEq/L mEq/L] *LOW* (11/21/17 6:48 PM) CHEM PANEL Most recent to 1 oldest [Reference Range]: Creatinine Lvl 0.59 mg/dL [0.50-1.40 mg/dL] (11/21/17 6:48 PM) eGFR 97 mL/min/1.73m2 1 *NA* (11/21/17 6:48 PM) BUN [7-22 mg/dL] 10 mg/dL (11/21/17 6:48 PM) B/C Ratio [6-25] 17 (11/21/17 6:48 PM) Glucose Lvl [70-99 193 mg/dL mg/dL] *HI* (11/21/17 6:48 PM) Total Protein 7.2 g/dL [6.4-8.4 g/dL] (11/21/17 6:48 PM) Albumin Lvl [3.5-5.0 3.3 g/dL g/dL] *LOW* (11/21/17 6:48 PM) Globulin [2.7-4.2 3.9 g/dL g/dL] (11/21/17 6:48 PM) A/G Ratio [0.7-1.6] 0.8 (11/21/17 6:48 PM) Calcium Lvl 8.3 mg/dL [8.5-10.5 mg/dL] *LOW* (11/21/17 6:48 PM) ALT [0-65 unit/L] 20 unit/L (11/21/17 6:48 PM) AST [0-37 unit/L] 10 unit/L (11/21/17 6:48 PM) Alk Phos [39-136 79 unit/L unit/L] (11/21/17 6:48 PM) Bili Total [0.2-1.3 0.5 mg/dL mg/dL] (11/21/17 6:48 PM) 1Result Comment: The eGFR is calculated [...] be mul tiplied by the estimated BMI. SPECIAL CHEMISTRY Most recent to 1 oldest [Reference Range]: Hgb A1C [<=5.6 %] 10.3 % *HI* (11/21/17 6:48 PM) HEMATOLOGY Most recent to 1 oldest [Reference Range]: WBC [3.7-10.4 K/CMM] 7.8 K/CMM (11/21/17 6:48 PM) RBC [4.20-5.40 4.06 M/CMM M/CMM] *LOW* (11/21/17 6:48 PM) Hgb [12.0-16.0 g/dL] 12.5 g/dL (11/21/17 6:48 PM) Hct [36.0-48.0 %] 35.4 % *LOW* (11/21/17 6:48 PM) MCV [80.0-98.0 fL] 87.2 fL (11/21/17 6:48 PM) MCH [27.0-31.0 pg] 30.8 pg (11/21/17 6:48 PM) MCHC [32.0-36.0 35.3 g/dL g/dL] (11/21/17 6:48 PM) RDW [11.5-14.5 %] 12.5 % (11/21/17 6:48 PM) MPV [7.4-10.4 fL] 8.6 fL (11/21/17 6:48 PM) Platelet [133-450 242 K/CMM K/CMM] (11/21/17 6:48 PM) Segs [45.0-75.0 %] 53.0 % (11/21/17 6:48 PM) Lymphocytes 33.9 % [20.0-40.0 %] (11/21/17 6:48 PM) Monocytes [2.0-12.0 11.5 % %] (11/21/17 6:48 PM) Eosinophils [0.0-4.0 1.0 % %] (11/21/17 6:48 PM) Basophils [0.0-1.0 0.6 % %] (11/21/17 6:48 PM) Segs-Bands # 4.2 K/CMM [1.5-8.1 K/CMM] (11/21/17 6:48 PM) Lymphocytes # 2.7 K/CMM [1.0-5.5 K/CMM] (11/21/17 6:48 PM) Monocytes # [0.0-0.8 0.9 K/CMM K/CMM] *HI* (11/21/17 6:48 PM) Eosinophils # 0.1 K/CMM [0.0-0.5 K/CMM] (11/21/17 6:48 PM) Immunizations Given and Recorded Vaccine Date [...] No entered on: 11/21/17 Assessment and Plan Extracted from: Title: Clinical Document Author: Barb Levin MD Date: 11/22/17 Attending: Barb Levin MDPhone: Service: Internal Medicine Code status: Full Code [Ordered] Reason for Admission: FLU Working DRG: None Documented Isolation: Contact & Droplet [Ordered] Consulting Physicians: Barb Levin MDOffice: Service: Medicine DOA: 11/21/2017 DOD: 11/22/2017 Discharge diagnosis: Dehydration (E86.0) Type 2 diabetes mellitus without complications (E11.9) Influenza due to other identified influenza virus with other respiratory manifestations (J10.1) Anorexia (R63.0) Activity: No restrictions Diet: Carbohydrate Controlled Diet Activity: No restrictions Follow Up When: As Needed Reason for Follow Up: As Needed Notify your physician if: fever, chills, worsening cough, or SOB. Follow up with PCP in 1 week. Procedures: None History of present illness: Patient, with hx of DM, was admitted due to dehydration and poor oral intake due to influenza A and acute tracheobrnchitis. She was hydrated with IVF. She improved over the next 24 hours and was able to tolerate diet. Home meds were continued. She was discharged home on Azithromycin to complete course and on home medications. Extracted from: Title: Clinical Document Author: Barb Levin MD Date: 11/22/17 Medicine Progress Daily Chief Complaint: Influenza A, profound weakness, dehydration Subjective & Interval history: Patient seen and examined. Complains of severe cough and weakness. Objective: Vital Signs (last 24 hrs) Last Charted Temp Oral98.6 DegF (NOV 22 07:15) Heart Rate Rpttofcmck28 bpm (NOV 22:15) Resp Rate 18 BRMIN (NOV 22:) VWZ253 mmHg (NOV 22:15) DBP64 mmHg (NOV 22:15) CaT254 % (NOV 22:15) Tbjbvf38 kg (NOV 21 18:47) Wuhfrb718.56 cm (NOV 21 18:47) BMI25.35 (NOV 21:47) Medications and labs reviewed as below. PHYSICAL EXAM: GENERAL: AAO NAD, coughing HEENT: NCAT, perrl, eomi NECK: Supple, midline trachea LUNGS: CTAB, No rales, rhonchi or wheezes. CARDIOVASCULAR: S1, S2 normal. No M/G/R. ABDOMEN: Soft, ND, NT. BS + EXTREMITIES: No C/C , or Edema SKIN: No rashes. MUSCULOSKELETAL: Moving all extremities. Neuro: No new motor or sensory deficits IMPRESSION: Influenza A Profound weakness Diabetes mellitus Dehydration Fall risk PLAN & TREATMENT Reduce IV fluid rate Oral intake has improved this morning Encourage ambulation Continue home medications Plan to discharge later today For details see orders. Plan of care discussed with the patient Disposition: Input/Output RecordInOutBal 10/2923hr Tot 2043 0 10/2823hr Tot 0 0 0 Scheduled Meds (4):azithromycin + Sodium Chloride 0.9% IV 250 mL, enoxaparin, oseltamivir (TamiFLU), predniSONE Unscheduled Meds: None PRN Meds (16):Dextrose 50% in Water IV (Dextrose 50% Syringe), Dextrose 50% in Water IV (Dextrose 50% Syringe), acetaminophen, glucagon, guaiFENesin (Robitussin), insulin lispro, insulin lispro, insulin lispro, insulin lispro, insulin lispro, insulin lispro, insulin lispro, insulin lispro, insulin lispro, ondansetron, sodium chloride (Saline Flush 0.9%) One Time Meds: None Continuous Infusions (1):Sodium Chloride 0.9% IV 1,000 mL Labs (Last four charted values) WBC 7.8(NOV 21) Hgb 12.5(NOV 21) Hct L 35.4(NOV 21) Plt 242(NOV 21) Na 138(NOV 21) K 3.9(NOV 21) CO2 29(NOV 21) Cl 104(NOV 21) Cr 0.59(NOV 21) BUN 10(NOV 21) Glucose Random H 193(NOV 21) Ca L 8.3(NOV 21) Extracted from: Title: Clinical Document Author: Barb Levin MD Date: 11/21/17 Chart reveiwed. Patient seen and examined. WIll continue to follow. [id number]
--- OUTSIDE RECORDS SUMMARY | 2018-11-07 11:53 | XMS REPORT ---
Author Author Barb Levin Organization [employer] Address Unknown Phone Unavailable Care Team Providers Care Laborer Cheesemaking Name Role Phone Barb Levin CP Unavailable Allergies, Adverse Reactions, Alerts Substance Reaction Event Type pnc rash Drug Allergy Encounters Encounter Location Date new pt /[place] Dec 14, 2016 Problems Problem Type Condition ICD-9 Code Onset Dates Condition Status Assessment Pure hypercholesterolemia E78.00 Active Assessment Gastroesophageal reflux disease without esophagitis K21.9 Active Assessment Uncontrolled type 2 diabetes mellitus without complication, without long-term current use of insulin E11.65 Active Problem Hypothyroidism, unspecified type E03.9 Active Problem Uncontrolled type 2 diabetes mellitus without complication, without long- term current use of insulin E11.65 Active Problem Gastroesophageal reflux disease without esophagitis K21.9 Active Problem Uncontrolled hypertension I10 Active Assessment Encounter to establish care Z76.89 Active Problem Pure hypercholesterolemia E78.00 Active Problem Severe episode of recurrent major depressive disorder, without psychotic features F33.2 Active Assessment Uncontrolled hypertension I10 Active Assessment Severe episode of recurrent major depressive disorder, without psychotic features F33.2 Active Assessment Acute non intractable tension-type headache G44.209 Active Assessment Hypothyroidism, unspecified type E03.9 Active Medications Medication Code System Code Instructions Start Date End Date Status Dosage Synthroid [facility] [address]-65 50 MCG Orally Once a day Oct 02, 2014 Active 1 tablet Westcort [facility] [address]-93 0.2 % Externally Once a day April 02, 2015 Active 1 application to affected area Lipitor [facility] [address]-78 40 mg Orally Once a day Aug 14, 2014 Active 1 tablet Wellbutrin [facility] [address]-11 100 mg Orally Twice a day March 19, 2015 Active 1 tablet Lisinopril [facility] [address]-31 10 MG Orally Once a day Dec 14, 2016 Active 1 tablet Nexium [facility] [address]-38 20 MG Orally Once a day March 19, 2015 Active 1 capsule GlipiZIDE [facility] [address]-66 5 MG Orally twice a day (bid) Aug 14, 2014 Active 1 tablet Synthroid [facility] [address]-13 25 MCG Orally Once a day May 29, 2014 Active 1 tablet on an empty stomach in the morning Social History Social History Element Qualifiers Date Reported Tobacco Use: . Are you a: current smoker Dec 14, 2016 Use of recreational / street drugs? . Answer: No Dec 14, 2016 Do you have pets? . Status: No Dec 14, 2016 Caffeine intake? . Status: No Dec 14, 2016 Do you exercise? . Answer: Yes, Type: swimming Dec 14, 2016 Do you drink alcohol? . Status: Yes, Type: Socially Dec 14, 2016 Travel outside [place]: . no Dec 14, 2016 Occupation: . disability Dec 14, 2016 Vital Signs Date/Time: Dec 14, 2016 Weight 147 lbs Height 64 in Temperature 96.7 F Blood Pressure Diastolic 89 mm Hg Blood Pressure Systolic 150 mm Hg Summary Purpose [employer] Submission
--- OUTSIDE RECORDS SUMMARY | 2018-11-07 11:53 | XMS REPORT ---
Author Author Barb Levin Organization [employer] Address Unknown Phone Unavailable Care Team Providers Care Linotype Machinist Name Role Phone Barb Levin CP Unavailable Allergies No Known Allergies Problems Problem Type Condition Code Onset Dates Condition Status Problem Uncontrolled hypertension I10 Active Problem Gastroesophageal reflux disease without esophagitis K21.9 Active Problem Arthritis M19.90 Active Problem Pure hypercholesterolemia E78.00 Active Problem Uncontrolled type 2 diabetes mellitus without complication, without long- term current use of insulin E11.65 Active Problem Hypothyroidism, unspecified type E03.9 Active Problem Severe episode of recurrent major depressive disorder, without psychotic features F33.2 Active Medications No Known Medications Results No Known Results Summary Purpose [employer] Submission
--- OUTSIDE RECORDS SUMMARY | 2018-11-07 11:53 | XMS REPORT ---
Author Author Barb Levin Organization [employer] Address Unknown Phone Unavailable Care Team Providers Care Clay Pigeon Setter Name Role Phone Barb Levin CP Unavailable Allergies, Adverse Reactions, Alerts Substance Reaction Event Type pnc rash Drug Allergy Problems Problem Type Condition Code Onset Dates Condition Status Assessment Viral syndrome B34.9 Active Assessment Arthritis M19.90 Active Assessment Uncontrolled type 2 diabetes mellitus without complication, without long-term current use of insulin E11.65 Active Assessment Hypothyroidism, unspecified type E03.9 Active Problem Uncontrolled [...] Start Date End Date Status Dosage Magnesium ND 0 Active not defined Vitamin D3 [facility] 19[address]641 Active not defined Cyclobenzaprine HCl [facility] 22456874358 10 MG Orally Three times a day Active 1 tablet as needed Levemir [facility] [address]-91 100 UNIT/ML Subcutaneous twice a day Active 20-25 units Tri-Chlor [facility] [address]-38 Active not defined Benzonatate [facility] 60090882531 100 MG Orally Three times a day as needed Active 1 capsule as needed GlipiZIDE [facility] 07258302137 10 MG Orally twice a day (bid) Aug 14, 2014 Active 1 tablet Azithromycin [facility] 13299644849 250 MG Orally Once a day Nov 22, 2017 Active 2 tablets on the first day, then 1 tablet daily for 4 days Losartan Potassium [facility] [address]-25 25 MG Orally Once a day Active 1 tablet Albuterol Sulfate HFA [facility] [address]-68 108 (90 Base) MCG/ACT Inhalation every 4 hrs as needed Nov 25, 2017 Active 2 puffs as needed Vital Signs Date/Time: Aug 10, 2018 BMI 25.74 Index Weight 150 lbs Height 64 in Temperature 98.5 F Blood Pressure Diastolic 82 mm Hg Blood Pressure Systolic 152 mm Hg Results Name Result Date Reference Range Unit Abnormality Flag HEMOGLOBIN A1c ----HEMOGLOBIN A1c 10.2 20180810 4.2-5.6 % H Summary Purpose [employer] Submission
--- OUTSIDE RECORDS SUMMARY | 2018-11-07 11:53 | XMS REPORT ---
Author Author Barb Levin Organization [employer] Address Unknown Phone Unavailable Care Team Providers Care Reading Tutor Name Role Phone Barb Levin CP Unavailable Allergies, Adverse Reactions, Alerts Substance Reaction Event Type pnc rash Drug Allergy Problems Problem Type Condition Code Onset Dates Condition Status Assessment Arthritis M19.90 Active Assessment Uncontrolled type [...] Instructions Start Date End Date Status Dosage Losartan Potassium [facility] 17741668502 25 MG Orally Once a day Active 1 tablet Levemir [facility] 05867949038 100 UNIT/ML Subcutaneous twice a day Active 20- 25 units Azithromycin ND 28536004919 250 MG Orally Once a day Nov 22, 2017 Active 2 tablets on the first day, then 1 tablet daily for 4 days Tri-Chlor [facility] [place] [address]-55 Active not defined Albuterol Sulfate HFA [facility] [place] [address]-78 108 (90 Base) MCG/ACT Inhalation every 4 hrs as needed Nov 25, 2017 Active 2 puffs as needed Levemir Flex touch ND 25906784571 100 units intradermal bid Aug 14, 2018 February 10, 2019 Active 30 units Cyclobenzaprine HCl ND 53588544679 10 MG Orally Three times a day Active 1 tablet as needed GlipiZIDE ND 81190231272 10 MG Orally twice a day (bid) Aug 14, 2014 Active 1 tablet Benzonatate ND 48251554612 100 MG Orally Three times a day as needed Active 1 capsule as needed Magnesium ND 0 Active not defined NovoLog Flexpen ND 83529462328 100 UNIT/ML Subcutaneous tid Aug 14, 2018 Active 5 units Vitamin D3 [facility] [place] [address] Active not defined Vital Signs Date/Time: Aug 14, 2018 BMI 25.92 Index Weight 151 lbs Height 64 in Temperature 97.3 F Blood Pressure Diastolic 77 mm Hg Blood Pressure Systolic 153 mm Hg Results No Known Results Summary Purpose [employer] Submission
--- OUTSIDE RECORDS SUMMARY | 2018-11-07 11:53 | XMS REPORT ---
Author Author Barb Levin Organization [employer] Address Unknown Phone Unavailable Care Team Providers Care Welcome Hostess Name Role Phone Barb Levin CP Unavailable [...]
--- OUTSIDE RECORDS SUMMARY | 2018-11-07 11:53 | XMS REPORT ---
Author Author Barb Levin Organization [employer] Address Unknown Phone Unavailable Care Team Providers Care Principal Statistical Programmer Name Role Phone Barb Levin CP Unavailable Encounters Encounter Location Date new pt /[place] Dec 14, 2016 Unknown [place] Dec 17, 2016 Refills [place] Dec 17, 2016 Problems Problem Type Condition ICD-9 Code Onset Dates Condition Status Problem Hypothyroidism, unspecified type E03.9 Active Problem Uncontrolled type 2 diabetes mellitus without complication, without long- term current use of insulin E11.65 Active Problem Gastroesophageal reflux disease without esophagitis K21.9 Active Problem Uncontrolled hypertension I10 Active Problem Pure hypercholesterolemia E78.00 Active Problem Severe episode of recurrent major depressive disorder, without psychotic features F33.2 Active Medications Medication Code System Code Instructions Start Date End Date Status Dosage Januvia MEDISPAN [address]-97 50 MG Orally Once a day Dec 17, 2016 Active 1 tablet Lipitor MEDISP[facility] [address]-31 40 MG Orally Once a day Aug 14, 2014 Active 1 tablet Social History Social History Element Qualifiers Date [...] 2016 Occupation: . disability Dec 14, 2016 Summary Purpose [employer] Submission
--- OUTSIDE RECORDS SUMMARY | 2018-11-07 11:53 | XMS REPORT ---
Author Author Barb Levin Organization [employer] Address Unknown Phone Unavailable Care Team Providers Care Police Surgeon Name Role Phone Barb Levin CP Unavailable Allergies, Adverse Reactions, Alerts Substance Reaction Event Type pnc rash Drug Allergy Problems Problem Type Condition Code Onset Dates Condition Status Assessment Influenza A J10.1 Active Problem Gastroesophageal reflux disease without esophagitis K21.9 Active Problem Hypothyroidism, unspecified type E03.9 Active Problem Uncontrolled hypertension I10 Active Problem Uncontrolled type 2 diabetes mellitus without complication, without long- term current use of insulin E11.65 Active Assessment Acute bronchitis, unspecified organism J20.9 Active Problem Severe episode of recurrent major depressive disorder, without psychotic features F33.2 Active Problem Pure hypercholesterolemia E78.00 Active Medications Medication Code System Code Instructions Start Date End Date Status Dosage Tamiflu [facility] 03211143501 75 MG Orally Twice a day Active 1 capsule Benzonatate [facility] 79279866512 100 MG Orally Three times a day as needed Active 1 capsule as needed Albuterol Sulfate HFA [facility] [address]-09 108 (90 Base) MCG/ACT Inhalation every 4 hrs as needed Nov 25, 2017 Active 2 puffs as needed Losartan Potassium ND 63399057591 25 MG Orally Once a day Active 1 tablet Guaifenesin [facility] 89766828569 400 MG Orally every 4 hrs Active 1 tablet as needed Tessalon Perles [facility] 30570464255 100 mg Orally Three times a day Nov 23, 2017 Dec 03, 2017 Active 1 capsule as needed PredniSONE ND 30954288492 20 mg Orally Once a day Nov 25, 2017 Nov 30, 2017 Active 1 tablet Promethazine-Codeine [facility] 38730267380 6.25-10 MG/5ML Orally every 8 hrs as needed Nov 25, 2017 Dec 02, 2017 Active 5 ml as needed Levemir ND 20948827479 100 UNIT/ML Subcutaneous Active not defined GlipiZIDE ND 11849607878 10 MG Orally twice a day (bid) Aug 14, 2014 Active 1 tablet Azithromycin NDC 29534650999 250 MG Orally Once a day Nov 22, 2017 Active 2 tablets on the first day, then 1 tablet daily for 4 days Vital Signs Date/Time: Nov 25, 2017 BMI 26.60 Index Weight 155 lbs Height 64 in Temperature 99.0 F Blood Pressure Diastolic 88 mm Hg Blood Pressure Systolic 138 mm Hg Results No Known Results Summary Purpose [employer] Submission
--- OUTSIDE RECORDS SUMMARY | 2018-11-07 11:53 | XMS REPORT ---
Author Author Barb Levin Organization [employer] Address Unknown Phone Unavailable Care Team Providers Care Ripsaw Grader Name Role Phone Barb Levin CP Unavailable Encounters Encounter Location Date new pt /[place] Dec 14, 2016 Unknown [place] Dec 17, 2016 Problems Problem Type Condition ICD-9 Code Onset Dates Condition Status Problem Hypothyroidism, unspecified type E03.9 Active Problem Uncontrolled type 2 diabetes mellitus without complication, without long- term current use of insulin E11.65 Active Problem Gastroesophageal reflux disease without esophagitis K21.9 Active Problem Uncontrolled hypertension I10 Active Assessment Diabetes mellitus without mention of complication, type II or unspecified type, uncontrolled 250.02 Active Problem Pure hypercholesterolemia E78.00 Active Problem Severe episode of recurrent major depressive disorder, without psychotic features F33.2 Active Medications Medication Code System Code Instructions Start Date End Date Status Dosage Januvia MEDISPAN [address]-21 50 MG Orally Once a day Dec 17, 2016 Active 1 tablet Lipitor MEDISPAN [address]-61 40 MG Orally Once a day Aug [...]
--- OUTSIDE RECORDS SUMMARY | 2018-11-07 11:53 | XMS REPORT ---
Author Author Barb Levin Organization [employer] Address Unknown Phone Unavailable Care Team Providers Care Scrap Piler Name Role Phone Barb Levin CP Unavailable Allergies, Adverse Reactions, Alerts Substance Reaction Event Type pnc rash Drug Allergy Problems Problem Type Condition Code Onset Dates Condition Status Problem Pure hypercholesterolemia E78.00 Active Problem Uncontrolled type 2 diabetes mellitus without complication, without long- term current use of insulin E11.65 Active Problem Bilateral incipient cataracts H26.9 Active Problem Arthritis M19.90 Active Problem SLE (systemic lupus erythematosus related syndrome) M32.9 Active Problem Hypothyroidism, unspecified type E03.9 Active Problem Severe episode of recurrent major depressive disorder, without psychotic features F33.2 Active Problem Uncontrolled hypertension I10 Active Problem Gastroesophageal reflux disease without esophagitis K21.9 Active Assessment Preoperative general physical examination Z01.818 Active Assessment SLE (systemic lupus erythematosus related syndrome) M32.9 Active Assessment Bilateral incipient cataracts H26.9 Active Assessment Uncontrolled type 2 diabetes mellitus without complication, without long-term current use of insulin E11.65 Active Medications Medication Code System Code Instructions Start Date End Date Status Dosage Levemir [facility] 91998184314 100 UNIT/ML Subcutaneous twice a day Active 20- 25 units Losartan Potassium ND 96685402766 25 MG Orally Once a day Active 1 tablet Duloxetine HCl [facility] 97019049464 30 MG Orally Once a day Sep 11, 2018 Active 1 capsule NovoLog Flexpen ND 23426701009 100 UNIT/ML Subcutaneous tid Aug 14, 2018 Active 5 units Vitamin D3 [facility] [address] Active not defined Cyclobenzaprine HCl ND 47718511227 10 MG Orally Three times a day Active 1 tablet as needed Levemir Flex touch ND 60291025013 100 units intradermal bid Aug 14, 2018 February 10, 2019 Active 30 units Tramadol HCl ND 67648025154 50 MG Orally every 8 hrs Active 1 tablet as needed Magnesium NDC 0 Active not defined Albuterol Sulfate HFA [facility] [address]-98 108 (90 Base) MCG/ACT Inhalation every 4 hrs as needed Nov 25, 2017 Active 2 puffs as needed Tri-Chlor [facility] [address]-26 Active not defined Vital Signs Date/Time: Oct 04, 2018 BMI 26.09 Index Weight 152 lbs Height 64 in Temperature 97.7 F Blood Pressure Diastolic 74 mm Hg Blood Pressure Systolic 121 mm Hg Results No Known Results Summary Purpose [employer] Submission
[2018-11-07 16:00] VITALS: BP 139/83
== END | disposition home or self-care (01) ==
LOC: OR 11:46 → EDBD 19:00
PROVIDERS: ATTEND Ophthalmology
DX: H25.11 Age-related nuclear cataract, right eye (principal); I10 Essential (primary) hypertension; E11.9 Type 2 diabetes mellitus without complications; Z79.4 Long term (current) use of insulin; M19.90 Unspecified osteoarthritis, unspecified site; E78.5 Hyperlipidemia, unspecified; J45.909 Unspecified asthma, uncomplicated; F32.9 Major depressive disorder, single episode, unspecified; M32.9 Systemic lupus erythematosus, unspecified; F17.210 Nicotine dependence, cigarettes, uncomplicated; Z88.0 Allergy status to penicillin
CPT/HCPCS: 36415; 82948; J2250; V2632